=== PATIENT | male | born 1950 | race Caucasian/White ===

== ENCOUNTER 2016-09-09 09:33 | Emergency (ER) | payer MEDICARE, OTHER ==
--- NOTE | 2016-09-09 10:11 | ERPHSYRPT ---
- History of Present Illness Time Seen by Provider: 09/09/16 10:00 Source: patient, EMS Exam Limitations: no limitations Patient Subjective Stated Complaint: PT FOUND BY SPOUSE THIS AM UNRESPONSIVE IN BED, PT DOESN'T RECALL EVENTS PRIOR TO EMS ARRIVAL. PT STATES HE IS DIABETIC AND HIS BS WAS FOUND TO BE 37. PT STATES HE JUST "FEELS FUNNY". Triage Nursing Assessment: PT IS ALERT AND TALKING, TX TO TRT AREA PER EMS, SKIN IS PWD, RESPS ARE EASY AND NON LABORED. Physician History: The patient is a 66-year-old male with his brought in by ambulance from home where he was not responding in his normal self this morning when he woke up. The alarm was sent for 7:30 and he did not wake up to turn it off. After about a half an hour later, his noticed that she was not acting his usual self. He is diabetic so she checked his blood sugar and found that it was 37. She gave him some cake icing and Mountain Dew before EMS arrived. He was then given oral glucose and has been feeling much better. Yesterday evening he ate a large helping of spaghetti, garlic toast, a peanut butter cookie, and then an apple for a snack at night. He has not changed his medicines. For the past week he has been having low back pain. He also has a low-grade fever. He denies abdominal pain, cough, or urinary problems. His past medical history is significant for diabetes, high blood pressure, high cholesterol, BPH, congestive heart failure, GERD, kidney stones, and rheumatoid arthritis. Timing/Duration: today Severity: moderate Modifying Factors: Improves With: eating Associated Symptoms: malaise, weakness Allergies/Adverse Reactions: moxifloxacin [From Avelox] Allergy (Verified 09/09/16 09:49) tizanidine Allergy (Verified 09/09/16 09:49) midazolam [From Versed] Adverse Reaction (Verified 09/09/16 09:49) Penicillins Adverse Reaction (Verified 09/09/16 09:49) spironolactone [From Aldactone] Adverse Reaction (Verified 09/09/16 09:49) Home Medications: Acetaminophen [Acetaminophen Extra Strength] 500 mg PO Q4HPRN PRN 09/09/16 [ History] Acetaminophen [Tylenol] 325 mg PO Q4HPRN PRN 09/09/16 [History] Amlodipine Besylate/Benazepril [Lotrel 10-20 mg Capsule] 1 each PO DAILY [History] Aspirin 81 gm Chew [Baby Aspirin 81 mg Chew] 81 mg PO DAILY 09/09/16 [ History] Carvedilol [Coreg] 25 mg PO BID 09/09/16 [History] Cholecalciferol (Vitamin D3) [Vitamin D] 2,000 unit PO QAM 09/09/16 [ History] Fluticasone/Salmeterol Disc [Advair 250-50 Diskus 14 Dose] 1 each IH BID 09/09/16 [History] Furosemide 20 mg [Lasix 20 mg] 20 mg PO DAILY 09/09/16 [History] Glipizide 10 mg [Glucotrol 10 MG] 10 mg PO QAM 09/09/16 [History] Lansoprazole [Prevacid] 40 mg PO DAILY 09/09/16 [History] Magnesium Oxide 400 mg [Mag-Ox 400] 400 mg PO BID 09/09/16 [History] Multivitamin [Multivitamins] 1 each PO DAILY 09/09/16 [History] NPH, Human Insulin Isophane [Humulin N] 40 units SQ HS 09/09/16 [History] NPH, Human Insulin Isophane [Humulin N] 45 unit SQ QAM 09/09/16 [History] Potassium Chloride 10 Meq Tab* [Klor Con 10 MEQ] 10 meq PO DAILY 09/09/16 [ History] Prednisone 7.5 mg PO DAILY 09/09/16 [History] Tamsulosin HCl 0.4 mg [Flomax 0.4 MG] 0.4 mg PO HS 09/09/16 [History] Tramadol HCl 50 mg [Ultram 50 mg] 50 mg PO TID PRN 09/09/16 [History] Vitamin E 400 Units [Vitamin E 400 UNIT SOFTGEL] 400 unit PO DAILY [History] Zolpidem Tartrate [Ambien] 10 mg PO HS 09/09/16 [History] Hx Tetanus, Diphtheria Vaccination/Date Given: Yes Hx Influenza Vaccination/Date Given: Yes Hx Pneumococcal Vaccination/Date Given: No Immunizations Up to Date: Yes - Review of Systems Constitutional: Fever Eyes: No Symptoms Ears, Nose, & Throat: No Symptoms Respiratory: No Cough, No Dyspnea Cardiac: No Chest Pain, No Edema, No Syncope Abdominal/Gastrointestinal: No Abdominal Pain, No Nausea, No Vomiting, No Diarrhea Genitourinary Symptoms: No Dysuria Musculoskeletal: Back Pain Skin: No Rash Neurological: Lethargy Psychological: No Symptoms Endocrine: No Symptoms Hematologic/Lymphatic: No Symptoms Immunological/Allergic: No Symptoms All Other Systems: Reviewed and Negative - Past Medical History Pertinent Past Medical History: Yes Cardiac History: Arrhythmia, Other Respiratory History: Asthma Endocrine Medical History: Diabetes Type II GI Medical History: GERD, Other Male Reproductive Disorders: Prostate Problems - Past Surgical History Past Surgical History: Yes Cardiac: Cardiac Catheterization, Internal Defibrillator, Pacemaker Gastrointestinal: Other Genitourinary: Other Musculoskeletal: Joint Replacement, Orthopedic Surgery Other Surgical History: CARPAL TUNNEL, CHYLOUS MESENTERY CYST, KIDNEY STONE - Social History Smoking Status: Never smoker Exposure to second hand smoke: No Drug Use: none - Nursing Vital Signs Nursing Vital Signs: Initial Vital Signs Temperature 98.0 F Pulse Rate 74 Respiratory Rate 18 Blood Pressure [Right Arm] 126/69 Pain Intensity 0 - Physical Exam General Appearance: no apparent distress, alert Eye Exam: PERRL/EOMI, eyes nml inspection Ears, Nose, Throat Exam: normal ENT inspection, TMs normal, pharynx normal, moist mucous membranes Neck Exam: normal inspection, non-tender, supple, full range of motion Respiratory Exam: normal breath sounds, lungs clear, No respiratory distress Cardiovascular Exam: regular rate/rhythm, normal heart sounds, normal peripheral pulses Gastrointestinal/Abdomen Exam: soft, normal bowel sounds, No tenderness, No mass Rectal Exam: not done Back Exam: normal inspection, normal range of motion, No CVA tenderness, No vertebral tenderness Extremity Exam: normal inspection, normal range of motion, pelvis stable Neurologic Exam: alert, oriented x 3, cooperative, normal mood/affect, nml cerebellar function, nml station & gait, sensation nml, No motor deficits Skin Exam: normal color, warm, dry, No rash Lymphatic Exam: No adenopathy SpO2 Interpretation: normal SpO2: 98 Oxygen Delivery: Room Air Ordered Tests: Active Orders 24 hr Category Date Time Status ACCUCHECK [Accucheck] STAT Care 09/09/16 10:19 Active IV Insertion STAT Care 09/09/16 10:18 Active CBC W DIFF Stat Lab 09/09/16 10:30 Completed CMP Stat Lab 09/09/16 10:30 Completed Lactic Acid Urgent Lab 09/09/16 10:50 Completed UA W/RFX UR CULTURE Stat Lab 09/09/16 10:30 Completed Medication Summary Discontinued Medications Generic Name Dose Route Start Last Admin Trade Name Ellen PRN Reason Stop Dose Admin Sodium Chloride 1,000 mls @ 999 mls/hr 09/09/16 10:18 09/09/16 10:30 Sodium Chloride 0.9% 1000 Ml IV 09/09/16 11:18 999 mls/hr .Q1H1M STA Administration Sodium Chloride Confirm 09/09/16 10:26 Sodium Chloride 0.9% 1000 Ml Administered 09/09/16 10:27 Dose 1,000 mls @ ud .ROUTE .STK-MED ONE Lab/Rad Data: Laboratory Result Diagrams 09/09/16 10:30 09/09/16 10:30 Laboratory Results 09/09/16 09/09/16 09/09/16 Range/Units 10:50 10:30 10:30 WBC (4.0-10.5) K/mm3 RBC (4.1-5.6) M/mm3 Hgb (12.5-18.0) gm/dl Hct (42-50) % MCV (78-100) fl MCH (26-32) pg MCHC (32-36) g/dl RDW (11.5-14.0) % Plt Count (150-450) K/mm3 MPV (6-9.5) fl Gran % (36.0-66.0) % Lymphocytes % (24.0-44.0) % Monocytes % (0.0-12.0) % Eosinophils % (0.00-5.0) % Basophils % (0.0-0.4) % Basophils # (0-0.4) Sodium 140 (136-145) mEq/L Potassium 3.7 (3.5-5.1) mEq/L Chloride 104 (98-107) mEq/L Carbon Dioxide 29.7 (21-32) mEq/L Anion Gap 10.0 (5-15) MEQ/L BUN 15 (9-20) mg/dL Creatinine 0.96 (0.55-1.30) mg/dl Estimated GFR > 60 ML/MIN Glucose 126 H (70-110) MG/DL Lactic Acid 1.6 (0.4-2.0) Calcium 8.7 (8.5-10.1) mg/dL Total Bilirubin 0.70 (0.2-1.0) mg/dL AST 21 (15-37) U/L ALT 23 (12-78) U/L Alkaline Phosphatase 42 L (46-116) U/L Serum Total Protein 7.2 (6.4-8.2) gm/dL Albumin 3.8 (3.4-5.0) g/dL Ur Collection Type VOID Urine Color YELLOW (YELLOW) Urine Appearance CLEAR (CLEAR) Urine pH 6.5 (5-6) Ur Specific [place] 1.025 (1.005-1.025) Urine Protein NEGATIVE (Negative) Urine Glucose (UA) NEGATIVE (NEGATIVE) mg/dL Urine Ketones NEGATIVE (NEGATIVE) Urine Nitrite NEGATIVE (NEGATIVE) Urine Bilirubin NEGATIVE (NEGATIVE) Urine Urobilinogen 0.2 (0-1) mg/dL Urine WBC (Auto) NEGATIVE (NEGATIVE) Urine RBC (Auto) NEGATIVE (0-5) Cade/ul Specimen Received 09/09/16 1053 09/09/16 Range/Units 10:30 WBC 5.3 (4.0-10.5) K/mm3 RBC 4.69 (4.1-5.6) M/mm3 Hgb 13.0 (12.5-18.0) gm/dl Hct 42.2 (42-50) % MCV 90.0 (78-100) fl MCH 27.7 (26-32) pg MCHC 30.8 L (32-36) g/dl RDW 13.0 (11.5-14.0) % Plt Count 196 (150-450) K/mm3 MPV 9.8 H (6-9.5) fl Gran % 58.7 (36.0-66.0) % Lymphocytes % 29.2 (24.0-44.0) % Monocytes % 12.1 H (0.0-12.0) % Eosinophils % 0.0 (0.00-5.0) % Basophils % 0.0 (0.0-0.4) % Basophils # 0 (0-0.4) Sodium (136-145) mEq/L Potassium (3.5-5.1) mEq/L Chloride (98-107) mEq/L Carbon Dioxide (21-32) mEq/L Anion Gap (5-15) MEQ/L BUN (9-20) mg/dL Creatinine (0.55-1.30) mg/dl Estimated GFR ML/MIN Glucose (70-110) MG/DL Lactic Acid (0.4-2.0) Calcium (8.5-10.1) mg/dL Total Bilirubin (0.2-1.0) mg/dL AST (15-37) U/L ALT (12-78) U/L Alkaline Phosphatase (46-116) U/L Serum Total Protein (6.4-8.2) gm/dL Albumin (3.4-5.0) g/dL Ur Collection Type Urine Color (YELLOW) Urine Appearance (CLEAR) Urine pH (5-6) Ur Specific [place] (1.005-1.025) Urine Protein (Negative) Urine Glucose (UA) (NEGATIVE) mg/dL Urine Ketones (NEGATIVE) Urine Nitrite (NEGATIVE) Urine Bilirubin (NEGATIVE) Urine Urobilinogen (0-1) mg/dL Urine WBC (Auto) (NEGATIVE) Urine RBC (Auto) (0-5) Cade/ul Specimen Received - Progress Progress: improved Counseled pt/family regarding: lab results, diagnosis, need for follow-up, rad results - Departure Time of Disposition: 11:41 Departure Disposition: Home Clinical Impression: Hypoglycemia Condition: Stable Critical Care Time: No Additional Instructions: You had a hypoglycemic event this morning. Your laboratory results were all normal. You were given 1 L of normal saline by IV in the ER. You are being released to home. Continue with your usual routine. Do not change her medications at this time. Follow-up next week as scheduled with your primary medical doctor. Return to the ER if your condition worsens.
[2016-09-09] MEDS ORDERED: Sodium Chloride 0.9% 1000 ML 1,000 ML IV STA (10:18)
[2016-09-09] MEDS ORDERED: Sodium Chloride 0.9% 1000 ML 1,000 ML ONE (10:26)
[2016-09-09 10:50] LABS: ADD URINE CULTURE? NO (NO); COMPLETE URINE MICROSCOPIC? NO; Collection Type VOID; Ph 6.5 (5-6)
[2016-09-09 10:54] LABS: Granulocytes % 58.7 % (36.0-66.0); Lymphocytes % 29.2 % (24.0-44.0); Mean Corpuscular Hemoglobin 27.7 pg (26-32); Mean Platelet Volume 9.8 fl (6-9.5); Monocytes % 12.1 % (0.0-12.0); Platelet Count 196 K/mm3 (150-450); Red Blood Count 4.69 M/mm3 (4.1-5.6); White Blood Count 5.3 K/mm3 (4.0-10.5)
[2016-09-09 11:13] LABS: ALBUMIN 3.8 g/dL (3.4-5.0); ALKALINE PHOSPHATASE 42 U/L (46-116); BLOOD UREA NITROGEN 15 mg/dL (9-20); CHLORIDE 104 mEq/L (98-107); Carbon Dioxide 29.7 mEq/L (21-32); Glucose 126 MG/DL (70-110); Potassium 3.7 mEq/L (3.5-5.1); SGOT/AST 21 U/L (15-37); SGPT/ALT 23 U/L (12-78); SODIUM 140 mEq/L (136-145); Total Protein 7.2 gm/dL (6.4-8.2)
[2016-09-09 11:27] VITALS: PULSE 74
[2016-09-09 11:58] VITALS: BP 131/74; O2SAT 97
== END 2016-09-09 11:57 | disposition home or self-care (01) ==
LOC: ED 09:33
DX: E16.2 Hypoglycemia, unspecified (principal); E11.9 Type 2 diabetes mellitus without complications; Z79.84 Long term (current) use of oral hypoglycemic drugs; Z79.4 Long term (current) use of insulin; Z79.899 Other long term (current) drug therapy; I10 Essential (primary) hypertension; E78.00 Pure hypercholesterolemia, unspecified; I50.9 Heart failure, unspecified; K21.9 Gastro-esophageal reflux disease without esophagitis
CPT/HCPCS: 36415; 80053; 81002; 82962; 83605; 85025; 96360; 99284

== ENCOUNTER 2017-10-14 05:14 | Observation (INO) | payer MEDICARE, OTHER ==
[2017-10-14] MEDS ORDERED: Sodium Chloride 0.9% 1000 ML 1,000 ML IV STA (05:31)
[2017-10-14] MEDS ORDERED: NITRO-BID 2% UD PACKETS TOP ONE (05:31)
[2017-10-14] MEDS ORDERED: BABY ASPIRIN 81 MG CHEW PO ONE (05:31)
[2017-10-14] MEDS ORDERED: MORPHINE SULFATE 4 MG INJ IV ONE (05:31)
[2017-10-14] MEDS ORDERED: Sodium Chloride 0.9% 1000 ML 1,000 ML ONE (05:41)
[2017-10-14 05:43] LABS: BASOPHIL % 0.1 % (0.0-0.4); Basophil (Absolute #) 0.01 (0-0.4); Eosinophil % 0.1 % (0.00-5.0); Eosinophil (Absolute #) 0.01 (0-0.5); Granulocyte Absolute (ANC) 6.69 (1.4-6.9); Granulocytes % 77.9 % (36.0-66.0); Hematocrit 39.1 % (42-50); Hemoglobin 12.6 gm/dl (12.5-18.0); Lymphocyte (Absolute #) 1.17 (1.0-4.6); Lymphocytes % 13.6 % (24.0-44.0); Mean Cell Volume 87.5 fl (78-100); Mean Corpuscular Hemoglobin 28.2 pg (26-32); Mean Corpuscular Hgb Concent. 32.2 g/dl (32-36); Mean Platelet Volume 9.6 fl (6-9.5); Monocyte (Absolute #) 0.71 (0.0-1.3); Monocytes % 8.3 % (0.0-12.0); Platelet Count 221 K/mm3 (150-450); Red Blood Count 4.47 M/mm3 (4.1-5.6); Red Cell Distribution Width 13.1 % (11.5-14.0); White Blood Count 8.6 K/mm3 (4.0-10.5)
--- NOTE | 2017-10-14 05:57 | ERPHSYRPT ---
- History of Present Illness Time Seen by Provider: 10/14/17 05:55 Historian: patient, family Exam Limitations: no limitations Patient Subjective Stated Complaint: pt is alert and oriented. pt is ambulatory. pt comes in with c/o chest pain. pt denies nausea, vomiting, diaphoresis, lightheadedness, dizziness. pt has had this chest pain for 3 days with some SOB over those days. tonight he describes his pain as a pressure in his chest. Triage Nursing Assessment: see above Physician History: pt comes in with c/o chest pain. pt denies nausea, vomiting, diaphoresis, lightheadedness, dizziness. pt has had this chest pain for 3 days with some SOB over those days. tonight he describes his pain as a pressure in his chest. Timing/Duration: today Activities at Onset: none Quality: aching Location: substernal Chest Pain Radiation: back Severity of Pain-Max: moderate Severity of Pain-Current: moderate Modifying Factors: Improves With: nothing Associated Symptoms: fatigue, weakness Prior Chest Pain/Cardiac Workup: cardiac cath, stress test Nitro Today/Relief: no nitro taken today Aspirin Treatment Today: 81 mg x 1 Allergies/Adverse Reactions: moxifloxacin [From Avelox] Allergy (Verified 09/09/16 09:49) tizanidine Allergy (Verified 09/09/16 09:49) midazolam [From Versed] Adverse Reaction (Verified 09/09/16 09:49) Penicillins Adverse Reaction (Verified 09/09/16 09:49) spironolactone [From Aldactone] Adverse Reaction (Verified 09/09/16 09:49) Hx Tetanus, Diphtheria Vaccination/Date Given: Yes Hx Influenza Vaccination/Date Given: Yes Hx Pneumococcal Vaccination/Date Given: Yes Immunizations Up to Date: Yes - Review of Systems Constitutional: No Fever, No Chills Eyes: No Symptoms Ears, Nose, & Throat: No Symptoms Respiratory: No Cough, No Dyspnea Cardiac: Chest Pain, No Edema, No Syncope Abdominal/Gastrointestinal: No Abdominal Pain, No Nausea, No Vomiting, No Diarrhea Genitourinary Symptoms: No Dysuria Musculoskeletal: No Back Pain, No Neck Pain Skin: No Rash Neurological: No Dizziness, No Focal Weakness, No Sensory Changes Psychological: No Symptoms Endocrine: No Symptoms All Other Systems: Reviewed and Negative - Past Medical History Pertinent Past Medical History: Yes Cardiac History: Arrhythmia, Other Respiratory History: Asthma Endocrine Medical History: Diabetes Type II Musculoskeletal History: Rheumatoid Arthritis GI Medical History: GERD, Other History: No Pertinent History Psycho-Social History: No Pertinent History Male Reproductive Disorders: Prostate Problems - Past Surgical History Past Surgical History: Yes Cardiac: Cardiac Catheterization, Internal Defibrillator, Pacemaker Gastrointestinal: Other Genitourinary: Other Musculoskeletal: Joint Replacement, Orthopedic Surgery Other Surgical History: CARPAL TUNNEL, CHYLOUS MESENTERY CYST, KIDNEY STONE - Social History Smoking Status: Never smoker Exposure to second hand smoke: No Drug Use: none Patient Lives Alone: No - Nursing Vital Signs Nursing Vital Signs: Initial Vital Signs Temperature 99.1 F 10/14/17 05:15 Pulse Rate 91 H 10/14/17 05:15 Respiratory Rate 16 10/14/17 05:15 Blood Pressure 165/79 10/14/17 05:15 O2 Sat by Pulse Oximetry 96 10/14/17 05:15 Pain Scale Pain Intensity 6 - Physical Exam General Appearance: no apparent distress, alert Eye Exam: PERRL/EOMI, eyes nml inspection Ears, Nose, Throat Exam: normal ENT inspection, moist mucous membranes Neck Exam: normal inspection, non-tender, supple, full range of motion Respiratory Exam: normal breath sounds, lungs clear, No respiratory distress Cardiovascular Exam: regular rate/rhythm, normal heart sounds Gastrointestinal/Abdomen Exam: soft, No tenderness, No mass Back Exam: normal inspection, No CVA tenderness, No vertebral tenderness Extremity Exam: normal inspection, normal range of motion Neurologic Exam: alert, oriented x 3, cooperative, normal mood/affect, sensation nml, No motor deficits Skin Exam: normal color, warm, dry SpO2: 96 Oxygen Delivery: Room Air - Course Nursing assessment & vital signs reviewed: Yes EKG Interpreted by Me: Sinus Rhythm - Radiology Exams Chest X-ray Interpretation: Reviewed by me Ordered Tests: Active Orders 24 hr Category Date Time Status EKG-ER Only STAT Care 10/14/17 05:31 Active Oxygen-ED Only NASAL CANNULA 2 lpm Care 10/14/17 05:31 Active CHEST 1 VIEW (PORTABLE) Stat Exams 10/14/17 05:34 Completed CBC W DIFF Stat Lab 10/14/17 05:39 Completed CMP Stat Lab 10/14/17 05:39 Completed D-DIMER QUANTITATION Stat Lab 10/14/17 05:39 Completed NT PRO BNP Stat Lab 10/14/17 05:39 Completed TROPONIN Q3H Lab 10/14/17 05:39 Completed TROPONIN Q3H Lab 10/14/17 08:45 Ordered TROPONIN Q3H Lab 10/14/17 11:45 Ordered TROPONIN Q3H Lab 10/14/17 14:45 Ordered TROPONIN Q3H Lab 10/14/17 17:45 Ordered Medication Summary Discontinued Medications Generic Name Dose Route Start Last Admin Trade Name Ellen PRN Reason Stop Dose Admin Aspirin 81 mg 10/14/17 05:31 10/14/17 06:46 Baby Aspirin 81 Mg Chew PO 10/14/17 05:32 81 mg STAT ONE Administration Aspirin Confirm 10/14/17 06:25 Baby Aspirin 81 Mg Chew Administered 10/14/17 06:26 Dose 81 mg .ROUTE .STK-MED ONE Sodium Chloride 1,000 mls @ 999 mls/hr 10/14/17 05:31 10/14/17 06:09 Sodium Chloride 0.9% 1000 Ml IV 10/14/17 06:31 999 mls/hr .Q1H1M STA Administration Sodium Chloride Confirm 10/14/17 05:41 Sodium Chloride 0.9% 1000 Ml Administered 10/14/17 05:42 Dose 1,000 mls @ ud .ROUTE .STK-MED ONE Morphine Sulfate 4 mg 10/14/17 05:31 10/14/17 06:46 Morphine Sulfate 4 Mg Inj IV 10/14/17 05:32 4 mg STAT ONE Administration Morphine Sulfate Confirm 10/14/17 06:25 Morphine Sulfate 4 Mg Inj Administered 10/14/17 06:26 Dose 4 mg .ROUTE .STK-MED ONE Nitroglycerin 1 gm 10/14/17 05:31 10/14/17 06:46 Nitro-Bid 2% Ud Packets TOP 10/14/17 05:32 1 gm STAT ONE Administration Nitroglycerin Confirm 10/14/17 06:25 Nitro-Bid 2% Ud Packets Administered 10/14/17 06:26 Dose 1 gm .ROUTE .STK-MED ONE Lab/Rad Data: Laboratory Result Diagrams 10/14/17 05:39 10/14/17 05:39 Laboratory Results 10/14/17 10/14/17 10/14/17 Range/Units 05:39 05:39 05:39 WBC (4.0-10.5) K/mm3 RBC (4.1-5.6) M/mm3 Hgb (12.5-18.0) gm/dl Hct (42-50) % MCV (78-100) fl MCH (26-32) pg MCHC (32-36) g/dl RDW (11.5-14.0) % Plt Count (150-450) K/mm3 MPV (6-9.5) fl Gran % (36.0-66.0) % Eos # (Auto) (0-0.5) Absolute Lymphs (auto) (1.0-4.6) Absolute Monos (auto) (0.0-1.3) Lymphocytes % (24.0-44.0) % Monocytes % (0.0-12.0) % Eosinophils % (0.00-5.0) % Basophils % (0.0-0.4) % Absolute Granulocytes (1.4-6.9) Basophils # (0-0.4) D-Dimer 855 H* (215-500) ng/mL Sodium 135 L (137-145) mmol/L Potassium 4.8 (3.5-5.1) mmol/L Chloride 100 (98-107) mmol/L Carbon Dioxide 28 (22-30) mmol/L Anion Gap 11.7 (5-15) MEQ/L BUN 24 H (9-20) mg/dL Creatinine 0.61 L (0.66-1.25) mg/dL Estimated GFR > 60.0 ML/MIN Glucose 274 H (74-106) mg/dL Calcium 9.3 (8.4-10.2) mg/dL Total Bilirubin 0.70 (0.2-1.3) mg/dL AST 31 (17-59) U/L ALT 23 (0-50) U/L Alkaline Phosphatase 43 (38-126) U/L Troponin I 0.025 (0.000-0.034) ng/mL NT-Pro-B Natriuret Pep 216 (0-900) pg/mL Serum Total Protein 6.8 (6.3-8.2) g/dL Albumin 4.2 (3.5-5.0) g/dL 10/14/17 Range/Units 05:39 WBC 8.6 (4.0-10.5) K/mm3 RBC 4.47 (4.1-5.6) M/mm3 Hgb 12.6 (12.5-18.0) gm/dl Hct 39.1 L (42-50) % MCV 87.5 (78-100) fl MCH 28.2 (26-32) pg MCHC 32.2 (32-36) g/dl RDW 13.1 (11.5-14.0) % Plt Count 221 (150-450) K/mm3 MPV 9.6 H (6-9.5) fl Gran % 77.9 H (36.0-66.0) % Eos # (Auto) 0.01 (0-0.5) Absolute Lymphs (auto) 1.17 (1.0-4.6) Absolute Monos (auto) 0.71 (0.0-1.3) Lymphocytes % 13.6 L (24.0-44.0) % Monocytes % 8.3 (0.0-12.0) % Eosinophils % 0.1 (0.00-5.0) % Basophils % 0.1 (0.0-0.4) % Absolute Granulocytes 6.69 (1.4-6.9) Basophils # 0.01 (0-0.4) D-Dimer (215-500) ng/mL Sodium (137-145) mmol/L Potassium (3.5-5.1) mmol/L Chloride (98-107) mmol/L Carbon Dioxide (22-30) mmol/L Anion Gap (5-15) MEQ/L BUN (9-20) mg/dL Creatinine (0.66-1.25) mg/dL Estimated GFR ML/MIN Glucose (74-106) mg/dL Calcium (8.4-10.2) mg/dL Total Bilirubin (0.2-1.3) mg/dL AST (17-59) U/L ALT (0-50) U/L Alkaline Phosphatase (38-126) U/L Troponin I (0.000-0.034) ng/mL NT-Pro-B Natriuret Pep (0-900) pg/mL Serum Total Protein (6.3-8.2) g/dL Albumin (3.5-5.0) g/dL - Progress Progress: improved Air Movement: good Blood Culture(s) Obtained: No Antibiotics given: No Discussed with : Nate Will see patient in: hospital (observation) Counseled pt/family regarding: lab results, diagnosis, need for follow-up, rad results - Departure Time of Disposition: 06:54 Departure Disposition: Observation Clinical Impression: Elevated d-dimer Chest pain Qualifiers: Chest pain type: other chest pain Qualified Code(s): R07.89 - Other chest pain ; R07.8 - Other chest pain Condition: Fair Critical Care Time: Yes Critical Care Time(excluding separately billable procedures): 30-74 minutes Referrals: ANGEL VERMA MD [Primary Care Provider] -
[2017-10-14 06:00] LABS: ALBUMIN 4.2 g/dL (3.5-5.0); ALKALINE PHOSPHATASE 43 U/L (38-126); ANION GAP 11.7 MEQ/L (5-15); BLOOD UREA NITROGEN 24 mg/dL (9-20); CHLORIDE 100 mmol/L (98-107); Calcium 9.3 mg/dL (8.4-10.2); Carbon Dioxide 28 mmol/L (22-30); Creatinine 1 0.61 mg/dL (0.66-1.25); Glucose 274 mg/dL (74-106); Potassium 4.8 mmol/L (3.5-5.1); SGOT/AST 31 U/L (17-59); SGPT/ALT 23 U/L (0-50); SODIUM 135 mmol/L (137-145); Total Protein 6.8 g/dL (6.3-8.2)
[2017-10-14 06:09] LABS: NT PRO BNP 216 pg/mL (0-900)
--- NOTE | 2017-10-14 06:10 | XRAY ---
Indication: Chest pain. Comparison: January 13, 2016. Portable apical lordotic chest remains clear again with a few incidental calcified granulomas. Heart is not enlarged again with left-sided dual lead pacemaker. Vascularity normal. Bony thorax intact with minimal degenerative changes. Impression: Stable nonacute chest with chronic features.
[2017-10-14] MEDS ORDERED: NITRO-BID 2% UD PACKETS ONE (06:25)
[2017-10-14] MEDS ORDERED: MORPHINE SULFATE 4 MG INJ ONE (06:25)
[2017-10-14] MEDS ORDERED: BABY ASPIRIN 81 MG CHEW ONE (06:25)
[2017-10-14] MEDS ORDERED: MAALOX ES 30 ML UNIT DOSE PO PRN (07:45)
[2017-10-14] MEDS ORDERED: MILK OF MAGNESIA 30 ML PO PRN (07:45)
[2017-10-14] MEDS ORDERED: Senokot-S Tablet PO PRN (07:45)
[2017-10-14] MEDS ORDERED: Zofran 4 MG/2 ML VIAL IV PRN (07:45)
[2017-10-14] MEDS ORDERED: TYLENOL 325 MG PO PRN (07:45)
[2017-10-14] MEDS ORDERED: MORPHINE SULFATE 2 MG INJ IV PRN ×2 (08:40→09:15)
[2017-10-14] MEDS ORDERED: MORPHINE SULFATE 4 MG INJ IV PRN (09:10)
[2017-10-14] MEDS ORDERED: ULTRAM 50 MG PO PRN (09:33)
[2017-10-14] MEDS ORDERED: TYLENOL EXTRA STRENGTH 500 MG PO PRN (09:48)
[2017-10-14] MEDS ORDERED: LANSOPRAZOLE 40 MG PO SCH (10:00)
[2017-10-14] MEDS ORDERED: Klor Con 10 MEQ PO SCH (10:00)
[2017-10-14] MEDS ORDERED: Advair Hfa 115/21 Common canister IH SCH (10:00)
[2017-10-14] MEDS ORDERED: Protonix 40MG Tablet PO SCH (10:00)
[2017-10-14] MEDS ORDERED: NON-FORMULARY ITEM (Fluticasone/Vilanterol [Breo Ellipta 100-25 Mcg Inh] 1 EACH) IH SCH (10:00)
[2017-10-14] MEDS ORDERED: ECOTRIN 81 MG PO SCH (10:00)
[2017-10-14] MEDS ORDERED: COREG 12.5 MG PO SCH (10:00)
[2017-10-14] MEDS ORDERED: NON-FORMULARY ITEM (Carvedilol [Coreg] 25 MG) PO SCH (10:00)
[2017-10-14] MEDS ORDERED: Flomax 0.4 MG PO SCH (10:00)
[2017-10-14] MEDS ORDERED: Ecotrin 325 MG PO SCH (10:00)
[2017-10-14] MEDS ORDERED: DELTASONE 5 MG PO SCH (10:00)
[2017-10-14] MEDS ORDERED: BABY ASPIRIN 81 MG CHEW PO SCH (10:00)
[2017-10-14] MEDS ORDERED: NON-FORMULARY ITEM (Cholecalciferol (Vitamin D3) [Vitamin D] 2,000 UNIT) PO SCH (10:00)
[2017-10-14] MEDS ORDERED: NON-FORMULARY ITEM (Amlodipine Besylate/Benazepril [Lotrel 10-20 Mg Capsule] 1 EACH) PO SCH (10:00)
[2017-10-14] MEDS ORDERED: Lotrel 5/10 MG PO SCH (10:00)
[2017-10-14] MEDS ORDERED: ENOXAPARIN SODIUM SQ SCH (10:00)
[2017-10-14] MEDS ORDERED: MAG-OX 400 PO SCH (10:00)
[2017-10-14] MEDS ORDERED: Novolin N SQ SCH (10:00)
[2017-10-14] MEDS ORDERED: LASIX 20 MG PO SCH (10:00)
[2017-10-14] MEDS ORDERED: VITAMIN D PO SCH (10:00)
[2017-10-14] MEDS: Vitamin E 400 UNIT SOFTGEL PO SCH ×2 (10:56→11:03)
[2017-10-14 12:07] VITALS: BP 133/61; PULSE 74; O2SAT 96
[2017-10-14] MEDS ORDERED: THERAGRAN MULTIVITAMIN PO SCH (22:00)
[2017-10-14] MEDS ORDERED: Ambien 10 MG PO SCH (22:00)
[2017-10-14] MEDS ORDERED: NON-FORMULARY ITEM (Multivitamin [Multivitamins] 1 EACH) PO SCH (22:00)
== END 2017-10-14 13:45 | disposition short-term general hospital (02) ==
LOC: ED 05:14 → MED SURG 07:42
PROVIDERS: ADMIT General Practice; ATTEND General Practice
DX: R07.89 Other chest pain (principal); R79.89 Other specified abnormal findings of blood chemistry; Z79.899 Other long term (current) drug therapy; E11.9 Type 2 diabetes mellitus without complications
CPT/HCPCS: 36415; 71045; 80053; 83036; 83880; 84484; 85025; 85379; 93005; 93268; 96374; 99285; G0378; J1650; J2270; A9270-GY

== ENCOUNTER 2018-07-11 11:53 | Emergency (ER) | payer MEDICARE, OTHER ==
[2018-07-11 12:29] VITALS: BP 158/83; PULSE 82; O2SAT 98
[2018-07-11 12:38] LABS: BASOPHIL % 0.1 % (0.0-0.4); Basophil (Absolute #) 0.01 (0-0.4); Eosinophil % 0.1 % (0.00-5.0); Eosinophil (Absolute #) 0.01 (0-0.5); Granulocyte Absolute (ANC) 8.94 (1.4-6.9); Granulocytes % 84.9 % (36.0-66.0); Hemoglobin 13.2 gm/dl (12.5-18.0); Lymphocyte (Absolute #) 0.87 (1.0-4.6); Lymphocytes % 8.3 % (24.0-44.0); Mean Cell Volume 88.2 fl (78-100); Mean Corpuscular Hemoglobin 27.7 pg (26-32); Mean Corpuscular Hgb Concent. 31.4 g/dl (32-36); Monocytes % 6.6 % (0.0-12.0); Platelet Count 212 K/mm3 (150-450); Red Blood Count 4.76 M/mm3 (4.1-5.6); Red Cell Distribution Width 14.5 % (11.5-14.0); White Blood Count 10.5 K/mm3 (4.0-10.5)
--- NOTE | 2018-07-11 12:50 | ERPHSYRPT ---
- History of Present Illness Time Seen by Provider: 07/11/18 12:25 Source: patient, family Patient Subjective Stated Complaint: sore on right foot 4th toe since May. states just not healing. got off ATB last monday. Triage Nursing Assessment: alert and in no distress. c/o non healing sore to right 4th toes since may. has been taking care of it with Dr Verma and PT for wound care. has been slightly bleeding but no yellow drainage per pt. redness at toes. + pedal pulse present. Physician History: 68 y/o diabetic white male presents with chronic wound right 4th toe. pt just completed clindamycin antibx. pt is undergoing wound care. pt sent here to ED today because of concern infection worse. pts pcp is dr. verma. pt denies increase in pain. denies fever. however, redness and wound worse. Method of Injury: other (chronic open wound) Occurred: other (chronic) Severity of Pain-Max: none Severity of Pain-Current: none Lower Extremities Pain: 4th toe: right Modifying Factors: Improves With: other (sx worsening despite antibx and wound care) Allergies/Adverse Reactions: moxifloxacin [From Avelox] Allergy (Verified 09/09/16 09:49) tizanidine Allergy (Verified 09/09/16 09:49) midazolam [From Versed] Adverse Reaction (Verified 09/09/16 09:49) Penicillins Adverse Reaction (Verified 09/09/16 09:49) spironolactone [From Aldactone] Adverse Reaction (Verified 09/09/16 09:49) Home Medications: Acetaminophen [Tylenol Extra Strength] 500 mg PO Q6H PRN 10/14/17 [History] Amlodipine Besylate/Benazepril [Lotrel 10-20 mg Capsule] 1 each PO DAILY [History] Aspirin 81 mg PO DAILY 10/14/17 [History] Carvedilol [Coreg] 25 mg PO BID 10/14/17 [History] Cholecalciferol (Vitamin D3) [Vitamin D] 2,000 unit PO DAILY 10/14/17 [History] Fluticasone/Vilanterol [Breo Ellipta 100-25 Mcg INH] 1 each IH DAILY 10/14/17 [ History] Furosemide 20 mg [Lasix 20 mg] 20 mg PO DAILY 10/14/17 [History] Insulin NPH Human Recom [Novolin N] 40 unit SQ BID 10/14/17 [History] Lansoprazole [Prevacid] 40 mg PO DAILY 10/14/17 [History] Magnesium Oxide 400 mg [Mag-Ox 400] 400 mg PO BID 10/14/17 [History] Multivitamin [Multivitamins] 1 each PO HS 10/14/17 [History] Potassium Chloride 10 Meq Tab* [Klor Con 10 MEQ] 10 meq PO DAILY 10/14/17 [ History] Prednisone 7.5 mg PO DAILY 10/14/17 [History] Tamsulosin HCl [Flomax] 0.4 mg PO DAILY 10/14/17 [History] Tramadol HCl 50 mg [Ultram 50 mg] 50 mg PO TID PRN 10/14/17 [History] Vitamin E 400 unit PO DAILY 10/14/17 [History] Zolpidem Tartrate 10 mg [Ambien 10 MG] 10 mg PO HS 10/14/17 [History] Hx Tetanus, Diphtheria Vaccination/Date Given: Yes Hx Influenza Vaccination/Date Given: Yes Hx Pneumococcal Vaccination/Date Given: Yes Immunizations Up to Date: (unsure) - Review of Systems Constitutional: No Symptoms Eyes: No Symptoms Ears, Nose, & Throat: No Symptoms Respiratory: No Symptoms Cardiac: No Symptoms Abdominal/Gastrointestinal: No Symptoms Genitourinary Symptoms: No Symptoms Musculoskeletal: Other (right foot 4th toe worsening wound and redness) Skin: Cellulitis Neurological: No Symptoms Psychological: No Symptoms Endocrine: No Symptoms Hematologic/Lymphatic: No Symptoms Immunological/Allergic: No Symptoms All Other Systems: Reviewed and Negative - Past Medical History Pertinent Past Medical History: Yes Neurological History: No Pertinent History Cardiac History: Coronary Artery Disease, Hypertension, Myocardial Infarction ( [place]) Respiratory History: Asthma Endocrine Medical History: Diabetes Type I Musculoskeletal History: Osteoarthritis, Rheumatoid Arthritis GI Medical History: GERD, Other History: No Pertinent History Psycho-Social History: No Pertinent History Male Reproductive Disorders: Prostate Problems Other Medical History: PACEMAKER/DEFIBRILLATOR 09/2009. HX [place] 2017 - Past Surgical History Past Surgical History: Yes Cardiac: Cardiac Catheterization, Internal Defibrillator, Pacemaker Gastrointestinal: Other Genitourinary: Other Musculoskeletal: Joint Replacement, Orthopedic Surgery Other Surgical History: CARPAL TUNNEL, CHYLOUS MESENTERY CYST, KIDNEY STONE - Social History Smoking Status: Never smoker Exposure to second hand smoke: No Drug Use: none Patient Lives Alone: No - Nursing Vital Signs Nursing Vital Signs: Initial Vital Signs Temperature 99.1 F 07/11/18 12:19 Pulse Rate 82 07/11/18 12:19 Respiratory Rate 18 07/11/18 12:19 Blood Pressure 158/83 07/11/18 12:19 O2 Sat by Pulse Oximetry 98 07/11/18 12:19 Pain Scale Pain Intensity 2 - Physical Exam General Appearance: no apparent distress, alert, anxiety Eyes, Ears, Nose, Throat Exam: normal ENT inspection, moist mucous membranes Neck Exam: normal inspection, non-tender, supple, full range of motion Cardiovascular/Respiratory Exam: chest non-tender, normal breath sounds, regular rate/rhythm Gastrointestinal/Abdominal Exam: non-tender Back Exam: normal inspection, normal range of motion, No CVA tenderness, No vertebral tenderness Hips Exam: bilateral: non-tender, normal inspection, normal range of motion, no evidence of injury Legs Exam: bilateral leg: non-tender, normal inspection, normal range of motion , no evidence of injury Knees Exam: bilateral knee: non-tender, normal inspection, normal range of motion, no evidence of injury Ankle Exam: bilateral ankle: non-tender, normal inspection, normal range of motion, no evidence of injury Foot Exam: right foot: infection (4th digit), swelling (4th digit), left foot: non-tender, normal inspection, normal range of motion, no evidence of injury Neuro/Tendon Exam: normal motor functions Mental Status Exam: alert, oriented x 3, cooperative Skin Exam: other (redness and swelling around right 4th digit infection) SpO2 Interpretation: normal SpO2: 98 O2 Delivery: Room Air Ordered Tests: Active Orders 24 hr Category Date Time Status IV Insertion STAT Care 07/11/18 12:19 Active LOWER EXTREMITY WO CONTRAST [CT] Stat Exams 07/11/18 12:18 Completed BLOOD CULTURE Stat Lab 07/11/18 13:00 Received CBC W DIFF Stat Lab 07/11/18 12:30 Completed CMP Stat Lab 07/11/18 13:00 Completed CULTURE,WOUND Stat Lab 07/11/18 13:36 Ordered Medication Summary Discontinued Medications Generic Name Dose Route Start Last Admin Trade Name Freq PRN Reason Stop Dose Admin Trimethoprim/Sulfamethoxazole 1 tab 07/11/18 13:37 Bactrim Ds Tablet PO 07/11/18 13:38 STAT STA Lab/Rad Data: Laboratory Result Diagrams 07/11/18 12:30 07/11/18 13:00 Laboratory Results 07/11/18 07/11/18 Range/Units 13:00 12:30 WBC 10.5 (4.0-10.5) K/mm3 RBC 4.76 (4.1-5.6) M/mm3 Hgb 13.2 (12.5-18.0) gm/dl Hct 42.0 (42-50) % MCV 88.2 (78-100) fl MCH 27.7 (26-32) pg MCHC 31.4 L (32-36) g/dl RDW 14.5 H (11.5-14.0) % Plt Count 212 (150-450) K/mm3 MPV 10.0 H (6-9.5) fl Gran % 84.9 H (36.0-66.0) % Eos # (Auto) 0.01 (0-0.5) Absolute Lymphs (auto) 0.87 L (1.0-4.6) Absolute Monos (auto) 0.70 (0.0-1.3) Lymphocytes % 8.3 L (24.0-44.0) % Monocytes % 6.6 (0.0-12.0) % Eosinophils % 0.1 (0.00-5.0) % Basophils % 0.1 (0.0-0.4) % Absolute Granulocytes 8.94 H (1.4-6.9) Basophils # 0.01 (0-0.4) Sodium 139 (137-145) mmol/L Potassium 4.2 (3.5-5.1) mmol/L Chloride 99 (98-107) mmol/L Carbon Dioxide 28 (22-30) mmol/L Anion Gap 15.7 H (5-15) MEQ/L BUN 17 (9-20) mg/dL Creatinine 0.76 (0.66-1.25) mg/dL Estimated GFR > 60.0 ML/MIN Glucose 208 H (74-106) mg/dL Calcium 9.6 (8.4-10.2) mg/dL Total Bilirubin 0.70 (0.2-1.3) mg/dL AST 24 (17-59) U/L ALT 24 (0-50) U/L Alkaline Phosphatase 52 (38-126) U/L Serum Total Protein 7.5 (6.3-8.2) g/dL Albumin 4.5 (3.5-5.0) g/dL - Progress Progress: unchanged Progress Note: 07/11/18 13:[address] verma. agrees with tx plan here. will give rx for bactrim ds for home. pt to f/u with dr. verma office on Monday07/13/18 Discussed with : Ntae Counseled pt/family regarding: lab results, diagnosis, need for follow-up, rad results - Departure Departure Disposition: Home Clinical Impression: Toe infection Condition: Stable Critical Care Time: No Referrals: ANGEL VERMA MD [Primary Care Provider] - Additional Instructions: continue same wound care. call dr. verma's office today to arrange follow up appointment with his office on 07/13/18 Prescriptions: Smz/Tmp Ds Tablet [Bactrim Ds Tablet] 1 udtab PO BID #14 tablet
--- NOTE | 2018-07-11 12:55 | XRAY ---
Indication: 4th toe diabetic ulcer. Possible osteomyelitis. Multiple contiguous axial images obtained through the right foot without contrast. Sagittal and coronal reformatted images obtained. Comparison: None Visualized ankle/foot articulation appears anatomic. There are small degenerative subcortical cysts of the 1st-3rd cuneiforms and base 3rd metatarsal. Small plantar heel spur. Partially visualized accessory ossicle posterior to the talus. No acute fracture, dislocation, suspicious bony lesions, or osseous destructive process. Old medial malleolus fracture with 2 intact orthopedic screws. There are heavy scattered vascular calcifications throughout. Impression: Degenerative changes, old medial malleolar fracture, and heavy scattered vascular calcifications. Remaining CT right foot is negative. CTDI 74.34
[2018-07-11 13:13] LABS: ALBUMIN 4.5 g/dL (3.5-5.0); ALKALINE PHOSPHATASE 52 U/L (38-126); ANION GAP 15.7 MEQ/L (5-15); BLOOD UREA NITROGEN 17 mg/dL (9-20); CHLORIDE 99 mmol/L (98-107); Calcium 9.6 mg/dL (8.4-10.2); Carbon Dioxide 28 mmol/L (22-30); Creatinine 1 0.76 mg/dL (0.66-1.25); Glucose 208 mg/dL (74-106); Potassium 4.2 mmol/L (3.5-5.1); SGOT/AST 24 U/L (17-59); SGPT/ALT 24 U/L (0-50); SODIUM 139 mmol/L (137-145); Total Protein 7.5 g/dL (6.3-8.2)
[2018-07-11] MEDS ORDERED: BACTRIM DS TABLET PO STA (13:37)
[2018-07-11] MEDS ORDERED: BACTRIM DS TABLET PO ONE (14:17)
[2018-07-11] MEDS ORDERED: ROCEPHIN 1 Gm-D5w 50 ml Bag** 1 G/50 ML IVPB IV STA (14:22)
[2018-07-11] MEDS ORDERED: ROCEPHIN 1 Gm-D5w 50 ml Bag** 1 G/50 ML IVPB IV ONE (14:22)
== END 2018-07-11 14:47 | disposition home or self-care (01) ==
LOC: ED 11:53
DX: L03.031 Cellulitis of right toe (principal); E10.9 Type 1 diabetes mellitus without complications; I10 Essential (primary) hypertension; I25.10 Atherosclerotic heart disease of native coronary artery without angina pectoris; M06.9 Rheumatoid arthritis, unspecified; J45.909 Unspecified asthma, uncomplicated; K21.9 Gastro-esophageal reflux disease without esophagitis; Z79.899 Other long term (current) drug therapy; Z95.810 Presence of automatic (implantable) cardiac defibrillator
CPT/HCPCS: 36000; 36415; 73700; 80053; 85025; 87040; 87070; 87077; 87186; 96365; 99284; J0696; A9270-GY

== ENCOUNTER 2021-03-17 09:59 | Emergency (ER) | payer MEDICARE, OTHER ==
[2021-03-17] MEDS ORDERED: TORAdol 30 mg Injection IM ONE (10:14)
[2021-03-17] MEDS ORDERED: TORAdol 30 mg Injection ONE (10:18)
[2021-03-17 10:20] VITALS: O2SAT 98
[2021-03-17 10:51] LABS: Appearance CLEAR (CLEAR); Bilirubin NEGATIVE (NEGATIVE); Blood NEGATIVE Ery/ul (0-5); Glucose NEGATIVE (NEGATIVE); Ketones NEGATIVE (NEGATIVE); Leukocyte Esterase NEGATIVE (NEGATIVE); Mucus SLIGHT /HPF (NEGATIVE); Nitrite NEGATIVE (NEGATIVE); Protein,Urine Dip NEGATIVE (Negative); Specific Gravity 1.013 (1.005-1.025); Urobilinogen NEGATIVE mg/dL (0-1)
--- NOTE | 2021-03-17 11:09 | ERPHSYRPT ---
- History of Present Illness Time Seen by Provider: 03/17/21 10:20 Source: patient Exam Limitations: no limitations Patient Subjective Stated Complaint: Back pain Triage Nursing Assessment: Patient ambulated back to ED and transferred self to bed. Patient A+O X3. Patient's skin pink, warm and dry. Patient complains of left sided mid back pain 8/10 that started a few days ago. Patient states he was seen yesterday by Dr. Verma and had a CT scan and labs. Patient has gallbladder ultrasound scheduled on Monday. Patient complains of constant aching pain 8/10. Physician History: Patient is a 71-year-old male presents to our ED with complaints of left-sided low back pain. Patient has been experiencing this pain for 3 days. Patient followed up with his primary care doctor who ordered a CT abdomen pelvis and urinalysis yesterday. CT abdomen pelvis was essentially nonremarkable. UA was also unremarkable. Patient currently rates his pain 8 out of 10. No trauma. No fever. No change in bowel bladder function. No recent back procedures. Upon arrival patient stated his pain was at his left lower back however on exam patient's pain is actually at the left gluteal region. Palpation to this area reproduces symptoms. Overlying soft tissue intact. No signs of trauma. Patient voices no other complaints or concerns at this time. Timing/Duration: day(s) (3 days ago) Severity: moderate Modifying Factors: Improves With: movement Associated Symptoms: denies symptoms, No nausea, No vomiting, No chest pain, No loss of appetite, No malaise, No weakness Allergies/Adverse Reactions: tizanidine Allergy (Severe, Verified 03/17/21 10:06) Anaphylactic Reaction moxifloxacin [From Avelox] Allergy (Mild, Verified 03/17/21 10:06) Fainting midazolam [From Versed] Adverse Reaction (Verified 03/17/21 10:06) Irregular Heart Beat Penicillins Adverse Reaction (Verified 03/17/21 10:06) Hives spironolactone [From Aldactone] Adverse Reaction (Verified 03/17/21 10:06) Irregular Heart Beat Home Medications: Acetaminophen [Tylenol Extra Strength] 500 mg PO Q6H PRN 10/14/17 [History] Amlodipine Besylate/Benazepril [Lotrel 10-20 mg Capsule] 1 each PO DAILY 10/14/17 [History] Aspirin 81 mg PO DAILY 10/14/17 [History] Carvedilol [Coreg] 25 mg PO BID 10/14/17 [History] Cholecalciferol (Vitamin D3) [Vitamin D] 2,000 unit PO DAILY 10/14/17 [History] Fluticasone/Vilanterol [Breo Ellipta 100-25 Mcg INH] 1 each IH DAILY 10/14/17 [History] Furosemide 20 mg [Lasix 20 mg] 20 mg PO DAILY 10/14/17 [History] Magnesium Oxide 400 mg [Mag-Ox 400] 400 mg PO BID 10/14/17 [History] Multivitamin [Multivitamins] 1 each PO HS 10/14/17 [History] Potassium Chloride 10 Meq Tab* [Klor Con 10 MEQ] 10 meq PO DAILY 10/14/17 [History] Tamsulosin HCl [Flomax] 0.4 mg PO DAILY 10/14/17 [History] Vitamin E 400 unit PO DAILY 10/14/17 [History] Zolpidem Tartrate 10 mg [Ambien 10 MG] 10 mg PO HS 10/14/17 [History] predniSONE [Prednisone] 7.5 mg PO DAILY 10/14/17 [History] Famotidine [Pepcid] 40 mg PO DAILY 07/13/18 [History] Insulin NPH/Reg 70/30 [Novolin 70/30] 40 unit SQ UD 07/13/18 [History] Clopidogrel Bisulfate 75 mg [PLAVIX 75 MG Tablet] 1 tab PO DAILY 11/01/18 [History] Finasteride 5 mg [Proscar 5 MG] 10 mg PO DAILY 07/31/20 [History] Hx Tetanus, Diphtheria Vaccination/Date Given: Yes Hx Influenza Vaccination/Date Given: Yes Hx Pneumococcal Vaccination/Date Given: Yes Immunizations Up to Date: Yes Travel Risk - International Travel Have you traveled outside of the country in past 3 weeks: No - Coronavirus Screening Are you exhibiting any of the following symptoms?: No Close contact with a COVID-19 positive Pt in past 14-21 Days: No - Vaccine Status Have you recieved a Covid-19 vaccination: Yes [employer] Forming: Moderna - Vaccination Dates Date of 2cond Vaccination (if applicable): 06/05/2020 Comment: Booster 02/01/2021 - Review of Systems Constitutional: No Symptoms, No Fever, No Chills Eyes: No Symptoms Ears, Nose, & Throat: No Symptoms Respiratory: No Symptoms, No Cough, No Dyspnea Cardiac: No Symptoms, No Chest Pain, No Edema, No Syncope Abdominal/Gastrointestinal: No Symptoms, No Abdominal Pain, No Nausea, No Vomiting, No Diarrhea Genitourinary Symptoms: No Symptoms, No Dysuria Musculoskeletal: No Symptoms, No Back Pain, No Neck Pain Skin: No Symptoms, No Rash Neurological: No Symptoms, No Dizziness, No Focal Weakness, No Sensory Changes Psychological: No Symptoms Endocrine: No Symptoms Hematologic/Lymphatic: No Symptoms Immunological/Allergic: No Symptoms All Other Systems: Reviewed and Negative - Past Medical History Pertinent Past Medical History: Yes Neurological History: No Pertinent History ENT History: Cataracts Cardiac History: Coronary Artery Disease, Hypertension, Myocardial Infarction ([place]) Respiratory History: Asthma Endocrine Medical History: Diabetes Type II Musculoskeletal History: Osteoarthritis, Rheumatoid Arthritis GI Medical History: GERD, Other History: No Pertinent History Psycho-Social History: No Pertinent History Male Reproductive Disorders: Prostate Problems Other Medical History: PACEMAKER/DEFIBRILLATOR 09/2009. HX [place] 2017. osteomylitis to toe on right foot. bariatric chamber - Past Surgical History Past Surgical History: Yes Neuro Surgical History: No Pertinent History Cardiac: Cardiac Catheterization, Internal Defibrillator, Pacemaker Respiratory: No Pertinent History Gastrointestinal: Other Genitourinary: Other Musculoskeletal: Joint Replacement, Orthopedic Surgery Male Surgical History: No Pertinent History Other Surgical History: CARPAL TUNNEL, CHYLOUS MESENTERY CYST (partial small intestine removed), KIDNEY STONE, RTK, R ankle fx, - Social History Smoking Status: Never smoker Exposure to second hand smoke: No Drug Use: none Patient Lives Alone: No - Nursing Vital Signs Nursing Vital Signs: Initial Vital Signs Temperature 97.5 F 03/17/21 10:07 Pulse Rate 78 03/17/21 10:07 Respiratory Rate 18 03/17/21 10:07 Blood Pressure 156/71 03/17/21 10:07 O2 Sat by Pulse Oximetry 98 03/17/21 10:07 Pain Scale Pain Intensity 6 - Physical Exam General Appearance: no apparent distress, alert Eye Exam: PERRL/EOMI, eyes nml inspection Ears, Nose, Throat Exam: normal ENT inspection, TMs normal, pharynx normal, moist mucous membranes Neck Exam: normal inspection, non-tender, supple, full range of motion Respiratory Exam: normal breath sounds, lungs clear, airway intact, No respiratory distress Cardiovascular Exam: regular rate/rhythm, normal heart sounds, normal peripheral pulses Gastrointestinal/Abdomen Exam: soft, normal bowel sounds, No tenderness, No mass Male Genitalia Exam: normal genitalia Rectal Exam: deferred Back Exam: normal inspection, normal range of motion, No CVA tenderness, No vertebral tenderness Extremity Exam: normal inspection, normal range of motion, pelvis stable, other (Tenderness to palpation at left gluteal region. Flexion of the hip produces pain as well. Physical exam suggestive of hip pathology. X-ray ordered.) Neurologic Exam: alert, oriented x 3, cooperative, normal mood/affect, nml cerebellar function, nml station & gait, sensation nml, No motor deficits Skin Exam: normal color, warm, dry, No rash Lymphatic Exam: No adenopathy SpO2 Interpretation: normal SpO2: 98 O2 Delivery: Room Air - Course Nursing assessment & vital signs reviewed: Yes - Radiology Exams Hip X-ray Interpretation: Teleradiologist Report (Osteopenia and degenerative arthritis of left and right hip. Mild lower lumbar degenerative spondylosis and moderate scattered vascular calcifications. Nonspecific mild distended loops without focal dilation or obstruction.) Ordered Tests: Active Orders 24 hr Category Date Time Status HIP UNI (2V) INCL PEL IF DONE Stat Exams 03/17/21 10:21 Ordered KIDNEY [US] Stat Exams 03/17/21 10:13 Taken UA W/RFX UR CULTURE Stat Lab 03/17/21 10:19 Completed Medication Summary Discontinued Medications Generic Name Dose Route Start Last Admin Trade Name Freq PRN Reason Stop Dose Admin Ketorolac Tromethamine 30 mg 03/17/21 10:14 03/17/21 10:20 Ketorolac Tromethamine 30 Mg/Ml Inj IM 03/17/21 10:15 30 mg STAT ONE Administration Ketorolac Tromethamine Confirm 03/17/21 10:18 Ketorolac Tromethamine 30 Mg/Ml Inj Administered 03/17/21 10:19 Dose 30 mg .ROUTE .STK-MED ONE Lab/Rad Data: Laboratory Results 03/17/21 Range/Units 10:19 Urine Color YELLOW (YELLOW) Urine Appearance CLEAR (CLEAR) Urine pH 5.0 (5-6) Ur Specific [place] 1.013 (1.005-1.025) Urine Protein NEGATIVE (Negative) Urine Ketones NEGATIVE (NEGATIVE) Urine Blood NEGATIVE (0-5) Cade/ul Urine Nitrite NEGATIVE (NEGATIVE) Urine Bilirubin NEGATIVE (NEGATIVE) Urine Urobilinogen NEGATIVE (0-1) mg/dL Ur Leukocyte Esterase NEGATIVE (NEGATIVE) Urine WBC (Auto) NONE (0-5) /HPF Urine RBC (Auto) NONE (0-2) /HPF U Epithel Cells (Auto) NONE (FEW) /HPF Urine Bacteria (Auto) NONE (NEGATIVE) /HPF Urine Mucus (Auto) SLIGHT (NEGATIVE) /HPF Urine Culture Reflexed NO (NO) Urine Glucose NEGATIVE (NEGATIVE) mg/dL - Progress Progress: improved Progress Note: Patient reassessed. Pain improved. Pain appears to be emanating from his left gluteal region. On physical exam manipulation of his left hip reproduces pain. X-ray reveals bilateral hip arthropathy. There is lumbar degenerative spondylosis as well. Moderate scattered vascular calcifications. Patient's pain appears to be coming from left hip pathology. I spoke to Dr. Verma our patient's primary care doctor who is aware. Plan of care discussed with patient. He agrees to follow-up with his primary care doctor within 48 hours for reevaluation. He voices no other complaints or concerns at this time. Urinalysis essentially nonremarkable Portions of this note were created with voice recognition technology. There may be grammatical, spelling, punctuation or sound alike errors 03/17/21 11:41 [id number] analgesics as needed. Patient CT performed yesterday under the order of Dr. Verma does not explain our patients pain. 03/17/21 11:47 Discussed with : Adriana Will see patient in: office Counseled pt/family regarding: lab results, diagnosis, need for follow-up, rad results - Departure Departure Disposition: Home Clinical Impression: Osteopenia, Left hip degenerative arthropathy, Arthritis, lumbar spine, Vascular calcification Condition: Stable Critical Care Time: No Referrals: ANGEL VERMA MD [Primary Care Provider] - Follow up/PCP as directed Additional Instructions: Discharge/Care Plan ELANA JOHNSON was seen on 03/17/21 in the Emergency Room. The patient was counseled regarding Diagnosis,Lab results, Imaging studies, need for follow up and when to return to the Emergency Room. Prescriptions given: Discharge Note I have spoken with the patient and/or caregivers. I have explained the patient's condition, diagnosis and treatment plan based on the information available to me at this time. I have answered the patient's and/or caregiver's questions and addressed any concerns. The patient and/or caregivers have as good understanding of the patient's diagnosis, condition and treatment plan as can be expected at this point. The vital signs have been stable. The patient's condition is stable and appropriate for discharge from the emergency department. The patient will pursue further outpatient evaluation with the primary care physician or other designated or consulting physician as outlined in the discharge instructions. The patient and/or caregivers are agreeable to this plan of care and follow-up instructions have been explained in detail. The patient and/or caregivers have received these instruction. The patient/and or caregivers are aware that any significant change in condition or worsening of symptoms should prompt an immediate return to this or the closest emergency department or call 911.
--- NOTE | 2021-03-17 11:35 | XRAY ---
Indication: Pain. Two-dimensional renal sonogram performed. Comparison: None Both kidneys normal in reniform shape with normal perfusion. Right kidney measures 12.6 x 6.4 x 5.5 cm and the left measures 12.6 x 7.0 x 6.0 cm. No focal solid/cystic mass or hydronephrosis. Cortical medullary differentiation preserved. Urinary bladder is empty. Impression: Negative renal sonogram.
--- NOTE | 2021-03-17 11:35 | XRAY ---
Indication: Left pelvic pain. No known injury. Comparison: None AP pelvis and 2 view left hip demonstrates osteopenia, moderate right/mild left hip degenerative arthropathy, mild lower lumbar degenerative spondylosis, and moderate scattered vascular calcifications. Nonspecific mild distended bowel loops without focal dilatation/obstruction.
[2021-03-17 11:59] VITALS: BP 142/71; PULSE 80
== END 2021-03-17 11:59 | disposition home or self-care (01) ==
LOC: ED 09:59
DX: M47.816 Spondylosis without myelopathy or radiculopathy, lumbar region (principal); M85.80 Other specified disorders of bone density and structure, unspecified site; M16.12 Unilateral primary osteoarthritis, left hip; I70.90 Unspecified atherosclerosis; E11.36 Type 2 diabetes mellitus with diabetic cataract; H26.9 Unspecified cataract; Z79.4 Long term (current) use of insulin; I10 Essential (primary) hypertension; I25.2 Old myocardial infarction; Z95.0 Presence of cardiac pacemaker; Z79.01 Long term (current) use of anticoagulants
CPT/HCPCS: 73502; 76770; 81001; 96372; 99284; J1885

== ENCOUNTER 2022-05-31 05:07 | Emergency (ER) | payer MEDICARE, OTHER ==
--- NOTE | 2022-05-31 05:42 | ERPHSYRPT ---
- History of Present Illness Source: patient, family Exam Limitations: no limitations Patient Subjective Stated Complaint: Pt reports "my sugar dropped to low and my said I wouldn't wake up." The patients reports she woke up at approx 0345 and noticed patient was cold and clammy so she checked his blood sugar and it was 49, ambulance was called. Triage Nursing Assessment: Pt alert and oriented x3. Brought in by EMS and scooted self from EMS cot to ED cot without difficulty. No apparent respiratory distress. Skin warm/dry/pale. Fingerstick glucose 103 at 0515. Physician History: 72 yo wm w altered mental status at home which responded to D50 per EMS. According to EMS, pt was minimally responsive w glucose of 49 and improved rap idly w the D50. Pt awake, alert, and oriented x3 upon ER arrival w normal glucose. He states that he feels fine and denies focal weakness/chest pain/dyspnea/headache/N/V but has had some diarrhea according to his . Cough/coryza denied. Severity: moderate Character of Deficits: none Deficits: no difficulties Baseline/Normal Cognition: alert oriented x 3 Current Cognition: alert oriented x 3 Associated Symptoms: denies symptoms Allergies/Adverse Reactions: tizanidine Allergy (Severe, Verified 05/31/22 05:25) Anaphylactic Reaction moxifloxacin [From Avelox] Allergy (Mild, Verified 05/31/22 05:25) Fainting midazolam [From Versed] Adverse Reaction (Verified 05/31/22 05:25) Irregular Heart Beat Penicillins Adverse Reaction (Verified 05/31/22 05:25) Hives spironolactone [From Aldactone] Adverse Reaction (Verified 05/31/22 05:25) Irregular Heart Beat Home Medications: Acetaminophen [Tylenol Extra Strength] 500 mg PO Q6H PRN 10/14/17 [History] Amlodipine Besylate/Benazepril [Lotrel 10-20 mg Capsule] 1 each PO DAILY 10/14/17 [History] Aspirin 81 mg PO DAILY 10/14/17 [History] Carvedilol [Coreg] 25 mg PO BID 10/14/17 [History] Cholecalciferol (Vitamin D3) [Vitamin D] 2,000 unit PO DAILY 10/14/17 [History] Furosemide 20 mg [Lasix 20 mg] 40 mg PO DAILY 10/14/17 [History] Magnesium Oxide 400 mg [Mag-Ox 400] 400 mg PO BID 10/14/17 [History] Multivitamin [Multivitamins] 1 each PO HS 10/14/17 [History] Potassium Chloride Tab* [Klor Con 10 MEQ] 10 meq PO DAILY 10/14/17 [History] Tamsulosin HCl [Flomax] 0.4 mg PO DAILY 10/14/17 [History] Vitamin E 400 unit PO DAILY 10/14/17 [History] Zolpidem Tartrate 10 mg [Ambien 10 MG] 10 mg PO HS 10/14/17 [History] Famotidine [Pepcid] 40 mg PO DAILY 07/13/18 [History] Insulin NPH/Reg 70/30 [Novolin 70/30] 40 unit SQ UD 07/13/18 [History] Fluticasone/Vilanterol [Breo Ellipta 200-25 Mcg INH] See Rx Instructions .ROUTE .COMPLEX 05/31/22 [History] Gabapentin [Neurontin] 300 mg PO BID 05/31/22 [History] Hx Tetanus, Diphtheria Vaccination/Date Given: No Hx Influenza Vaccination/Date Given: Yes Hx Pneumococcal Vaccination/Date Given: No Travel Risk - International Travel Have you traveled outside of the country in past 3 weeks: No - Coronavirus Screening Symptoms: Vomiting/Diarrhea Close contact with a COVID-19 positive Pt in past 14-21 Days: No - Vaccine Status Have you recieved a Covid-19 vaccination: Yes [employer] Developer [employer]er: Moderna - Vaccination Dates Date of 2cond Vaccination (if applicable): 06/05/2020 Comment: Booster 02/01/2021 - Review of Systems Constitutional: No Symptoms Eyes: No Symptoms Ears, Nose, & Throat: No Symptoms Respiratory: No Symptoms Cardiac: No Symptoms Abdominal/Gastrointestinal: No Symptoms, Diarrhea Genitourinary Symptoms: No Symptoms Musculoskeletal: No Symptoms Skin: No Symptoms Neurological: No Symptoms Psychological: No Symptoms Endocrine: No Symptoms Hematologic/Lymphatic: No Symptoms Immunological/Allergic: No Symptoms - Past Medical History Pertinent Past Medical History: Yes Neurological History: No Pertinent History ENT History: Cataracts Cardiac History: Coronary Artery Disease, Hypertension, Myocardial Infarction ([place]) Respiratory History: Asthma Endocrine Medical History: Diabetes Type II Musculoskeletal History: Osteoarthritis, Rheumatoid Arthritis GI Medical History: GERD, Other History: No Pertinent History Psycho-Social History: No Pertinent History Male Reproductive Disorders: Prostate Problems Other Medical History: PACEMAKER/DEFIBRILLATOR 09/2009. HX [place] 2018. osteomylitis to toe on right foot. bariatric chamber. 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), KIDNEY STONE, RTK, R ankle fx, - Social History Smoking Status: Never smoker Exposure to second hand smoke: No Drug Use: none Patient Lives Alone: No Significant Family History: no pertinent family hx - Nursing Vital Signs Nursing Vital Signs: Initial Vital Signs Temperature 96.4 F 05/31/22 05:08 Pulse Rate 96 H 05/31/22 05:08 Respiratory Rate 15 05/31/22 05:08 Blood Pressure 167/78 05/31/22 05:08 O2 Sat by Pulse Oximetry 99 05/31/22 05:08 Pain Scale Pain Intensity 0 Hypertensive - Margaret Coma Scale Best Eye Response (Tran): (4) open spontaneously Best Verbal Response (Tran): (5) oriented Best Motor Response (Tran): (6) obeys commands Margaret Total: 15 - Physical Exam General Appearance: no apparent distress Eye Exam: bilateral eye: normal inspection, PERRL, EOMI Ears, Nose, Throat Exam: normal ENT inspection, TMs normal, pharynx normal, moist mucous membranes Neck Exam: normal inspection, non-tender, supple, full range of motion, No meningismus, No mass, No Brudzinski, No Kernig's Respiratory: normal breath sounds, lungs clear, airway intact Cardiovascular: regular rate/rhythm, normal heart sounds, normal peripheral pulses, No murmur Gastrointestinal: soft, normal bowel sounds, No tenderness Back Exam: normal inspection, normal range of motion Extremity Exam: normal inspection, normal range of motion Peripheral Pulses: carotid (R): 2+, carotid (L): 2+ Mental Status: alert, oriented x 3, 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1-5.6) x10^6/uL Hgb (12.5-18.0) g/dL Hct (42-50) % MCV (78-100) fL MCH (26-32) pg MCHC (32-36) g/dL RDW (11.5-14.0) % Plt Count (150-450) x10^3/uL MPV (7.5-11.0) fL Gran % (36.0-66.0) % Immature Gran % (Auto) (0.00-0.4) % Nucleat RBC Rel Count (0.00-0.1) % Eos # (Auto) (0-0.5) x10^3/uL Immature Gran # (Auto) (0.00-0.03) x10^3u/L Absolute Lymphs (auto) (1.0-4.6) x10^3/uL Absolute Monos (auto) (0.0-1.3) x10^3/uL Absolute Nucleated RBC (0.00-0.01) x10^3u/L Lymphocytes % (24.0-44.0) % Monocytes % (0.0-12.0) % Eosinophils % (0.00-5.0) % Basophils % (0.0-0.4) % Absolute Granulocytes (1.4-6.9) x10^3/uL Basophils # (0-0.4) x10^3/uL Sodium (137-145) mmol/L Potassium (3.5-5.1) mmol/L Chloride (98-107) mmol/L Carbon Dioxide (22-30) mmol/L Anion Gap (5-15) MEQ/L BUN (9-20) mg/dL Creatinine (0.66-1.25) mg/dL Estimated GFR ML/MIN Glucose (74-106) mg/dL POC Glucometer 82 (74 to 106) mg/dL Calcium (8.4-10.2) mg/dL Total Bilirubin (0.2-1.3) mg/dL AST (17-59) U/L ALT (0-50) U/L Alkaline Phosphatase (38-126) U/L Troponin I (0.000-0.034) ng/mL Serum Total Protein (6.3-8.2) g/dL Albumin (3.5-5.0) g/dL Urine Color Yellow (Yellow) Urine Appearance Clear (Clear) Urine pH 5.5 (4.6-8.0) Ur Specific [place] 1.025 (1.005-1.030) Urine Protein Trace A (Negative) Urine Glucose (UA) Negative (Negative) mg/dL Urine Ketones Trace A (Negative) Urine Blood Negative (Negative) Urine Nitrite Negative (Negative) Urine Bilirubin Negative (Negative) Urine Urobilinogen 0.2 (0.2) mg/dL Ur Leukocyte Esterase Negative (Negative) U Hyaline Cast (Auto) NONE SEEN (0-2) /LPF Urine Microscopic RBC 0-2 (0-5) /HPF Urine Microscopic WBC 0-2 (0-5) /HPF Ur Epithelial Cells None Seen (None Seen) /HPF Urine Bacteria None Seen (None Seen) /HPF Urine Culture Reflexed NO (NO) Influenza Type A Ag NEGATIVE (NEGATIVE) Influenza Type B Ag NEGATIVE (NEGATIVE) RSV (PCR) NEGATIVE (Negative) SARS-CoV-2 (PCR) NEGATIVE (NEGATIVE) 05/31/22 05/31/22 05/31/22 Range/Units 05:40 05:40 05:40 WBC 6.0 (4.0-10.5) x10^3/uL RBC 4.62 (4.1-5.6) x10^6/uL Hgb 12.5 (12.5-18.0) g/dL Hct 42.0 (42-50) % MCV 90.9 (78-100) fL MCH 27.1 (26-32) pg MCHC 29.8 L (32-36) g/dL RDW 13.5 (11.5-14.0) % Plt Count 195 (150-450) x10^3/uL MPV 9.5 (7.5-11.0) fL Gran % 71.8 H (36.0-66.0) % Immature Gran % (Auto) 0.3 (0.00-0.4) % Nucleat RBC Rel Count 0.0 (0.00-0.1) % Eos # (Auto) 0.08 (0-0.5) x10^3/uL Immature Gran # (Auto) 0.02 (0.00-0.03) x10^3u/L Absolute Lymphs (auto) 1.10 (1.0-4.6) x10^3/uL Absolute Monos (auto) 0.48 (0.0-1.3) x10^3/uL Absolute Nucleated RBC 0.00 (0.00-0.01) x10^3u/L Lymphocytes % 18.4 L (24.0-44.0) % Monocytes % 8.0 (0.0-12.0) % Eosinophils % 1.3 (0.00-5.0) % Basophils % 0.2 (0.0-0.4) % Absolute Granulocytes 4.29 (1.4-6.9) x10^3/uL Basophils # 0.01 (0-0.4) x10^3/uL Sodium 139 (137-145) mmol/L Potassium 3.5 (3.5-5.1) mmol/L Chloride 102 (98-107) mmol/L Carbon Dioxide 28 (22-30) mmol/L Anion Gap 12.2 (5-15) MEQ/L BUN 18 (9-20) mg/dL Creatinine 0.66 (0.66-1.25) mg/dL Estimated GFR > 60.0 ML/MIN Glucose 99 (74-106) mg/dL POC Glucometer (74 to 106) mg/dL Calcium 8.2 L (8.4-10.2) mg/dL Total Bilirubin 0.40 (0.2-1.3) mg/dL AST 28 (17-59) U/L ALT 19 (0-50) U/L Alkaline Phosphatase 50 (38-126) U/L Troponin I < 0.012 (0.000-0.034) ng/mL Serum Total Protein 6.6 (6.3-8.2) g/dL Albumin 4.0 (3.5-5.0) g/dL Urine Color (Yellow) Urine Appearance (Clear) Urine pH (4.6-8.0) Ur Specific [place] (1.005-1.030) Urine Protein (Negative) Urine Glucose (UA) (Negative) mg/dL Urine Ketones (Negative) Urine Blood (Negative) Urine Nitrite (Negative) Urine Bilirubin (Negative) Urine Urobilinogen (0.2) mg/dL Ur Leukocyte Esterase (Negative) U Hyaline Cast (Auto) (0-2) /LPF Urine Microscopic RBC (0-5) /HPF Urine Microscopic WBC (0-5) /HPF Ur Epithelial Cells (None Seen) /HPF Urine Bacteria (None Seen) /HPF Urine Culture Reflexed (NO) Influenza Type A Ag (NEGATIVE) Influenza Type B Ag (NEGATIVE) RSV (PCR) (Negative) SARS-CoV-2 (PCR) (NEGATIVE) - Progress Progress: improved Progress Note: 05/31/22 05:33 Nursing note and vital signs reviewed No food or housing insecurities noted Pt is a full code Additional history per /son 05/31/22 07:00 No focal weakness during entire stay and pt alert and oriented x 3 during entire stay All labs reviewed and shared w pt/ No hypoglycemia while in ER 06/01/22 23:03 Counseled pt/family regarding: lab results, diagnosis, need for follow-up - Departure Departure Disposition: Home Clinical Impression: Hypoglycemia Condition: Stable Critical Care Time: No Referrals: ANGEL VERMA MD [Primary Care Provider] - Follow up/PCP as directed Instructions: Low Blood Sugar, Adult (DC) Additional Instructions: Follow up with your family MD in 1-2 days Eat a good breakfast Inject only half of your insulin dose this morning Return to ER as needed
[2022-05-31 05:59] LABS: Absolute Neutrophil Ct (ANC) 4.29 x10^3/uL (1.4-6.9); BASOPHIL % 0.2 % (0.0-0.4); Basophil (Absolute #) 0.01 x10^3/uL (0-0.4); Eosinophil % 1.3 % (0.00-5.0); Eosinophil (Absolute #) 0.08 x10^3/uL (0-0.5); Hemoglobin 12.5 g/dL (12.5-18.0); IMMATURE GRAN # 0.02 x10^3u/L (0.00-0.03); IMMATURE GRAN % 0.3 % (0.00-0.4); Lymphocytes % 18.4 % (24.0-44.0); Mean Cell Volume 90.9 fL (78-100); Mean Corpuscular Hemoglobin 27.1 pg (26-32); Mean Corpuscular Hgb Concent. 29.8 g/dL (32-36); Mean Platelet Volume 9.5 fL (7.5-11.0); Monocyte (Absolute #) 0.48 x10^3/uL (0.0-1.3); Neutrophil % 71.8 % (36.0-66.0); Platelet Count 195 x10^3/uL (150-450); Red Blood Count 4.62 x10^6/uL (4.1-5.6); Red Cell Distribution Width 13.5 % (11.5-14.0)
[2022-05-31 06:15] LABS: ALKALINE PHOSPHATASE 50 U/L (38-126); ANION GAP 12.2 MEQ/L (5-15); BLOOD UREA NITROGEN 18 mg/dL (9-20); CHLORIDE 102 mmol/L (98-107); Calcium 8.2 mg/dL (8.4-10.2); Carbon Dioxide 28 mmol/L (22-30); Creatinine 1 0.66 mg/dL (0.66-1.25); EST GLOMERULAR FILTRATION RATE > 60.0 ML/MIN; Glucose 99 mg/dL (74-106); Potassium 3.5 mmol/L (3.5-5.1); SGOT/AST 28 U/L (17-59); SGPT/ALT 19 U/L (0-50); SODIUM 139 mmol/L (137-145); Total Protein 6.6 g/dL (6.3-8.2)
[2022-05-31 06:39] LABS: INFLUENZA A NEGATIVE (NEGATIVE); INFLUENZA B NEGATIVE (NEGATIVE); RESPIRATORY SYNCTIAL VIRUS NEGATIVE (Negative); SARS-CoV-2 Xpert Express NEGATIVE (NEGATIVE)
[2022-05-31 06:54] LABS: Appearance Clear (Clear); Bacteria None Seen /HPF (None Seen); Bilirubin Negative (Negative); Blood Negative (Negative); Epithelial Cells None Seen /HPF (None Seen); Glucose, Urine Negative (Negative); Hyaline Casts NONE SEEN /LPF (0-2); Ketones Trace (Negative); Leukocyte Esterase Negative (Negative); Nitrite Negative (Negative); Ph 5.5 (4.6-8.0); Protein,Urine Dip Trace (Negative); RBC 0-2 /HPF (0-5); Specific Gravity 1.025 (1.005-1.030); Urobilinogen 0.2 mg/dL (0.2); WBC 0-2 /HPF (0-5)
[2022-05-31 06:55] LABS: ADD URINE CULTURE? NO (NO)
[2022-05-31 07:05] VITALS: BP 149/66
[2022-05-31 07:06] VITALS: PULSE 74
[2022-06-01 23:04] VITALS: O2SAT 99
== END 2022-05-31 07:09 | disposition home or self-care (01) ==
LOC: ED 05:07
DX: E11.649 Type 2 diabetes mellitus with hypoglycemia without coma (principal); I10 Essential (primary) hypertension; Z79.4 Long term (current) use of insulin; Z79.899 Other long term (current) drug therapy; Z20.828 Contact with and (suspected) exposure to other viral communicable diseases
CPT/HCPCS: 0241U; 36000; 36415; 80053; 81001; 82947; 84484; 85025; 93005; 99284

== ENCOUNTER 2024-12-17 21:47 | Inpatient (IN) | payer MEDICARE, OTHER ==
--- NOTE | 2024-12-17 21:51 | ERPHSYRPT ---
- History of Present Illness Time Seen by Provider: 12/17/24 21:50 Source: patient Exam Limitations: no limitations Physician History: This is an obese 74-year-old white male patient arrives by private vehicle and is a patient of . Patient has multiple medical problems including coronary artery disease, hypertension, asthma, prostate issues and is an insulin-dependent diabetic. He also has a pacemaker defibrillator in place. Patient has multiple complaints today. Patient states he was doing fine till just after dinner when he noticed pain in his right lower leg when ambulating. There is also some swelling present. He did not fall or have any trauma to the area. He also had a mild cough and was short of breath. Patient is not on any anticoagulation therapy. On arrival to the emergency department patient has a fever of 100.6 F. He has very mild, nonradiating substernal central achiness. Patient did undergo a twelve-lead EKG on 05/31/2022. I interpreted that twelve- lead EKG heart rate 61 bpm and normal sinus rhythm pattern with a QTc of 469 and no acute ischemia. Timing/Duration: today Severity: moderate Associated Symptoms: shortness of breath, cough, chest pain, fever, weakness, No nausea, No vomiting, No abdominal pain Allergies/Adverse Reactions: tizanidine Allergy (Severe, Verified 12/17/24 22:11) Anaphylactic Reaction moxifloxacin [From Avelox] Allergy (Mild, Verified 12/17/24 22:11) Fainting midazolam [From Versed] Adverse Reaction (Verified 12/17/24 22:11) Irregular Heart Beat Penicillins Adverse Reaction (Verified 12/17/24 22:11) Hives spironolactone [From Aldactone] Adverse Reaction (Verified 12/17/24 22:11) Irregular Heart Beat Home Medications: Acetaminophen [Tylenol Extra Strength] 500 mg PO Q6H PRN 10/14/17 [History] Amlodipine Besylate/Benazepril [Lotrel 10-20 mg Capsule] 1 each PO DAILY 10/14/17 [History] Aspirin 81 mg PO DAILY 10/14/17 [History] Cholecalciferol (Vitamin D3) [Vitamin D] 2,000 unit PO DAILY 10/14/17 [History] Furosemide 20 mg [Lasix 20 mg] 40 mg PO DAILY 10/14/17 [History] Magnesium Oxide 400 mg [Mag-Ox 400] 400 mg PO BID 10/14/17 [History] Multivitamin [Multivitamins] 1 each PO HS 10/14/17 [History] Tamsulosin HCl [Flomax] 0.4 mg PO HS 10/14/17 [History] Vitamin E 400 unit PO DAILY 10/14/17 [History] Zolpidem Tartrate 10 mg [Ambien 10 MG] 10 mg PO HS 10/14/17 [History] carvediloL [Coreg] 25 mg PO BID 10/14/17 [History] Famotidine [Pepcid] 40 mg PO DAILY 07/13/18 [History] Insulin NPH/Reg 70/30 [Novolin 70/30] 40 unit SQ UD 07/13/18 [History] Fluticasone/Vilanterol [Breo Ellipta 200-25 Mcg INH] See Rx Instructions .ROUTE .COMPLEX 05/31/22 [History] Gabapentin [Neurontin] 300 mg PO BID 05/31/22 [History] Eplerenone 25 mg PO DAILY 12/17/24 [History] Finasteride 5 mg [Proscar 5 MG] 5 mg PO DAILY 12/17/24 [History] Folic Acid 1 mg [Folate 1 mg] 1 mg PO DAILY 12/17/24 [History] Methotrexate Sodium 2.5 mg [Trexall 2.5 mg] 2.5 mg PO UD 12/17/24 [History] Prednisone 10 mg [Deltasone 10 mg] 5 mg PO DAILY 12/17/24 [History] Tocilizumab [Actemra Actpen] 1 mg SQ WEEKLY 12/17/24 [History] Hx Tetanus, Diphtheria Vaccination/Date Given: No Hx Influenza Vaccination/Date Given: Yes Hx Pneumococcal Vaccination/Date Given: No Travel Risk - International Travel Have you traveled outside of the country in past 3 weeks: No - Emerging Infectious Disease Are you exhibiting symptoms associated with any current EIDs: No Symptoms: Cough: New Onset, Fever, Shortness of Breath - Review of Systems Constitutional: Fever Eyes: No Symptoms Ears, Nose, & Throat: No Symptoms Respiratory: Cough Cardiac: Chest Pain Abdominal/Gastrointestinal: No Symptoms Genitourinary Symptoms: No Symptoms Musculoskeletal: No Symptoms Skin: No Symptoms Neurological: No Symptoms Psychological: No Symptoms Endocrine: No Symptoms Hematologic/Lymphatic: No Symptoms Immunological/Allergic: No Symptoms All Other Systems: Reviewed and Negative - Past Medical History Cardiac History: Hypertension Respiratory History: Asthma Endocrine Medical History: No Pertinent History Musculoskeletal History: No Pertinent History GI Medical History: No Pertinent History History: No Pertinent History Psycho-Social History: No Pertinent History Male Reproductive Disorders: No Pertinent History Other Medical History: PMH: PSH: - Past Surgical History Past Surgical History: Yes Neuro Surgical History: No Pertinent History Cardiac: Cardiac Catheterization, Internal Defibrillator, Pacemaker Respiratory: No Pertinent History Gastrointestinal: Other Genitourinary: Other Musculoskeletal: Joint Replacement, Orthopedic Surgery Male Surgical History: No Pertinent History Other Surgical History: CARPAL TUNNEL, CHYLOUS MESENTERY CYST (partial small intestine removed), KIDNEY STONE, RTK, R ankle fx, Significant Family History: no pertinent family hx - Social History Smoking Status: Never smoker Exposure to second hand smoke: No Drug Use: none Patient Lives Alone: No - Nursing Vital Signs Nursing Vital Signs: Initial Vital Signs Temperature 100.6 F 12/17/24 21:49 Pulse Rate 112 H 12/17/24 21:49 Respiratory Rate 30 H 12/17/24 21:49 Blood Pressure 178/77 12/17/24 21:49 O2 Sat by Pulse Oximetry 93 L 12/17/24 21:49 Pain Scale Pain Intensity 8 - Physical Exam General Appearance: mild distress, alert, anxiety, obese Eye Exam: PERRL/EOMI, eyes nml inspection Ears, Nose, Throat Exam: normal ENT inspection, moist mucous membranes Neck Exam: normal inspection, non-tender, supple, full range of motion Respiratory Exam: normal breath sounds, lungs clear, airway intact, No chest tenderness, No respiratory distress, No wheezing Cardiovascular Exam: tachycardia Gastrointestinal/Abdomen Exam: soft, normal bowel sounds, No tenderness Rectal Exam: not done Back Exam: normal inspection, normal range of motion, No CVA tenderness, No vertebral tenderness Extremity Exam: normal range of motion, pelvis stable, swelling (Right lower extremity below the knee mid tibia distally and laterally), tenderness (Right lower leg mid tibia level distally and laterally), No deformities Neurologic Exam: alert, oriented x 3, cooperative, choir accompanist II-XII nml as tested, normal mood/affect, sensation nml Skin Exam: normal color, warm, dry Lymphatic Exam: No adenopathy SpO2 Interpretation: normal O2 Delivery: Room Air - Course Nursing assessment & vital signs reviewed: Yes EKG Interpreted by Me: RATE (112), Sinus Tach, NORMAL AXIS, NORMAL INTERVALS, NORMAL QRS, Non-specific ST Changes, Other (QTc is 447. No acute ischemia on today's twelve-lead EKG.) Ordered Tests: Active Orders 24 hr Category Date Time Status Mechanical Maintenance Engineer STAT Care 12/17/24 22:12 Active EKG-ER Only STAT Care 12/17/24 22:12 Active IV Insertion STAT Care 12/17/24 22:12 Active Pulse Oximetry (ED) STAT Care 12/17/24 22:12 Active CHEST WITH CONTRAST [CT] Stat Exams 12/17/24 23:30 Completed VENOUS UNILAT/LIMITED EXTREMIT [US] Stat Exams 12/17/24 23:31 Taken BLOOD CULTURE Stat Lab 12/17/24 22:32 Received CBC W DIFF Stat Lab 12/17/24 22:20 Completed CMP Stat Lab 12/17/24 22:20 Completed D-DIMER QUANTITATIVE Stat Lab 12/17/24 22:20 Completed Lactic Acid Stat Lab 12/17/24 22:15 Completed Lactic Acid Stat Lab 12/18/24 00:21 Received MAGNESIUM Stat Lab 12/17/24 22:20 Completed MONO SCREEN Stat Lab 12/17/24 22:32 Completed Manual Differential NC Stat Lab 12/17/24 22:20 Completed NT PRO BNPII Stat Lab 12/17/24 22:20 Completed PROCALCITONIN Stat Lab 12/17/24 22:15 Completed PROTIME WITH INR Stat Lab 12/17/24 22:20 Completed PTT Stat Lab 12/17/24 22:20 Completed TROPONIN Q4H Lab 12/17/24 22:32 Completed TROPONIN Q4H Lab 12/18/24 02:15 Ordered TROPONIN Q4H Lab 12/18/24 06:15 Ordered UA W/RFX UR CULTURE Stat Lab 12/17/24 23:57 Completed Medication Summary Generic Name Dose Route Start Last Admin Trade Name Freq PRN Reason Stop Dose Admin Sodium Chloride 1,000 mls @ 100 mls/hr 12/17/24 22:15 12/18/24 01:32 Sodium Chloride 0.9% 1000 Ml IV 01/16/25 22:14 999 mls/hr .Q10H DL Infusion Discontinued Medications Generic Name Dose Route Start Last Admin Trade Name Ellen PRN Reason Stop Dose Admin Acetaminophen 650 mg 12/17/24 22:39 12/17/24 22:46 Acetaminophen 325 Mg Tablet PO 12/17/24 22:40 650 mg STAT ONE Administration Acetaminophen Confirm 12/17/24 22:46 Acetaminophen 325 Mg Tablet Administered 12/17/24 22:47 Dose 650 mg .ROUTE .STK-MED ONE Hydrocodone Bitart/Acetaminophen 1 tab 12/17/24 23:30 12/17/24 23:58 Hydrocodone/Apap 5/325 1 Tab Tablet PO 12/17/24 23:31 1 tab STAT ONE Administration Hydrocodone Bitart/Acetaminophen Confirm 12/17/24 23:58 Hydrocodone/Apap 5/325 1 Tab Tablet Administered 12/17/24 23:59 Dose 1 tab .ROUTE .STK-MED ONE Morphine Sulfate 2 mg 12/18/24 01:16 12/18/24 01:19 Morphine Sulfate 2 Mg/Ml Inj IV 12/18/24 01:17 2 mg STAT ONE Administration Morphine Sulfate Confirm 12/18/24 01:18 Morphine Sulfate 2 Mg/Ml Inj Administered 12/18/24 01:19 Dose 2 mg .ROUTE .STK-MED ONE Ondansetron HCl 4 mg 12/18/24 01:16 12/18/24 01:19 Ondansetron Hcl 4 Mg/2 Ml Vial IV 12/18/24 01:17 4 mg STAT ONE Administration Ondansetron HCl Confirm 12/18/24 01:18 Ondansetron Hcl 4 Mg/2 Ml Vial Administered 12/18/24 01:19 Dose 4 mg .ROUTE .STK-MED ONE Lab/Rad Data: Laboratory Result Diagrams 12/17/24 22:20 12/17/24 22:20 Laboratory Results 12/17/24 12/17/24 12/17/24 Range/Units 23:57 22:32 22:32 WBC (4.23-9.07) x10^3/uL RBC (4.63-6.08) x10^6/uL Hgb (13.7-17.5) g/dL Hct (40.1-51.0) % MCV (79.0-92.2) fL MCH (25.7-32.2) pg MCHC (32.3-36.5) g/dL RDW (11.6-14.4) % Plt Count (163-337) x10^3/uL MPV (9.4-12.4) fL Segmented Neutrophils (34.0-67.9) % Band Neutrophils (0.0-2.0) % Lymphocytes (Manual) (21.8-53.1) % Monocytes (Manual) (5.3-12.2) % Eosinophils (Manual) (0.8-7.0) % Platelet Estimate (NORMAL) RBC Morphology Macrocytosis PT (9.4-12.5) SECONDS INR (0.8-3.0) APTT (25.1-36.5) SECONDS D-Dimer (0.0-0.50) mg/L Sodium (135-145) mmol/L Potassium (3.5-5.1) mmol/L Chloride (98-107) mmol/L Carbon Dioxide (22-30) mmol/L Anion Gap (5-15) MEQ/L BUN (9-20) mg/dL Creatinine (0.66-1.25) mg/dL Estimated GFR ML/MIN Glucose (74-106) mg/dL Lactic Acid (0.4-2.0) Calcium (8.4-10.2) mg/dL Magnesium (1.6-2.3) mg/dL Total Bilirubin (0.2-1.3) mg/dL AST (17-59) U/L ALT (0-50) U/L Alkaline Phosphatase (38-126) U/L Troponin I (0.000-0.033) ng/mL NT-Pro-B Natriuret Pep (<300) pg/mL Serum Total Protein (6.3-8.2) g/dL Albumin (3.5-5.0) g/dL Procalcitonin (0.030-0.080) ng/mL Urine Color Yellow (Yellow) Urine Appearance Clear (Clear) Urine pH 7.5 (4.6-8.0) Ur Specific [place] 1.020 (1.005-1.030) Urine Protein Negative (Negative) Urine Glucose (UA) Negative (Negative) mg/dL Urine Ketones Trace A (Negative) Urine Blood Negative (Negative) Urine Nitrite Negative (Negative) Urine Bilirubin Negative (Negative) Urine Urobilinogen 1.0 A (0.2) mg/dL Ur Leukocyte Esterase Negative (Negative) U Hyaline Cast (Auto) 3-5 A (0-2) /LPF Urine Microscopic RBC 0-2 (0-5) /HPF Urine Microscopic WBC 0-2 (0-5) /HPF Ur Epithelial Cells None Seen (None Seen) /HPF Urine Bacteria None Seen (None Seen) /HPF Urine Culture Reflexed NO (NO) Monoscreen NEGATIVE (NEGATIVE) Influenza Type A Ag NEGATIVE (NEGATIVE) Influenza Type B Ag NEGATIVE (NEGATIVE) RSV (PCR) NEGATIVE (NEGATIVE) SARS-CoV-2 (PCR) NEGATIVE (NEGATIVE) 12/17/24 12/17/24 12/17/24 Range/Units 22:32 22:20 22:20 WBC (4.23-9.07) x10^3/uL RBC (4.63-6.08) x10^6/uL Hgb (13.7-17.5) g/dL Hct (40.1-51.0) % MCV (79.0-92.2) fL MCH (25.7-32.2) pg MCHC (32.3-36.5) g/dL RDW (11.6-14.4) % Plt Count (163-337) x10^3/uL MPV (9.4-12.4) fL Segmented Neutrophils (34.0-67.9) % Band Neutrophils (0.0-2.0) % Lymphocytes (Manual) (21.8-53.1) % Monocytes (Manual) (5.3-12.2) % Eosinophils (Manual) (0.8-7.0) % Platelet Estimate (NORMAL) RBC Morphology Macrocytosis PT 11.1 (9.4-12.5) SECONDS INR 1.02 (0.8-3.0) APTT 21.1 L (25.1-36.5) SECONDS D-Dimer 4.34 H* (0.0-0.50) mg/L Sodium 136 (135-145) mmol/L Potassium 4.6 (3.5-5.1) mmol/L Chloride 97 L (98-107) mmol/L Carbon Dioxide 28 (22-30) mmol/L Anion Gap 14.3 (5-15) MEQ/L BUN 33 H (9-20) mg/dL Creatinine 1.22 (0.66-1.25) mg/dL Estimated GFR 61.8 ML/MIN Glucose 145 H (74-106) mg/dL Lactic Acid (0.4-2.0) Calcium 9.1 (8.4-10.2) mg/dL Magnesium 2.2 (1.6-2.3) mg/dL Total Bilirubin 0.70 (0.2-1.3) mg/dL AST 31 (17-59) U/L ALT 20 (0-50) U/L Alkaline Phosphatase 52 (38-126) U/L Troponin I 0.013 (0.000-0.033) ng/mL NT-Pro-B Natriuret Pep 194 (<300) pg/mL Serum Total Protein 6.7 (6.3-8.2) g/dL Albumin 4.6 (3.5-5.0) g/dL Procalcitonin (0.030-0.080) ng/mL Urine Color (Yellow) Urine Appearance (Clear) Urine pH (4.6-8.0) Ur Specific [place] (1.005-1.030) Urine Protein (Negative) Urine Glucose (UA) (Negative) mg/dL Urine Ketones (Negative) Urine Blood (Negative) Urine Nitrite (Negative) Urine Bilirubin (Negative) Urine Urobilinogen (0.2) mg/dL Ur Leukocyte Esterase (Negative) U Hyaline Cast (Auto) (0-2) /LPF Urine Microscopic RBC (0-5) /HPF Urine Microscopic WBC (0-5) /HPF Ur Epithelial Cells (None Seen) /HPF Urine Bacteria (None Seen) /HPF Urine Culture Reflexed (NO) Monoscreen (NEGATIVE) Influenza Type A Ag (NEGATIVE) Influenza Type B Ag (NEGATIVE) RSV (PCR) (NEGATIVE) SARS-CoV-2 (PCR) (NEGATIVE) 12/17/24 12/17/24 12/17/24 Range/Units 22:20 22:15 22:15 WBC 14.1 H (4.23-9.07) x10^3/uL RBC 4.02 L (4.63-6.08) x10^6/uL Hgb 12.6 L (13.7-17.5) g/dL Hct 38.7 L (40.1-51.0) % MCV 96.3 H (79.0-92.2) fL MCH 31.3 (25.7-32.2) pg MCHC 32.6 (32.3-36.5) g/dL RDW 13.2 (11.6-14.4) % Plt Count 159 L (163-337) x10^3/uL MPV 10.1 (9.4-12.4) fL Segmented Neutrophils 84 H (34.0-67.9) % Band Neutrophils 4 H (0.0-2.0) % Lymphocytes (Manual) 9 L (21.8-53.1) % Monocytes (Manual) 1 L (5.3-12.2) % Eosinophils (Manual) 2 (0.8-7.0) % Platelet Estimate NORMAL (NORMAL) RBC Morphology ABNORMAL Macrocytosis 1+ PT (9.4-12.5) SECONDS INR (0.8-3.0) APTT (25.1-36.5) SECONDS D-Dimer (0.0-0.50) mg/L Sodium (135-145) mmol/L Potassium (3.5-5.1) mmol/L Chloride (98-107) mmol/L Carbon Dioxide (22-30) mmol/L Anion Gap (5-15) MEQ/L BUN (9-20) mg/dL Creatinine (0.66-1.25) mg/dL Estimated GFR ML/MIN Glucose (74-106) mg/dL Lactic Acid 1.9 (0.4-2.0) Calcium (8.4-10.2) mg/dL Magnesium (1.6-2.3) mg/dL Total Bilirubin (0.2-1.3) mg/dL AST (17-59) U/L ALT (0-50) U/L Alkaline Phosphatase (38-126) U/L Troponin I (0.000-0.033) ng/mL NT-Pro-B Natriuret Pep (<300) pg/mL Serum Total Protein (6.3-8.2) g/dL Albumin (3.5-5.0) g/dL Procalcitonin 0.399 H (0.030-0.080) ng/mL Urine Color (Yellow) Urine Appearance (Clear) Urine pH (4.6-8.0) Ur Specific [place] (1.005-1.030) Urine Protein (Negative) Urine Glucose (UA) (Negative) mg/dL Urine Ketones (Negative) Urine Blood (Negative) Urine Nitrite (Negative) Urine Bilirubin (Negative) Urine Urobilinogen (0.2) mg/dL Ur Leukocyte Esterase (Negative) U Hyaline Cast (Auto) (0-2) /LPF Urine Microscopic RBC (0-5) /HPF Urine Microscopic WBC (0-5) /HPF Ur Epithelial Cells (None Seen) /HPF Urine Bacteria (None Seen) /HPF Urine Culture Reflexed (NO) Monoscreen (NEGATIVE) Influenza Type A Ag (NEGATIVE) Influenza Type B Ag (NEGATIVE) RSV (PCR) (NEGATIVE) SARS-CoV-2 (PCR) (NEGATIVE) - Progress Progress: improved, pain not gone completely, re-examined Progress Note: 12/17/24 23:03 My medical decision making and the assignment of high complexity to this patient's medical issue today is based on review of the patient's past medical history, review patient medication list, reviewed patient drug allergy list, history present with some physical findings on examination. The workup in this patient includes placement of intravenous line, blood cultures x 2, CBC, CMP, lactic acid level, procalcitonin level, troponin level, D-dimer level, twelve- lead EKG, urinalysis, viral swabs, monotest Differential diagnosis includes but is not limited to sepsis, DVT, pulmonary embolism, pneumonia, myocardial infarction, arrhythmia, urinary tract infection, electrolyte abnormalities 12/18/24 01:36 I interpreted the patient's laboratory data results. Based on the laboratory data results the patient has an elevated procalcitonin level and a D-dimer level of 4.34 which is elevated. Patient's urinalysis shows no infection. Patient's viral swabs and monotest are negative. we ordered a CT scan of the chest with contrast and after review of the patient's kidney function and BNP level, we opened up his fluids as a bolus. Will repeat the bolus and then run the fluid on the floor and to 100 mL/h. The CT scan of the chest with contrast was interpreted by the radiologist and I reviewed the impression. Impression states no acute intrathoracic abnormality. No evidence of pulmonary embolus. The venous Doppler of the right lower extremity was performed by the clinical unit coordinator. The clinical unit coordinator provided me with the preliminary report which is negative for DVT. I have reviewed the results with the patient and his family. I spoke spoke with telehospitalist, Dr. Shamar Dumont. I reviewed the patient history, presenting complaint, workup results and the response of the patient's condition to our therapy and intervention. We will place this patient on telemetry and provide him with intravenous fluid, intravenous antibiotics (meropenem), repeat labs and intravenous pain control. Medical Desision Making - Independent Historian Additional History obtained from: Family - Diagnostic Testing Diagnostic test were ordered, analyzed, and reviewed by me: Yes Radiological Interpretation: Reviewed by me, Teleradiologist Report - Risk of complications The pt has a high risk of morbidity or mortality based on: Decision regarding hospitilization or escalation of hosp level of care - Departure Departure Disposition: Observation Clinical Impression: Sepsis, Cellulitis of right leg Condition: Fair Critical Care Time: Yes Critical Care Time(excluding separately billable procedures): Critical 30-74 mins (65) Referrals: ANGEL VERMA MD [Primary Care Provider, INTERNAL MEDICINE] - Follow up/PCP as directed
[2024-12-17 22:42] LABS: Hematocrit 38.7 % (40.1-51.0); Hemoglobin 12.6 g/dL (13.7-17.5); Mean Corpuscular Hemoglobin 31.3 pg (25.7-32.2); Mean Corpuscular Hgb Concent. 32.6 g/dL (32.3-36.5); Platelet Count 159 x10^3/uL (163-337); Red Blood Count 4.02 x10^6/uL (4.63-6.08); White Blood Count 14.1 x10^3/uL (4.23-9.07)
[2024-12-17] MEDS ORDERED: TYLENOL 325 MG ONE (22:46)
[2024-12-17] MEDS: TYLENOL 325 MG PO ONE (22:46)
[2024-12-17 23:05] LABS: INR 1.02 (0.8-3.0); PROTIME 11.1 SECONDS (9.4-12.5); PTT 21.1 SECONDS (25.1-36.5)
[2024-12-17 23:08] LABS: Calcium 9.1 mg/dL (8.4-10.2); Carbon Dioxide 28.0 mmol/L (22-30); Creatinine 1 1.22 mg/dL (0.66-1.25); EST GLOMERULAR FILTRATION RATE 61.8 ML/MIN; Glucose 145.0 mg/dL (74-106); NT PRO BNPII 194.0 pg/mL (<300); Potassium 4.6 mmol/L (3.5-5.1); SGOT/AST 31.0 U/L (17-59); SGPT/ALT 20.0 U/L (0-50); Total Protein 6.7 g/dL (6.3-8.2)
[2024-12-17 23:18] LABS: INFLUENZA A NEGATIVE (NEGATIVE); INFLUENZA B NEGATIVE (NEGATIVE); RESPIRATORY SYNCTIAL VIRUS NEGATIVE (NEGATIVE); SARS-CoV-2 Xpert Express NEGATIVE (NEGATIVE)
[2024-12-17 23:58] LABS: BAND 4 % (0.0-2.0); Total Cells Counted 100
[2024-12-17] MEDS: NORCO 5/325 MG PO ONE (23:58)
[2024-12-17] MEDS ORDERED: NORCO 5/325 MG ONE (23:58)
[2024-12-17 23:59] LABS: Macrocytosis 1+
[2024-12-18 00:18] LABS: Glucose, Urine Negative (Negative); Protein,Urine Dip Negative (Negative); RBC 0-2 /HPF (0-5); WBC 0-2 /HPF (0-5)
--- NOTE | 2024-12-18 00:56 | XRAY ---
CLINICAL HISTORY: CP; SOB; elevated D-dimer COMPARISON: none. TECHNIQUE: Contiguous axial images were obtained from the neck base through the upper abdomen following intravenous administration of contrast material. If IV contrast material had not been administered, the likelihood of detecting abnormalities relevant to the patient's condition would have been substantially decreased. In addition, sagittal and coronal reconstructions were performed. CT scan was performed according to ALARA (as low as reasonably achievable). FINDINGS: No evidence of central pulmonary embolism. Suboptimal study for evaluation of segmental and subsegmental pulmonary arteries due to contrast acquisition. The lungs are clear, with no focal areas of consolidation. No pulmonary nodules are seen. The central airways are patent. There are no pleural effusions. No pneumothorax is seen. No axillary, hilar, or mediastinal adenopathy is identified. The visualized thyroid is unremarkable. The heart, aorta, and pulmonary arteries are of normal size and configuration. No pericardial effusion is identified. Imaged portions of the upper abdomen shows cholelithiasis. No aggressive appearing osseous lesions are identified. IMPRESSION: 1. No acute intrathroacic abnormality detected. 2. No evidence of central pulmonary embolism. 3. Imaged portions of the upper abdomen shows cholelithiasis. Electronically Signed by: Primo Varela MD. (12/18/2024 00:54:26 EDT)
[2024-12-18] MEDS ORDERED: Zofran 4 MG/2 ML VIAL ONE (01:18)
[2024-12-18] MEDS ORDERED: MORPHINE SULFATE 2 MG INJ ONE (01:18)
[2024-12-18] MEDS: MORPHINE SULFATE 2 MG INJ IV ONE (01:19)
[2024-12-18] MEDS: Zofran 4 MG/2 ML VIAL IV ONE (01:19)
[2024-12-18] MEDS: Merrem 1 GM in Sodium Chloride 0.9% 100 ML IV ONE (01:56)
[2024-12-18] MEDS ORDERED: MORPHINE SULFATE 4 MG INJ IV PRN (02:07)
[2024-12-18] MEDS ORDERED: HUMULIN R SQ PRN (02:07)
[2024-12-18] MEDS: Hydromorphone 1 mg/ml Injection IV ONE ×2 (04:31→11:35)
[2024-12-18 05:30] LABS: Hematocrit 36.0 % (40.1-51.0); Hemoglobin 11.2 g/dL (13.7-17.5); Mean Corpuscular Hemoglobin 30.4 pg (25.7-32.2); Mean Corpuscular Hgb Concent. 31.1 g/dL (32.3-36.5); Platelet Count 156 x10^3/uL (163-337); Red Blood Count 3.68 x10^6/uL (4.63-6.08); White Blood Count 17.9 x10^3/uL (4.23-9.07)
[2024-12-18] MEDS ORDERED: Merrem 1 GM in Sodium Chloride 0.9% 100 ML IV SCH ×2 (06:00→10:00)
[2024-12-18 06:15] LABS: Calcium 8.2 mg/dL (8.4-10.2); Carbon Dioxide 27.0 mmol/L (22-30); Creatinine 1 1.32 mg/dL (0.66-1.25); EST GLOMERULAR FILTRATION RATE 56.3 ML/MIN; Glucose 123.0 mg/dL (74-106); NT PRO BNPII 599.0 pg/mL (<300); Potassium 5.1 mmol/L (3.5-5.1); SGOT/AST 28.0 U/L (17-59); SGPT/ALT 15.0 U/L (0-50); Total Protein 5.7 g/dL (6.3-8.2)
--- NOTE | 2024-12-18 07:52 | XRAY ---
Indication: Pain, swelling, elevated d-dimer. Two-dimensional sonogram and color Doppler imaging major venous vessels right leg performed. Comparison: None No thrombus seen in the examined deep venous vessels right leg including greater saphenous vein. Veins demonstrate normal compressibility. Venous waveforms are normal with and without augmentation. Impression: Right leg negative for DVT. Comment: Preliminary report was given.
--- NOTE | 2024-12-18 08:10 | PCM.NOTE ---
Discussed case with Dr. Quiñones (podiatry). Known patient of his; nuclear bone scan planned today for suspected right foot osteomyelitis. Venous Doppler negative for DVT. CT chest w/ contrast shows no PE or acute intrathoracic process. Sepsis most consistent with right foot source. Prior cultures: 11/18/24no growth; 08/28/24Staphylococcus aureus. Allergy profile includes penicillin and moxifloxacin. After pharmacy discussion, will discontinue meropenem and start vancomycin plus cefepime. Obtain blood and wound (and bone, if operative) cultures before antibiotics when feasible. Possible surgical intervention tomorrow pending imaging.
[2024-12-18] MEDS ORDERED: PHARMACY DOSING REQUIRED: VANCOMYCIN IV SCH (08:30)
[2024-12-18 08:50] LABS: BAND 11 % (0.0-2.0); Total Cells Counted 100
[2024-12-18] MEDS: Hydromorphone 1 mg/ml Injection IV PRN (09:52)
[2024-12-18] MEDS: Maxipime 2 GM** 2 G in Sodium Chloride 0.9% 100 ML IV SCH (09:53)
[2024-12-18] MEDS: NORCO 5/325 MG PO PRN (10:24)
[2024-12-18] MEDS ORDERED: NON-FORMULARY ITEM (Fluticasone/Vilanterol [Breo Ellipta 200-25 Mcg Inhalr] 1 EACH Blst.W. SCH (11:30)
[2024-12-18] MEDS: HUMALOG SQ PRN ×2 (11:47→22:18)
[2024-12-18] MEDS: VANCOMYCIN 1 GRAM/200 ML BAG 1 GM/200 ML PIGGYBACK IV SCH (11:47)
[2024-12-18] MEDS ORDERED: MEDICATION INTERVENTION MC SCH ×2 (12:00)
[2024-12-18] MEDS ORDERED: COREG 12.5 MG ONE ×2 (13:46→21:22)
[2024-12-18] MEDS ORDERED: NEURONTIN ONE ×2 (13:46→21:22)
[2024-12-18] MEDS ORDERED: Lotrel 5/10 MG ONE (13:47)
[2024-12-18] MEDS ORDERED: FOLATE 1 MG ONE (13:47)
[2024-12-18] MEDS ORDERED: DELTASONE 5 MG ONE (13:47)
[2024-12-18] MEDS ORDERED: VITAMIN D PO ONE (13:47)
[2024-12-18] MEDS ORDERED: Pepcid 20 MG ONE (13:48)
[2024-12-18] MEDS ORDERED: MAG-OX 400 ONE ×2 (13:48→21:24)
[2024-12-18] MEDS: Vitamin E 400 UNIT SOFTGEL PO SCH ×2 (13:54→14:38)
[2024-12-18] MEDS: Proscar 5 MG PO SCH ×2 (13:55→14:38)
[2024-12-18] MEDS: FOLATE 1 MG PO SCH ×2 (13:55→14:37)
[2024-12-18] MEDS: NEURONTIN PO SCH ×2 (13:55→14:37)
[2024-12-18] MEDS: Lotrel 5/10 MG PO SCH ×2 (13:55→14:37)
[2024-12-18] MEDS: MAG-OX 400 PO SCH ×2 (13:55→14:37)
[2024-12-18] MEDS: COREG 12.5 MG PO SCH ×2 (13:56→14:36)
[2024-12-18] MEDS: Pepcid 20 MG PO SCH ×2 (13:56→14:38)
[2024-12-18] MEDS: DELTASONE 5 MG PO SCH ×2 (13:56→14:37)
[2024-12-18] MEDS: VITAMIN D PO SCH ×2 (13:56→14:38)
--- NOTE | 2024-12-18 17:20 | XRAY ---
Indication: Wheezing. Comparison: December 23, 2021 AP/lateral chest obtained in wheelchair less inflated and remains clear. Heart not enlarged again with left AICD. Bony thorax intact again with osteopenia and mild degenerative changes. Impression: Continued nonacute chest with chronic features.
[2024-12-18 17:38] LABS: Calcium 7.9 mg/dL (8.4-10.2); Carbon Dioxide 25.0 mmol/L (22-30); Creatinine 1 1.4 mg/dL (0.66-1.25); EST GLOMERULAR FILTRATION RATE 52.4 ML/MIN; Glucose 252.0 mg/dL (74-106); Potassium 5.6 mmol/L (3.5-5.1); SGOT/AST 45.0 U/L (17-59); SGPT/ALT 23.0 U/L (0-50); Total Protein 6.2 g/dL (6.3-8.2)
[2024-12-18] MEDS ORDERED: DUONEB 0.5-3 MG/3 ml Neb IH ONE (19:51)
[2024-12-18] MEDS: DUONEB 0.5-3 MG/3 ml Neb IH PRN (19:59)
[2024-12-18] MEDS ORDERED: Ambien 10 MG ONE (21:22)
[2024-12-18] MEDS ORDERED: Tums EX 750 MG ONE (21:22)
[2024-12-18] MEDS ORDERED: Flomax 0.4 MG ONE (21:23)
[2024-12-18] MEDS ORDERED: THERAGRAN MULTIVITAMIN ONE (21:23)
[2024-12-18] MEDS ORDERED: VELTASSA PO ONE (21:26)
[2024-12-18] MEDS: Ambien 10 MG PO SCH (21:35)
[2024-12-18] MEDS: Flomax 0.4 MG PO SCH (21:36)
[2024-12-18] MEDS: Tums EX 750 MG PO SCH (21:36)
[2024-12-18] MEDS: VELTASSA PO STA (21:36)
[2024-12-18] MEDS: THERAGRAN MULTIVITAMIN PO SCH (21:36)
--- NOTE | 2024-12-19 05:27 | PCM.NOTE ---
Date and Time: 12/19/24 0517 Subjective Assessment: Mr. Ruiz is a 74-year-old obese male with a pmhx of coronary artery disease, hypertension, insulin-dependent diabetes mellitus, asthma, prostate disease, and an implanted pacemaker/defibrillator who presented to ED 12/17/24 with multiple complaints after dinner. He noted acute onset of right lower extremity pain with ambulation associated with swelling, without fall or trauma. He also endorsed mild cough, shortness of breath, low-grade fever, and central non-radiating substernal achiness. He is not on anticoagulation therapy. On arrival, he was febrile at 100.6 F. A 12-lead EKG demonstrated sinus rhythm at 61 bpm with QTc 469 ms and no acute ischemic changes. Labs showed elevated procalcitonin, e levated D-dimer (4.34), and BNP checked in context with renal function to guide fluids. UA was negative, viral panel and monospot were negative. CT chest with contrast showed no pulmonary embolism or intrathoracic abnormality. Chest X-ray was clear. Right lower extremity venous Doppler was negative for DVT. Given localized symptoms and known foot pathology, podiatry (Dr. Quiñones) was consulted. Nuclear bone scan was arranged to evaluate suspected right foot osteomyelitis. Prior wound cultures: 11/18/24 with no growth, 08/28/24 positive for Staphylococcus aureus. Currently cultures are growing gram - ID, pending final sensitivity. Antibiotics were transitioned from meropenem to vancomycin plus cefepime/Flagyl after pharmacy review. Blood and wound cultures were ordered prior to antibiotics when feasible. IV fluids were bolused and are running at 100 mL/h. Patient developed 3+ pitting edema and fluids stopped. Overnight, the patient was found to have hyperkalemia. He was treated with patir william (Veltassa) 8.4 g PO 1. Repeat BMP is pending to reassess potassium and renal function. No EKG changes were noted. Potassium levels have now normalized. Patient also noted with 650ml residual following PVR. Will anchor junior. Will add lasix. Surgical intervention may be required pending imaging and podiatry reassessment. 12/19: Patient rested overnight with improved pain control, reports right foot discomfort is now tolerable. No recurrent chest pain, cough, or dyspnea. Febrile trend noted yesterday; currently afebrile. Nursing staff report adequate pain management and improved comfort with ambulation assistance. Nuclear bone scan to be completed today, with podiatry evaluating for possible surgical intervention. Wound culture returned positive for gram-negative organisms; identification pending. IV fluids discontinued in light of bilateral lower extremity pitting edema and history of CHF. Patient started on IV furosemide for volume management and metronidazole was added to broaden anaerobic coverage. Continues on vancomycin and cefepime. Podiatry remains actively involved in management and surgical planning. - Review of Systems Constitutional: Weakness Eyes: No Symptoms Ears, Nose, & Throat: No Symptoms Respiratory: Short Of Breath, Wheezing Cardiac: No Symptoms Abdominal/Gastrointestinal: No Symptoms Genitourinary Symptoms: Urinary Retention Musculoskeletal: No Symptoms Skin: Cellulitis, Skin Lesions Neurological: No Symptoms Psychological: No Symptoms Endocrine: No Symptoms Hematologic/Lymphatic: No Symptoms Immunological/Allergic: No Symptoms Objective Exam General Appearance: no apparent distress Neurologic Exam: alert, oriented x 3, cooperative Skin Exam: other (RLE ext with compression dressing to mid thigh, CDI LLE with 3+Pitting edema) Wound Assessment: Skin/Wound Assessment Wound/Incision Assessment Start: 12/18/24 02:08 Text: Status: Active Freq: Q6H Protocol: Document 12/19/24 00:00 KW (Rec: 12/19/24 00:48 KW [id number]) Wound/Incision Assessment Right lower outer lateral leg (proximal) Wound Assessment Shift Assessment Dressing Status Dry & Intact Drainage Amount None Surrounding Tissue Edematous Comment wrapped, dressing clean/dry/ intact Right lower outer lateral leg (medial) Wound Assessment Shift Assessment Dressing Status Dry & Intact Drainage Amount None Surrounding Tissue Edematous Comment wrapped, dressing clean/dry/ intact Right lower outer lateral leg (distal) Wound Assessment Shift Assessment Dressing Status Dry & Intact Drainage Amount None General Appearance Reddened Surrounding Tissue Edematous Primary Dressing adaptic Comment wrapped, dressing clean/dry/ intact Top of right foot (inner) Wound Assessment Shift Assessment Wound Type Blood blister Wound Stage Non Pressure Wound Dressing Status Dry & Intact Drainage Amount None Surrounding Tissue Edematous Primary Dressing adaptic Comment wrapped, dressing clean/dry/ intact Top of right foot (near 5th toe) Wound Assessment Shift Assessment Dressing Status Dry & Intact Drainage Amount None Drainage Description Purulent Surrounding Tissue Edematous Comment wrapped, dressing clean/dry/ intact Right great toe Wound Assessment Shift Assessment Wound Type Pressure Ulcer Wound Stage Stage III Dressing Status Dry & Intact Drainage Amount None Comment wrapped, dressing clean/dry/ intact Right Lower Leg Wound Assessment Shift Assessment Wound Type cellulitis Wound Stage Non Pressure Wound Dressing Status Dry & Intact Drainage Amount None Drainage Odor None/Absent Surrounding Tissue Edematous Comment wrapped, dressing clean/dry/ intact Wound Photo Photo Taken Yes Date: 12/18/24 Time: 11:00 Eye Exam: PERRL Ears, Nose, Throat Exam: normal ENT inspection Neck Exam: normal inspection Respiratory Exam: diminished breath sounds, wheezing Cardiovascular Exam: regular rate/rhythm, normal heart sounds Gastrointestinal/Abdomen Exam: normal bowel sounds, distention Extremity Exam: pedal edema (BLE Left with 3+ pitting), swelling Male Genitalia Exam: deferred Rectal Exam: deferred Objective Data Vital Signs: Vital Signs - 24 hr Temp Pulse Resp BP Pulse Ox 12/19/24 03:59 98.5 F 89 18 126/60 94 L 12/19/24 00:00 97.7 F 76 18 100/48 95 12/18/24 20:28 77 16 93 L 12/18/24 20:00 97.8 F 79 16 113/53 95 12/18/24 16:33 94 L 12/18/24 16:00 97.7 F 83 16 113/55 91 L 12/18/24 11:09 99.5 F 95 H 16 105/59 93 L 12/18/24 08:02 95 12/18/24 07:21 99.0 F 96 H 16 117/77 92 L Pain Assessment - Last Documented Pain Intensity 4 Pain Scale Used 0-10 Pain Scale Intake and Output: Intake & Output 12/16/24 12/17/24 12/18/24 12/19/24 11:59 11:59 11:59 11:59 Intake Total 280 820 Output Total 100 925 Balance 180 -105 Weight 109.8 kg Lab Results: Lab Results-Last 24 Hours 12/18/24 12/18/24 12/18/24 Range/Units 04:56 04:56 04:56 WBC 17.9 H (4.23-9.07) x10^3/uL RBC 3.68 L (4.63-6.08) x10^6/uL Hgb 11.2 L (13.7-17.5) g/dL Hct 36.0 L (40.1-51.0) % MCV 97.8 H (79.0-92.2) fL MCH 30.4 (25.7-32.2) pg MCHC 31.1 L (32.3-36.5) g/dL RDW 13.5 (11.6-14.4) % Plt Count 156 L (163-337) x10^3/uL MPV 10.0 (9.4-12.4) fL Segmented Neutrophils 81 H (34.0-67.9) % Band Neutrophils 11 H (0.0-2.0) % Lymphocytes (Manual) 7 L (21.8-53.1) % Eosinophils (Manual) 1 (0.8-7.0) % Platelet Estimate NORMAL (NORMAL) RBC Morphology NORMAL Sodium 135 (135-145) mmol/L Potassium 5.1 (3.5-5.1) mmol/L Chloride 101 (98-107) mmol/L Carbon Dioxide 27 (22-30) mmol/L Anion Gap 12.2 (5-15) MEQ/L BUN 36 H (9-20) mg/dL Creatinine 1.32 H (0.66-1.25) mg/dL Estimated GFR 56.3 ML/MIN Glucose 123 H (74-106) mg/dL POC Glucometer (74 to 106) mg/dL Hemoglobin A1c (4.5-6.0) % Lactic Acid (0.4-2.0) Calcium 8.2 L (8.4-10.2) mg/dL Total Bilirubin 0.80 (0.2-1.3) mg/dL AST 28 (17-59) U/L ALT 15 (0-50) U/L Alkaline Phosphatase 42 (38-126) U/L Troponin I 0.039 H* (0.000-0.033) ng/mL NT-Pro-B Natriuret Pep 599 (<300) pg/mL Serum Total Protein 5.7 L (6.3-8.2) g/dL Albumin 3.8 (3.5-5.0) g/dL 12/18/24 12/18/24 12/18/24 Range/Units 05:00 06:00 07:30 WBC (4.23-9.07) x10^3/uL RBC (4.63-6.08) x10^6/uL Hgb (13.7-17.5) g/dL Hct (40.1-51.0) % MCV (79.0-92.2) fL MCH (25.7-32.2) pg MCHC (32.3-36.5) g/dL RDW (11.6-14.4) % Plt Count (163-337) x10^3/uL MPV (9.4-12.4) fL Segmented Neutrophils (34.0-67.9) % Band Neutrophils (0.0-2.0) % Lymphocytes (Manual) (21.8-53.1) % Eosinophils (Manual) (0.8-7.0) % Platelet Estimate (NORMAL) RBC Morphology Sodium (135-145) mmol/L Potassium (3.5-5.1) mmol/L Chloride (98-107) mmol/L Carbon Dioxide (22-30) mmol/L Anion Gap (5-15) MEQ/L BUN (9-20) mg/dL Creatinine (0.66-1.25) mg/dL Estimated GFR ML/MIN Glucose (74-106) mg/dL POC Glucometer 130 H (74 to 106) mg/dL Hemoglobin A1c 6.31 H (4.5-6.0) % Lactic Acid 1.5 (0.4-2.0) Calcium (8.4-10.2) mg/dL Total Bilirubin (0.2-1.3) mg/dL AST (17-59) U/L ALT (0-50) U/L Alkaline Phosphatase (38-126) U/L Troponin I (0.000-0.033) ng/mL NT-Pro-B Natriuret Pep (<300) pg/mL Serum Total Protein (6.3-8.2) g/dL Albumin (3.5-5.0) g/dL 12/18/24 12/18/24 12/18/24 Range/Units 10:26 11:37 16:15 WBC (4.23-9.07) x10^3/uL RBC (4.63-6.08) x10^6/uL Hgb (13.7-17.5) g/dL Hct (40.1-51.0) % MCV (79.0-92.2) fL MCH (25.7-32.2) pg MCHC (32.3-36.5) g/dL RDW (11.6-14.4) % Plt Count (163-337) x10^3/uL MPV (9.4-12.4) fL Segmented Neutrophils (34.0-67.9) % Band Neutrophils (0.0-2.0) % Lymphocytes (Manual) (21.8-53.1) % Eosinophils (Manual) (0.8-7.0) % Platelet Estimate (NORMAL) RBC Morphology Sodium (135-145) mmol/L Potassium (3.5-5.1) mmol/L Chloride (98-107) mmol/L Carbon Dioxide (22-30) mmol/L Anion Gap (5-15) MEQ/L BUN (9-20) mg/dL Creatinine (0.66-1.25) mg/dL Estimated GFR ML/MIN Glucose (74-106) mg/dL POC Glucometer 197 H 235 H (74 to 106) mg/dL Hemoglobin A1c (4.5-6.0) % Lactic Acid (0.4-2.0) Calcium (8.4-10.2) mg/dL Total Bilirubin (0.2-1.3) mg/dL AST (17-59) U/L ALT (0-50) U/L Alkaline Phosphatase (38-126) U/L Troponin I 0.029 (0.000-0.033) ng/mL NT-Pro-B Natriuret Pep (<300) pg/mL Serum Total Protein (6.3-8.2) g/dL Albumin (3.5-5.0) g/dL 12/18/24 12/18/24 12/18/24 Range/Units 17:23 18:24 21:08 WBC (4.23-9.07) x10^3/uL RBC (4.63-6.08) x10^6/uL Hgb (13.7-17.5) g/dL Hct (40.1-51.0) % MCV (79.0-92.2) fL MCH (25.7-32.2) pg MCHC (32.3-36.5) g/dL RDW (11.6-14.4) % Plt Count (163-337) x10^3/uL MPV (9.4-12.4) fL Segmented Neutrophils (34.0-67.9) % Band Neutrophils (0.0-2.0) % Lymphocytes (Manual) (21.8-53.1) % Eosinophils (Manual) (0.8-7.0) % Platelet Estimate (NORMAL) RBC Morphology Sodium 132 L (135-145) mmol/L Potassium 5.6 H 5.8 H (3.5-5.1) mmol/L Chloride 99 (98-107) mmol/L Carbon Dioxide 25 (22-30) mmol/L Anion Gap 13.7 (5-15) MEQ/L BUN 37 H (9-20) mg/dL Creatinine 1.40 H (0.66-1.25) mg/dL Estimated GFR 52.4 ML/MIN Glucose 252 H (74-106) mg/dL POC Glucometer 206 H (74 to 106) mg/dL Hemoglobin A1c (4.5-6.0) % Lactic Acid (0.4-2.0) Calcium 7.9 L (8.4-10.2) mg/dL Total Bilirubin 1.00 (0.2-1.3) mg/dL AST 45 (17-59) U/L ALT 23 (0-50) U/L Alkaline Phosphatase 57 (38-126) U/L Troponin I (0.000-0.033) ng/mL NT-Pro-B Natriuret Pep (<300) pg/mL Serum Total Protein 6.2 L (6.3-8.2) g/dL Albumin 4.1 (3.5-5.0) g/dL Radiology Exams: Radiology Procedures Category Date Time Status BONE THREE PHASE [NUCMED] Stat Exams 12/18/24 07:59 Ordered CHEST 2 VIEWS (PA AND LAT) Stat Exams 12/18/24 16:31 Completed CHEST WITH CONTRAST [CT] Stat Exams 12/17/24 23:30 Completed VENOUS UNILAT/LIMITED EXTREMIT [US] Stat Exams 12/17/24 23:31 Completed Medications: Medications Generic Name Dose Route Start Last Admin Trade Name Freq PRN Reason Stop Dose Admin Hydrocodone Bitart/Acetaminophen 1 tab 12/18/24 09:37 12/19/24 03:02 Hydrocodone/Apap 5/325 1 Tab Tablet PO 12/23/24 09:36 1 tab Q4H PRN PRN Administration PAIN Albuterol/Ipratropium 3 ml 12/18/24 19:49 12/18/24 19:59 Ipratropium/Albuterol Sulfate 3 Ml Ampul.Neb IH 01/17/25 19:48 3 ml Q4HPRN PRN Administration SHORTNESS OF BREATH/WHEEZING Amlodipine/Benazepril HCl 2 cap 12/18/24 14:30 12/18/24 13:55 Amlodipine/Benzapril 5mg/10mg Capsule PO 01/17/25 14:29 2 cap DAILY DL Administration Calcium Carbonate/Glycine 750 mg 12/18/24 22:00 12/18/24 21:36 Calcium Carbonate 750 Mg 750 Mg Tab.Chew PO 01/17/25 21:59 750 mg BID DL Administration Carvedilol 25 mg 12/18/24 14:30 12/18/24 21:35 Carvedilol 12.5 Mg Tablet PO 01/17/25 14:29 25 mg BID DL Administration Cholecalciferol 2,000 unit 12/18/24 14:30 12/18/24 13:56 Cholecalciferol (Vitamin D3) 1000 Unit Tablet PO 01/17/25 14:29 2,000 unit DAILY DL Administration Device 1 12/20/24 09:30 Therapuetic Drug Level Monitor Each IJ 12/20/24 09:31 1XONLY ONE Famotidine 40 mg 12/18/24 14:30 12/18/24 13:56 Famotidine 20 Mg Tablet PO 01/17/25 14:29 40 mg DAILY DL Administration Finasteride 5 mg 12/18/24 14:30 12/18/24 13:55 Finasteride 5 Mg Tablet PO 01/17/25 14:29 5 mg DAILY DL Administration Folic Acid 1 mg 12/18/24 14:30 12/18/24 13:55 Folic Acid 1 Mg Tablet PO 01/17/25 14:29 1 mg DAILY DL Administration Gabapentin 300 mg 12/18/24 14:30 12/18/24 21:36 Gabapentin 300 Mg Capsule PO 01/17/25 14:29 300 mg BID DL Administration Hydromorphone HCl 0.5 mg 12/18/24 09:37 12/18/24 13:53 Hydromorphone 1 Mg/1ml Inj IV 12/23/24 09:36 0.5 mg Q4H PRN PRN Administration PAIN Cefepime HCl 2 g/ Sodium 100 mls @ 200 mls/hr 12/18/24 09:00 12/18/24 21:34 Chloride IV 01/17/25 08:59 200 mls/hr Q12H DL Administration Vancomycin HCl 1 gm in 200 mls @ 133.333 mls/hr 12/18/24 10:00 12/18/24 21:35 Vancomycin 1 Gram/200 Ml Bag IV 01/17/25 09:59 133.333 mls/hr Q12HT DL Administration Insulin Human Lispro 0 unit 12/18/24 18:19 12/18/24 22:18 Insulin Lispro 1 Unit SQ 01/17/25 18:18 6 unit UD PRN Administration HYPERGLYCEMIA Magnesium Oxide 400 mg 12/18/24 14:30 12/18/24 21:36 Magnesium Oxide 400 Mg Tablet PO 01/17/25 14:29 400 mg BID DL Administration Methotrexate 25 mg 12/24/24 10:00 Methotrexate Sodium 2.5 Mg Tablet PO 01/23/25 09:59 Q7D DL Miscellaneous Information 1 each 12/18/24 12:00 Medication Intervention 1 Each Each 01/17/25 11:59 .RT TO CHECK DL Miscellaneous Information 1 each 12/18/24 12:00 Medication Intervention 1 Each Each MC 01/17/25 11:59 .RN TO CHECK DL Multivitamins Therapeutic 1 tab 12/18/24 22:00 12/18/24 21:36 Multivitamins,Therapeutic 1 Tab Tab PO 01/17/25 21:59 1 tab HS DL Administration Ondansetron HCl 4 mg 12/18/24 02:07 Ondansetron Hcl 4 Mg/2 Ml Vial IV 01/17/25 02:06 Q6H PRN PRN NAUSEA/VOMITING Patiromer 8.4 gm 12/18/24 18:41 12/18/24 21:36 Patiromer Calcium Sorbitex 8.4 Gm Powd.Pack PO 12/18/24 18:42 8.4 gm STAT STA Administration Prednisone 5 mg 12/18/24 14:30 12/18/24 13:56 Prednisone 5 Mg Tablet PO 01/17/25 14:29 5 mg DAILY DL Administration Tamsulosin HCl 0.4 mg 12/18/24 22:00 12/18/24 21:36 Tamsulosin Hcl 0.4 Mg Cap PO 01/17/25 21:59 0.4 mg HS DL Administration Vitamin E 400 units 12/18/24 14:30 12/18/24 13:54 Vitamin E 400 Units 400 Units Capsule PO 01/17/25 14:29 400 units DAILY DL Administration Zolpidem Tartrate 10 mg 12/18/24 22:00 12/18/24 21:35 Zolpidem Tartrate 10 Mg Tablet PO 01/17/25 21:59 10 mg HS DL Administration Discontinued Medications Generic Name Dose Route Start Last Admin Trade Name Ellen PRN Reason Stop Dose Admin Acetaminophen 650 mg 12/17/24 22:39 12/17/24 22:46 Acetaminophen 325 Mg Tablet PO 12/17/24 22:40 650 mg STAT ONE Administration Acetaminophen Confirm 12/17/24 22:46 Acetaminophen 325 Mg Tablet Administered 12/17/24 22:47 Dose 650 mg .ROUTE .STK-MED ONE Hydrocodone Bitart/Acetaminophen 1 tab 12/17/24 23:30 12/17/24 23:58 Hydrocodone/Apap 5/325 1 Tab Tablet PO 12/17/24 23:31 1 tab STAT ONE Administration Hydrocodone Bitart/Acetaminophen Confirm 12/17/24 23:58 Hydrocodone/Apap 5/325 1 Tab Tablet Administered 12/17/24 23:59 Dose 1 tab .ROUTE .STK-MED ONE Amlodipine/Benazepril HCl 2 cap 12/18/24 12:00 12/18/24 14:37 Amlodipine/Benzapril 5mg/10mg Capsule PO 01/17/25 11:59 Not Given DAILY [facility] Carvedilol 25 mg 12/18/24 12:00 12/18/24 14:36 Carvedilol 12.5 Mg Tablet PO 01/17/25 11:59 Not Given BID [facility] Cholecalciferol 2,000 unit 12/18/24 12:00 12/18/24 14:38 Cholecalciferol (Vitamin D3) 1000 Unit Tablet PO 01/17/25 11:59 Not Given DAILY [facility] Famotidine 40 mg 12/18/24 12:00 12/18/24 14:38 Famotidine 20 Mg Tablet PO 01/17/25 11:59 Not Given DAILY DL Finasteride 5 mg 12/18/24 12:00 12/18/24 14:38 Finasteride 5 Mg Tablet PO 01/17/25 11:59 Not Given DAILY DL Folic Acid 1 mg 12/18/24 12:00 12/18/24 14:37 Folic Acid 1 Mg Tablet PO 01/17/25 11:59 Not Given DAILY DL Gabapentin 300 mg 12/18/24 12:00 12/18/24 14:37 Gabapentin 300 Mg Capsule PO 01/17/25 11:59 Not Given BID DL Hydromorphone HCl 0.5 mg 12/18/24 04:17 12/18/24 04:31 Hydromorphone 1 Mg/1ml Inj IV 12/18/24 04:18 0.5 mg STAT ONE Administration Hydromorphone HCl 0.5 mg 12/18/24 10:25 12/18/24 11:35 Hydromorphone 1 Mg/1ml Inj IV 12/18/24 10:26 Not Given STAT ONE Sodium Chloride 1,000 mls @ 100 mls/hr 12/17/24 22:15 12/18/24 02:08 Sodium Chloride 0.9% 1000 Ml IV 01/16/25 22:14 Infused .Q10H DL Infusion Meropenem 1 gm/ Sodium 100 mls @ 200 mls/hr 12/18/24 01:52 12/18/24 01:56 Chloride IV 12/18/24 02:21 200 mls/hr STAT ONE 200 mls/hr Administration Sodium Chloride 1,000 mls @ 999 mls/hr 12/18/24 01:52 12/18/24 02:29 Sodium Chloride 0.9% 1000 Ml IV 12/18/24 02:52 0 mls/hr .Q1H1M STA Infusion Sodium Chloride Confirm 12/18/24 01:55 Sodium Chloride 0.9% Administered 12/18/24 01:56 Dose 100 mls @ ud .ROUTE .STK-MED ONE Sodium Chloride Confirm 12/17/24 22:20 Sodium Chloride 0.9% 1000 Ml Administered 12/17/24 22:21 Dose 1,000 mls @ ud .ROUTE .STK-MED ONE Sodium Chloride Confirm 12/18/24 01:54 Sodium Chloride 0.9% 1000 Ml Administered 12/18/24 01:55 Dose 1,000 mls @ ud .ROUTE .STK-MED ONE Meropenem 1 gm/ Sodium 100 mls @ 200 mls/hr 12/18/24 06:00 Chloride IV 12/21/24 05:59 Q8HT DL Sodium Chloride 1,000 mls @ 100 mls/hr 12/18/24 02:07 12/18/24 04:32 Sodium Chloride 0.9% 1000 Ml IV 01/17/25 02:06 100 mls/hr .Q10H DL Administration Meropenem 1 gm/ Sodium 100 mls @ 200 mls/hr 12/18/24 10:00 Chloride IV 12/21/24 09:59 Q8H DL Insulin Human Lispro 0 unit 12/18/24 08:01 12/18/24 17:14 Insulin Lispro 1 Unit SQ 01/17/25 08:00 5 unit UD PRN Administration HYPERGLYCEMIA Insulin Human Regular 0 unit 12/18/24 02:07 Insulin Regular, Human 1 Unit SQ 01/17/25 02:06 UD PRN HYPERGLYCEMIA Magnesium Oxide 400 mg 12/18/24 12:00 12/18/24 14:37 Magnesium Oxide 400 Mg Tablet PO 01/17/25 11:59 Not Given BID DL Meropenem Confirm 12/18/24 01:54 Meropenem 1 Gm Vial Administered 12/18/24 01:55 Dose 1 gm IV .STK-MED ONE Morphine Sulfate 2 mg 12/18/24 01:16 12/18/24 01:19 Morphine Sulfate 2 Mg/Ml Inj IV 12/18/24 01:17 2 mg STAT ONE Administration Morphine Sulfate Confirm 12/18/24 01:18 Morphine Sulfate 2 Mg/Ml Inj Administered 12/18/24 01:19 Dose 2 mg .ROUTE .STK-MED ONE Morphine Sulfate 4 mg 12/18/24 02:07 Morphine Sulfate 4 Mg/Ml Injection IV 12/23/24 02:06 Q4H PRN PRN SEVERE PAIN Non-Formulary Medication 1 each 12/18/24 08:30 Pharmacy Dose Request: Vancomycin 1 Each IV 01/17/25 08:29 [address] Non-Formulary Medication 1 each 12/18/24 08:16 Pharmacy Dosing Request MC 12/18/24 08:17 STAT ONE Ondansetron HCl 4 mg 12/18/24 01:16 12/18/24 01:19 Ondansetron Hcl 4 Mg/2 Ml Vial IV 12/18/24 01:17 4 mg STAT ONE Administration Ondansetron HCl Confirm 12/18/24 01:18 Ondansetron Hcl 4 Mg/2 Ml Vial Administered 12/18/24 01:19 Dose 4 mg .ROUTE .STK-MED ONE Prednisone 5 mg 12/18/24 12:00 12/18/24 14:37 Prednisone 5 Mg Tablet PO 01/17/25 11:59 Not Given DAILY DL Vitamin E 400 units 12/18/24 12:00 12/18/24 14:38 Vitamin E 400 Units 400 Units Capsule PO 01/17/25 11:59 Not Given DAILY [facility] Multi-Disciplinary Progress Notes: Multi-Disciplinary Progress Notes 12/18/24 08:48 Pharmacy Note by Jimmy Stafford Maxipime dosed at 2gm iv q12h. Vancomycin 1gm iv q12h. Trough Monday am. Will watch creatinine and adjust doses as needed. Initialized on 12/18/24 08:48 - END OF NOTE Assessment/Plan (1) Sepsis Current Visit: Yes Status: Acute Assessment & Plan: -Evidence: fever, WBC at 14.9 on admission up to 17.9, elevated lactate/procalcitonin elevation, source of infection cellulitis right foot - history of chronic foot issues, prior S. aureus culture -Doppler RLE negative for DVT - negative alternative workup (UA, chest imaging). -Continue empiric vancomycin + cefepime -Blood, wound, and bone cultures (possible with surgical intervention if needed) pending . -Podiatry following, discussed case -Nuclear bone scan pending; podiatry evaluating for surgical intervention. -Trend inflammatory markers, WBC, lactate- lactate now WNL -Fluids dcd due to BLE edema- -Daily renal monitoring for antibiotic dosing. 12/19/24: -WBC reviewed and at 23.9>17.9>14.9 -Continue vanc/cefepime/add flagyl- renally dosed -Wound cultures growing gram - pending final sensitivity -Bone scan pending -Podiatry following - surgical eval pending bone scan results -Lactic now WNL (2) Cellulitis of right leg Current Visit: Yes Status: Acute Assessment & Plan: -see sepsis Code(s): L03.115 - CELLULITIS OF RIGHT LOWER LIMB (3) Osteomyelitis of right foot Current Visit: Yes Status: Acute Assessment & Plan: -see above Code(s): M86.9 - OSTEOMYELITIS, UNSPECIFIED (4) Hyperkalemia Current Visit: Yes Status: Acute Assessment & Plan: - potassium level at 5.8 12/19-patient given [place] -tele -monitor renal/lytes daily -Repeat potassium reviewed and now wnl at 5.1- trend daily Code(s): E87.5 - HYPERKALEMIA (5) Edema of right lower extremity Current Visit: Yes Status: Acute Assessment & Plan: -localized swelling/pain, negative Doppler. -Supportive care: leg elevation, pain control (acetaminophen). -Daily exams for erythema, warmth, or abscess development. -See sepsis for cellulitis/osteo plan -compression dressing to RLE Code(s): R60.0 - LOCALIZED EDEMA (6) Chest pain Current Visit: Yes Status: Acute Assessment & Plan: -substernal achiness, non-radiating, normal EKG, no ischemia. -Trend troponins to exclude ACS -negative mild but on trop number 2 but 3rd troponin WNL -chest pain resolved -Telemetry monitoring due to CAD and device in place. -If recurrent or progressive symptoms, repeat EKG and consider cardiology input. Code(s): R07.9 - CHEST PAIN, UNSPECIFIED (7) CAD (coronary artery disease) Current Visit: Yes Status: Acute Assessment & Plan: -Continue home meds (statin, aspirin, beta-abraham if prescribed). -Monitor for arrhythmias on telemetry. Code(s): I25.10 - ATHSCL HEART DISEASE OF [place] CORONARY ARTERY W/O ANG PCTRS (8) HTN (hypertension) Current Visit: Yes Status: Acute Assessment & Plan: -Resume home antihypertensives if stable; hold ACEi/ARB if renal function worsens. Code(s): I10 - ESSENTIAL (PRIMARY) HYPERTENSION (9) Diabetes mellitus with insulin therapy Current Visit: Yes Status: Acute Assessment & Plan: -ADA diet -Resume SSI/basal/ bolus insulin -A1c 6.31 good control Code(s): E11.9 - TYPE 2 DIABETES MELLITUS WITHOUT COMPLICATIONS; Z79.4 - INTERMEDIATE (CURRENT) USE OF INSULIN (10) Asthma Current Visit: Yes Status: Acute Assessment & Plan: -Continue inhalers; monitor for bronchospasm Code(s): J45.909 - UNSPECIFIED ASTHMA, UNCOMPLICATED (11) BPH (benign prostatic hyperplasia) Current Visit: Yes Status: Acute Assessment & Plan: -resume home meds; monitor for retention. Code(s): N40.0 - BENIGN PROSTATIC HYPERPLASIA WITHOUT LOWER URINRY TRACT SYMP (12) Obesity Current Visit: Yes Status: Acute Assessment & Plan: -Advised diet and exercise Code(s): E66.9 - OBESITY, UNSPECIFIED (13) Urinary retention Current Visit: Yes Status: Acute Assessment & Plan: -PVR with > 600mls retained x 2 -[place] junior cath Code(s): R33.9 - RETENTION OF URINE, UNSPECIFIED (14) WILDA (acute kidney injury) Current Visit: Yes Status: Acute Assessment & Plan: -Creatinine increased to 1.85 (baseline WNL), patient with BLE edema, recent contrast exposure, sepsis, and on nephrotoxic antibiotics (vancomycin, cefepime). -Urine output with noted retention > 600mls PVR - junior placed -Hold maintenance IV fluids; trial IV furosemide for volume overload, reassess response -Strict I/O, daily weights. -Renally dose all meds -Consider nephrology consult if creatinine continues to rise, oliguria/anuria develops, or electrolyte/acidbase complications worsen. VTE: Hold for surgery PPI: protonix Dispo: 2-3 days Code status: Full Code Plan of care time spent > 40 mins Code(s): N17.9 - ACUTE KIDNEY FAILURE, UNSPECIFIED
--- NOTE | 2024-12-19 07:24 | PCM.CONS ---
Podiatry HPI - Consult Date of Consultation Date: 12/18/24 Reason for Consult: Right foot diabetic foot ulcers previous history of amputation and cellulitis to the right lower extremity, Sepsis Consulting Provider: JESUS JONES DPM - [facility] History of Present Illness: Mr. Bender a very pleasant 74-year-old male very well-known to my service with past medical history of CAD, HTN, IDDM, asthma, prostate disease, and pacem xochilt/defibrillator, presented 12/17/24 with acute right leg pain/swelling, fever, mild cough, SOB, and chest discomfort. Workup showed fever 100.6 F, elevated procalcitonin and D-dimer, but negative PE/DVT, clear chest imaging, and negative UA/viral panel.Patient seemingly febrile on admission. Patient largely concerned about his Ca Medications & Allergies Home Medications: Home Medication List Acetaminophen [Tylenol Extra Strength] 500 mg PO Q6H PRN 10/14/17 [History Confirmed 12/18/24] Amlodipine Besylate/Benazepril [Lotrel 10-20 mg Capsule] 1 each PO DAILY 10/14/17 [History Confirmed 12/18/24] Aspirin 81 mg PO DAILY 10/14/17 [History Confirmed 12/18/24] Cholecalciferol (Vitamin D3) [Vitamin D] 2,000 unit PO DAILY 10/14/17 [History Confirmed 12/18/24] Furosemide 20 mg [Lasix 20 mg] 40 mg PO DAILY 10/14/17 [History Confirmed 12/18/24] Magnesium Oxide 400 mg [Mag-Ox 400] 400 mg PO BID 10/14/17 [History Confirmed 12/18/24] Multivitamin [Multivitamins] 1 each PO HS 10/14/17 [History Confirmed 12/18/24] Tamsulosin HCl [Flomax] 0.4 mg PO HS 10/14/17 [History Confirmed 12/18/24] Vitamin E 400 unit PO DAILY 10/14/17 [History Confirmed 12/18/24] Zolpidem Tartrate 10 mg [Ambien 10 MG] 10 mg PO HS 10/14/17 [History Confirmed 12/18/24] carvediloL [Coreg] 25 mg PO BID 10/14/17 [History Confirmed 12/18/24] Famotidine [Pepcid] 40 mg PO DAILY 07/13/18 [History Confirmed 12/18/24] Insulin NPH/Reg 70/30 [Novolin 70/30] 40 unit SQ UD 07/13/18 [History Confirmed 12/18/24] Fluticasone/Vilanterol [Breo Ellipta 200-25 Mcg INH] See Rx Instructions .ROUTE .COMPLEX 05/31/22 [History Confirmed 12/18/24] Gabapentin [Neurontin] 300 mg PO BID 05/31/22 [History Confirmed 12/18/24] Eplerenone 25 mg PO DAILY 12/17/24 [History Confirmed 12/18/24] Finasteride 5 mg [Proscar 5 MG] 5 mg PO DAILY 12/17/24 [History Confirmed 12/18/24] Folic Acid 1 mg [Folate 1 mg] 1 mg PO DAILY 12/17/24 [History Confirmed 12/18/24] Methotrexate Sodium 2.5 mg [Trexall 2.5 mg] 2.5 mg PO UD 12/17/24 [History Confirmed 12/18/24] Prednisone 10 mg [Deltasone 10 mg] 5 mg PO DAILY 12/17/24 [History Confirmed 12/18/24] Tocilizumab [Actemra Actpen] 1 mg SQ WEEKLY 12/17/24 [History Confirmed 12/18/24] Allergies/Adverse Reactions: Allergies Allergy/AdvReac Type Severity Reaction Status Date / Time tizanidine Allergy Severe Anaphylactic Verified 12/18/24 02:43 Reaction moxifloxacin [From Avelox] Allergy Mild Fainting Verified 12/18/24 02:43 midazolam [From Versed] AdvReac Irregular Verified 12/18/24 02:43 Heart Beat Penicillins AdvReac Hives Verified 12/18/24 02:43 spironolactone AdvReac Irregular Verified 12/18/24 02:43 [From Aldactone] Heart Beat - Past Medical History Past Medical History: Yes Neurological History: No Pertinent History ENT History: Cataracts Cardiac History: High Cholesterol, Hypertension Respiratory History: Asthma Endocrine Medical History: No Pertinent History Musculoskelatal History: No Pertinent History GI Medical History: No Pertinent History History: No Pertinent History Pyscho-Social History: No Pertinent History Male Reproductive Disorders: No Pertinent History Comment: PMH: PSH: - Past Surgical History Past Surgical History: Yes Neuro Surgical History: No Pertinent History Cardiac History: Cardiac Catheterization, Internal Defibrillator, Pacemaker Respiratory Surgery: No Pertinent History GI Surgical History: Other Genitourinary Surgical Hx: Other Musculskeletal Surgical Hx: Joint Replacement, Orthopedic Surgery Male Surgical History: No Pertinent History Other Surgical History: CARPAL TUNNEL, CHYLOUS MESENTERY CYST (partial small intestine removed), KIDNEY STONE, RTK, R ankle fx, Significant Family History: no pertinent family hx - Social History Smoking Status: Never smoker Exposure to second hand smoke: No Alcohol: None Drug Use: none - Social Determinants of Health Will the patient participate in the screening: Yes Do you worry about a steady place to live?: No Do you have any problems with any of the following?: No known problems In the past 12 months,have you had to go without utilities?: No Have you or anyone in your house had to go without enough: No Transportation Issues: No Has anyone in your support network made you feel unsafe?: No Does the patient want assistance with any of the above?: No Physical Exam - Narrative Narrative Physical Exam: Podiatry Physical Exam Results - Labs Lab/Micro Results: Lab Results-Last 24 Hours 12/18/24 12/18/24 12/18/24 Range/Units 04:56 06:00 07:30 Segmented Neutrophils 81 H (34.0-67.9) % Band Neutrophils 11 H (0.0-2.0) % Lymphocytes (Manual) 7 L (21.8-53.1) % Eosinophils (Manual) 1 (0.8-7.0) % Platelet Estimate NORMAL (NORMAL) RBC Morphology NORMAL Sodium (135-145) mmol/L Potassium (3.5-5.1) mmol/L Chloride (98-107) mmol/L Carbon Dioxide (22-30) mmol/L Anion Gap (5-15) MEQ/L BUN (9-20) mg/dL Creatinine (0.66-1.25) mg/dL Estimated GFR ML/MIN Glucose (74-106) mg/dL POC Glucometer 130 H (74 to 106) mg/dL Hemoglobin A1c 6.31 H (4.5-6.0) % Calcium (8.4-10.2) mg/dL Total Bilirubin (0.2-1.3) mg/dL AST (17-59) U/L ALT (0-50) U/L Alkaline Phosphatase (38-126) U/L Troponin I (0.000-0.033) ng/mL Serum Total Protein (6.3-8.2) g/dL Albumin (3.5-5.0) g/dL 12/18/24 12/18/24 12/18/24 Range/Units 10:26 11:37 16:15 Segmented Neutrophils (34.0-67.9) % Band Neutrophils (0.0-2.0) % Lymphocytes (Manual) (21.8-53.1) % Eosinophils (Manual) (0.8-7.0) % Platelet Estimate (NORMAL) RBC Morphology Sodium (135-145) mmol/L Potassium (3.5-5.1) mmol/L Chloride (98-107) mmol/L Carbon Dioxide (22-30) mmol/L Anion Gap (5-15) MEQ/L BUN (9-20) mg/dL Creatinine (0.66-1.25) mg/dL Estimated GFR ML/MIN Glucose (74-106) mg/dL POC Glucometer 197 H 235 H (74 to 106) mg/dL Hemoglobin A1c (4.5-6.0) % Calcium (8.4-10.2) mg/dL Total Bilirubin (0.2-1.3) mg/dL AST (17-59) U/L ALT (0-50) U/L Alkaline Phosphatase (38-126) U/L Troponin I 0.029 (0.000-0.033) ng/mL Serum Total Protein (6.3-8.2) g/dL Albumin (3.5-5.0) g/dL 12/18/24 12/18/24 12/18/24 Range/Units 17:23 18:24 21:08 Segmented Neutrophils (34.0-67.9) % Band Neutrophils (0.0-2.0) % Lymphocytes (Manual) (21.8-53.1) % Eosinophils (Manual) (0.8-7.0) % Platelet Estimate (NORMAL) RBC Morphology Sodium 132 L (135-145) mmol/L Potassium 5.6 H 5.8 H (3.5-5.1) mmol/L Chloride 99 (98-107) mmol/L Carbon Dioxide 25 (22-30) mmol/L Anion Gap 13.7 (5-15) MEQ/L BUN 37 H (9-20) mg/dL Creatinine 1.40 H (0.66-1.25) mg/dL Estimated GFR 52.4 ML/MIN Glucose 252 H (74-106) mg/dL POC Glucometer 206 H (74 to 106) mg/dL Hemoglobin A1c (4.5-6.0) % Calcium 7.9 L (8.4-10.2) mg/dL Total Bilirubin 1.00 (0.2-1.3) mg/dL AST 45 (17-59) U/L ALT 23 (0-50) U/L Alkaline Phosphatase 57 (38-126) U/L Troponin I (0.000-0.033) ng/mL Serum Total Protein 6.2 L (6.3-8.2) g/dL Albumin 4.1 (3.5-5.0) g/dL 12/19/24 Range/Units 07:00 Segmented Neutrophils (34.0-67.9) % Band Neutrophils (0.0-2.0) % Lymphocytes (Manual) (21.8-53.1) % Eosinophils (Manual) (0.8-7.0) % Platelet Estimate (NORMAL) RBC Morphology Sodium (135-145) mmol/L Potassium (3.5-5.1) mmol/L Chloride (98-107) mmol/L Carbon Dioxide (22-30) mmol/L Anion Gap (5-15) MEQ/L BUN (9-20) mg/dL Creatinine (0.66-1.25) mg/dL Estimated GFR ML/MIN Glucose (74-106) mg/dL POC Glucometer 161 H (74 to 106) mg/dL Hemoglobin A1c (4.5-6.0) % Calcium (8.4-10.2) mg/dL Total Bilirubin (0.2-1.3) mg/dL AST (17-59) U/L ALT (0-50) U/L Alkaline Phosphatase (38-126) U/L Troponin I (0.000-0.033) ng/mL Serum Total Protein (6.3-8.2) g/dL Albumin (3.5-5.0) g/dL Microbiology 12/18/24 12:08 Wound Culture - Preliminary Foot - Right GRAM NEGATIVE ID AND SENSITIVITY PENDING 12/18/24 11:44 Wound Culture - Preliminary Toe - R Big (Greater) GRAM NEGATIVE ID AND SENSITIVITY PENDING Accuchecks Date 12/18/24 Date 12/18/24 Date 12/18/24 Date 12/18/24 Time 00:22 Time 16:22 Time 11:39 Time 07:33 - Radiology Impressions Radiology Exams & Impressions: Radiology Procedures Category Date Time Status BONE THREE PHASE [NUCMED] Stat Exams 12/18/24 07:59 Ordered CHEST 2 VIEWS (PA AND LAT) Stat Exams 12/18/24 16:31 Completed CHEST WITH CONTRAST [CT] Stat Exams 12/17/24 23:30 Completed VENOUS UNILAT/LIMITED EXTREMIT [US] Stat Exams 12/17/24 23:31 Completed - Other Procedures and Tests Respiratory Therapy 12/18/24 16:33 Incentive Spirometry UD 12/18/24 20:03 Respiratory Therapy Assessment DAILY Assessment/Plan (1) Cellulitis of right leg Current Visit: Yes Status: Acute Assessment & Plan: . Doppler obtained to the right lower extremity demonstrating negative for venous insufficiency. Patient does have palpable pulses and is a good candidate for compression therapy at this time which was provided in the form of iodine paint to the right leg Unna boot Curlex and Coban with moderate compression. Code(s): L03.115 - CELLULITIS OF RIGHT LOWER LIMB (2) Diabetes mellitus with insulin therapy Current Visit: Yes Status: Acute Code(s): E11.9 - TYPE 2 DIABETES MELLITUS WITHOUT COMPLICATIONS; Z79.4 - HALFWAY (CURRENT) USE OF INSULIN (3) Edema of right lower extremity Current Visit: Yes Status: Acute Code(s): R60.0 - LOCALIZED EDEMA (4) Osteomyelitis of right foot Current Visit: Yes Status: Acute Assessment & Plan: Rule out osteomyelitis right great toe Given localized symptoms and known foot pathology Nuclear bone scan is pending for suspected osteomyelitis. Past wound cultures: 11/18 no growth, 08/28 S. aureus. Antibiotics changed from meropenem to vancomycin + cefepime. Blood/wound cultures obtained pre-antibiotics when possible. Will await bone scan for decision making. Code(s): M86.9 - OSTEOMYELITIS, UNSPECIFIED (5) Sepsis Current Visit: Yes Status: Acute (6) Toe infection Current Visit: No Status: Acute Code(s): L08.9 - LOCAL INFECTION OF THE SKIN AND SUBCUTANEOUS TISSUE, UNSP
[2024-12-19 07:25] LABS: Hematocrit 31.8 % (40.1-51.0); Hemoglobin 9.7 g/dL (13.7-17.5); Mean Corpuscular Hemoglobin 30.8 pg (25.7-32.2); Mean Corpuscular Hgb Concent. 30.5 g/dL (32.3-36.5); Platelet Count 134 x10^3/uL (163-337); Red Blood Count 3.15 x10^6/uL (4.63-6.08); White Blood Count 23.9 x10^3/uL (4.23-9.07)
[2024-12-19] MEDS: PHARMACY RENAL DOSING MC ONE ×3 (07:37→10:55)
[2024-12-19 07:44] LABS: Calcium 7.7 mg/dL (8.4-10.2); Carbon Dioxide 26.0 mmol/L (22-30); Creatinine 1 1.85 mg/dL (0.66-1.25); EST GLOMERULAR FILTRATION RATE 37.5 ML/MIN; Glucose 169.0 mg/dL (74-106); Potassium 5.1 mmol/L (3.5-5.1); SGOT/AST 80.0 U/L (17-59); SGPT/ALT 22.0 U/L (0-50); Total Protein 5.3 g/dL (6.3-8.2)
[2024-12-19] MEDS: HUMALOG SQ SCH (09:29)
[2024-12-19] MEDS ORDERED: EPLERENONE 25 MG PO SCH (10:00)
[2024-12-19] MEDS: Lasix 40 MG/4 ML IV SCH (10:22)
[2024-12-19] MEDS: MAXIPIME 1 GM** 1 G in Sodium Chloride 0.9% 100 ML IV SCH (10:29)
[2024-12-19] MEDS: Lantus Insulin SQ SCH (10:32)
[2024-12-19] MEDS: Flagyl 500 MG PO SCH (11:20)
[2024-12-19 14:17] LABS: Calcium 7.9 mg/dL (8.4-10.2); Carbon Dioxide 25.0 mmol/L (22-30); Creatinine 1 1.43 mg/dL (0.66-1.25); EST GLOMERULAR FILTRATION RATE 51.1 ML/MIN; Glucose 236.0 mg/dL (74-106); Potassium 5.2 mmol/L (3.5-5.1); SGOT/AST 97.0 U/L (17-59); SGPT/ALT 27.0 U/L (0-50); Total Protein 5.5 g/dL (6.3-8.2)
[2024-12-19 15:39] LABS: Glucose, Urine Negative (Negative); Protein,Urine Dip Trace (Negative); WBC 0-2 /HPF (0-5)
[2024-12-19] MEDS ORDERED: Amidate 20 MG/10 ML IV ONE (17:18)
[2024-12-19] MEDS ORDERED: propofoL IV ONE (17:19)
[2024-12-19] MEDS ORDERED: PHENYLEPHRINE HCL ONE (17:21)
[2024-12-19] MEDS ORDERED: SUBLIMAZE 100 MCG/2 ML ONE ×2 (17:23→18:33)
[2024-12-19] MEDS ORDERED: Versed 2 MG/2 ML Injection ONE (17:34)
--- NOTE | 2024-12-19 17:50 | XRAY ---
Indication: Osteomyelitis right great toe. Comparison: None Patient received 29.0 mCi technetium 99 MDP. Immediate anterior/posterior flow and blood pool images obtained of both lower leg/ankle/feet. 3.5 hour delayed images obtained in anterior, posterior, medial, lateral, and plantar planes. Blood flow and also lesser degree blood pool images demonstrate subtle increased radiopharmaceutical activity right lower leg/ankle/foot. Delayed images demonstrates focal increased radiopharmaceutical activity right great toe. Impression: Positive three-phase bone scan exam favoring right great toe osteomyelitis.
[2024-12-19] MEDS ORDERED: Xylocaine 1% Vial 30 ML PF IJ ONE (17:51)
[2024-12-19] MEDS ORDERED: Marcaine Mpf 0.5% Vial 30 Ml ONE (17:51)
[2024-12-19] MEDS ORDERED: DILAUDID 0.5 MG/0.5 ML SYRINGE ONE (18:34)
[2024-12-19] MEDS: DUONEB 0.5-3 MG/3 ml Neb IH ONE (18:38)
[2024-12-19] MEDS: VANCOMYCIN 1 GRAM/200 ML BAG 1 GM/200 ML PIGGYBACK IV SCH (19:46)
[2024-12-19] MEDS: NORCO 5/325 MG PO PRN (21:47)
[2024-12-20 04:39] LABS: Hematocrit 30.8 % (40.1-51.0); Hemoglobin 9.6 g/dL (13.7-17.5); Mean Corpuscular Hemoglobin 30.9 pg (25.7-32.2); Mean Corpuscular Hgb Concent. 31.2 g/dL (32.3-36.5); Platelet Count 121 x10^3/uL (163-337); Red Blood Count 3.11 x10^6/uL (4.63-6.08); White Blood Count 20.6 x10^3/uL (4.23-9.07)
[2024-12-20 04:55] LABS: Calcium 8.2 mg/dL (8.4-10.2); Carbon Dioxide 29.0 mmol/L (22-30); Creatinine 1 1.1 mg/dL (0.66-1.25); EST GLOMERULAR FILTRATION RATE 70.0 ML/MIN; Glucose 188.0 mg/dL (74-106); Potassium 4.5 mmol/L (3.5-5.1); SGOT/AST 82.0 U/L (17-59); SGPT/ALT 26.0 U/L (0-50); Total Protein 5.4 g/dL (6.3-8.2)
--- NOTE | 2024-12-20 05:28 | PCM.NOTE ---
Date and Time: 12/20/24 0515 Subjective Assessment: Mr. Ruiz is a 74-year-old obese male with a pmhx of coronary artery disease, hypertension, insulin-dependent diabetes mellitus, asthma, prostate disease, and an implanted pacemaker/defibrillator who presented to ED 12/17/24 with multiple complaints after dinner. He noted acute onset of right lower extremity pain with ambulation associated with swelling, without fall or trauma. He also endorsed mild cough, shortness of breath, low-grade fever, and central non-radiating substernal achiness. He is not on anticoagulation therapy. On arrival, he was febrile at 100.6 F. A 12-lead EKG demonstrated sinus rhythm at 61 bpm with QTc 469 ms and no acute ischemic changes. Labs showed elevated procalcitonin, e levated D-dimer (4.34), and BNP checked in context with renal function to guide fluids. UA was negative, viral panel and monospot were negative. CT chest with contrast showed no pulmonary embolism or intrathoracic abnormality. Chest X-ray was clear. Right lower extremity venous Doppler was negative for DVT. Given localized symptoms and known foot pathology, podiatry (Dr. Quiñones) was consulted. Nuclear bone scan was arranged to evaluate suspected right foot osteomyelitis. Prior wound cultures: 11/18/24 with no growth, 08/28/24 positive for Staphylococcus aureus. Currently cultures are growing gram - ID, pending final sensitivity. Antibiotics were transitioned from meropenem to vancomycin plus cefepime/Flagyl after pharmacy review. Blood and wound cultures were ordered prior to antibiotics when feasible. IV fluids were bolused and are running at 100 mL/h. Patient developed 3+ pitting edema and fluids stopped. Overnight, the patient was found to have hyperkalemia. He was treated with patir wililam (Veltassa) 8.4 g PO 1. Repeat BMP is pending to reassess potassium and renal function. No EKG changes were noted. Potassium levels have now normalized. Patient also noted with 650ml residual following PVR. Will anchor junior. Will add lasix. Surgical intervention may be required pending imaging and podiatry reassessment. 12/19: Patient rested overnight with improved pain control, reports right foot discomfort is now tolerable. No recurrent chest pain, cough, or dyspnea. Febrile trend noted yesterday; currently afebrile. Nursing staff report adequate pain management and improved comfort with ambulation assistance. Nuclear bone scan to be completed today, with podiatry evaluating for possible surgical intervention. Wound culture returned positive for gram-negative organisms; identification pending. IV fluids discontinued in light of bilateral lower extremity pitting edema and history of CHF. Patient started on IV furosemide for volume management and metronidazole was added to broaden anaerobic coverage. Continues on vancomycin and cefepime. Podiatry remains actively involved in management and surgical planning. 12/20: Patient seen at bedside, POD#1 from right great toe amputation for osteomyelitis confirmed on bone scan. Reports pain much improved. Case reviewed with podiatry: recommend PICC placement for IV Invanz. Bone biopsy pending; wound cultures growing Serratia marcescens and Enterobacter. Renal function at baseline following Junior placement 12/19. Patient to work with PT today for mobility evaluation; dispo pending assessment (home vs SNF with IV antibiotics/rehab). - Review of Systems Constitutional: Weakness Eyes: No Symptoms Ears, Nose, & Throat: No Symptoms Respiratory: No Symptoms Cardiac: No Symptoms Abdominal/Gastrointestinal: No Symptoms Genitourinary Symptoms: No Symptoms Musculoskeletal: Joint Pain (right foot ) Skin: Cellulitis, Other (right foot s/p great toe amputation with surgical dressing CDI) Neurological: No Symptoms Psychological: No Symptoms Endocrine: No Symptoms Hematologic/Lymphatic: No Symptoms Immunological/Allergic: No Symptoms Objective Exam General Appearance: no apparent distress Neurologic Exam: alert, oriented x 3, cooperative Skin Exam: other (right foot s/p great toe amputation with surgical dressing CDI) Wound Assessment: Skin/Wound Assessment Wound/Incision Assessment Start: 12/18/24 02:08 Text: Status: Active Freq: Q6H Protocol: Document 12/19/24 17:16 [facility] (Rec: 12/19/24 17:16 [facility] [id number]) Wound/Incision Assessment Right lower outer lateral leg (proximal) Wound Assessment Shift Assessment Dressing Status Dry & Intact Drainage Amount None Drainage Odor None/Absent Surrounding Tissue Edematous Comment wrapped, dressing clean/dry/ intact remains true Right lower outer lateral leg (medial) Wound Assessment Shift Assessment Dressing Status Dry & Intact Drainage Amount None Surrounding Tissue Edematous Comment wrapped, dressing clean/dry/ intact remians true Right lower outer lateral leg (distal) Wound Assessment Shift Assessment Dressing Status Dry & Intact Drainage Amount None General Appearance Reddened Surrounding Tissue Edematous Primary Dressing adaptic Comment wrapped, dressing clean/dry/ intact remians true Top of right foot (inner) Wound Assessment Shift Assessment Wound Type Blood blister Wound Stage Non Pressure Wound Dressing Status Dry & Intact Drainage Amount None Surrounding Tissue Edematous Primary Dressing adaptic Comment wrapped, dressing clean/dry/ intact remains true Top of right foot (near 5th toe) Wound Assessment Shift Assessment Dressing Status Dry & Intact Drainage Amount None Drainage Description Purulent Surrounding Tissue Edematous Comment wrapped, dressing clean/dry/ intact remains true Right great toe Wound Assessment Shift Assessment Wound Type Pressure Ulcer Wound Stage Stage III Dressing Status Dry & Intact Drainage Amount None Comment wrapped, dressing clean/dry/ intact remains true Right Lower Leg Wound Assessment Shift Assessment Wound Type cellulitis Wound Stage Non Pressure Wound Dressing Status Dry & Intact Drainage Amount None Drainage Odor None/Absent Surrounding Tissue Edematous Comment wrapped, dressing clean/dry/ intact remains true Wound Photo Photo Taken No Eye Exam: PERRL Ears, Nose, Throat Exam: normal ENT inspection Neck Exam: normal inspection Respiratory Exam: normal breath sounds, lungs clear Cardiovascular Exam: regular rate/rhythm, normal heart sounds Gastrointestinal/Abdomen Exam: soft, normal bowel sounds Extremity Exam: amputations, swelling (BLE +3 on LLE) Back Exam: normal inspection Male Genitalia Exam: deferred Rectal Exam: deferred Objective Data Vital Signs: Vital Signs - 24 hr Temp Pulse Resp BP Pulse Ox 12/20/24 00:00 97.9 F 75 16 115/59 92 L 12/19/24 20:00 98.4 F 85 22 137/60 94 L 12/19/24 18:39 82 16 99 12/19/24 16:00 98.9 F 68 18 120/56 91 L 12/19/24 14:09 97.8 F 81 18 97/51 93 L 12/19/24 12:00 97.8 F 81 18 97/51 93 L 12/19/24 07:20 97.8 F 80 18 112/57 93 L Pain Assessment - Last Documented Pain Intensity 6 Pain Scale Used 0-10 Pain Scale Intake and Output: Intake & Output 12/17/24 12/18/24 12/19/24 12/20/24 11:59 11:59 11:59 11:59 Intake Total 280 820 950 Output Total 100 2325 800 Balance 180 -1505 150 Weight 109.8 kg 116 kg 116 kg Lab Results: Lab Results-Last 24 Hours 12/19/24 12/19/24 12/19/24 Range/Units 06:28 06:28 07:00 WBC 23.9 H (4.23-9.07) x10^3/uL RBC 3.15 L (4.63-6.08) x10^6/uL Hgb 9.7 L (13.7-17.5) g/dL Hct 31.8 L (40.1-51.0) % MCV 101.0 H (79.0-92.2) fL MCH 30.8 (25.7-32.2) pg MCHC 30.5 L (32.3-36.5) g/dL RDW 14.3 (11.6-14.4) % Plt Count 134 L (163-337) x10^3/uL MPV 10.1 (9.4-12.4) fL Sodium 129 L (135-145) mmol/L Potassium 5.1 (3.5-5.1) mmol/L Chloride 99 (98-107) mmol/L Carbon Dioxide 26 (22-30) mmol/L Anion Gap 9.0 (5-15) MEQ/L BUN 49 H (9-20) mg/dL Creatinine 1.85 H (0.66-1.25) mg/dL Estimated GFR 37.5 ML/MIN Glucose 169 H (74-106) mg/dL POC Glucometer 161 H (74 to 106) mg/dL Calcium 7.7 L (8.4-10.2) mg/dL Magnesium 2.2 (1.6-2.3) mg/dL Total Bilirubin 0.70 (0.2-1.3) mg/dL AST 80 H (17-59) U/L ALT 22 (0-50) U/L Alkaline Phosphatase 46 (38-126) U/L Serum Total Protein 5.3 L (6.3-8.2) g/dL Albumin 3.2 L (3.5-5.0) g/dL Urine Color (Yellow) Urine Appearance (Clear) Urine pH (4.6-8.0) Ur Specific [place] (1.005-1.030) Urine Protein (Negative) Urine Glucose (UA) (Negative) mg/dL Urine Ketones (Negative) Urine Blood (Negative) Urine Nitrite (Negative) Urine Bilirubin (Negative) Urine Urobilinogen (0.2) mg/dL Ur Leukocyte Esterase (Negative) U Hyaline Cast (Auto) (0-2) /LPF Urine Microscopic RBC (0-5) /HPF Urine Microscopic WBC (0-5) /HPF Ur Epithelial Cells (None Seen) /HPF Urine Bacteria (None Seen) /HPF Urine Culture Reflexed (NO) 12/19/24 12/19/24 12/19/24 Range/Units 11:36 13:14 14:02 WBC (4.23-9.07) x10^3/uL RBC (4.63-6.08) x10^6/uL Hgb (13.7-17.5) g/dL Hct (40.1-51.0) % MCV (79.0-92.2) fL MCH (25.7-32.2) pg MCHC (32.3-36.5) g/dL RDW (11.6-14.4) % Plt Count (163-337) x10^3/uL MPV (9.4-12.4) fL Sodium 131 L (135-145) mmol/L Potassium 5.2 H (3.5-5.1) mmol/L Chloride 100 (98-107) mmol/L Carbon Dioxide 25 (22-30) mmol/L Anion Gap 11.9 (5-15) MEQ/L BUN 47 H (9-20) mg/dL Creatinine 1.43 H (0.66-1.25) mg/dL Estimated GFR 51.1 ML/MIN Glucose 236 H (74-106) mg/dL POC Glucometer 191 H (74 to 106) mg/dL Calcium 7.9 L (8.4-10.2) mg/dL Magnesium (1.6-2.3) mg/dL Total Bilirubin 0.90 (0.2-1.3) mg/dL AST 97 H (17-59) U/L ALT 27 (0-50) U/L Alkaline Phosphatase 53 (38-126) U/L Serum Total Protein 5.5 L (6.3-8.2) g/dL Albumin 3.4 L (3.5-5.0) g/dL Urine Color Yellow (Yellow) Urine Appearance Clear (Clear) Urine pH 5.0 (4.6-8.0) Ur Specific [place] 1.020 (1.005-1.030) Urine Protein Trace A (Negative) Urine Glucose (UA) Negative (Negative) mg/dL Urine Ketones 15 A (Negative) Urine Blood Moderate A (Negative) Urine Nitrite Negative (Negative) Urine Bilirubin Negative (Negative) Urine Urobilinogen 0.2 (0.2) mg/dL Ur Leukocyte Esterase Negative (Negative) U Hyaline Cast (Auto) 6-10 A (0-2) /LPF Urine Microscopic RBC 3-5 (0-5) /HPF Urine Microscopic WBC 0-2 (0-5) /HPF Ur Epithelial Cells None Seen (None Seen) /HPF Urine Bacteria Few A (None Seen) /HPF Urine Culture Reflexed ORDERED SEPARATELY (NO) 12/19/24 12/19/24 12/19/24 Range/Units 15:55 16:49 23:20 WBC (4.23-9.07) x10^3/uL RBC (4.63-6.08) x10^6/uL Hgb (13.7-17.5) g/dL Hct (40.1-51.0) % MCV (79.0-92.2) fL MCH (25.7-32.2) pg MCHC (32.3-36.5) g/dL RDW (11.6-14.4) % Plt Count (163-337) x10^3/uL MPV (9.4-12.4) fL Sodium (135-145) mmol/L Potassium (3.5-5.1) mmol/L Chloride (98-107) mmol/L Carbon Dioxide (22-30) mmol/L Anion Gap (5-15) MEQ/L BUN (9-20) mg/dL Creatinine (0.66-1.25) mg/dL Estimated GFR ML/MIN Glucose (74-106) mg/dL POC Glucometer 254 H 241 H 223 H (74 to 106) mg/dL Calcium (8.4-10.2) mg/dL Magnesium (1.6-2.3) mg/dL Total Bilirubin (0.2-1.3) mg/dL AST (17-59) U/L ALT (0-50) U/L Alkaline Phosphatase (38-126) U/L Serum Total Protein (6.3-8.2) g/dL Albumin (3.5-5.0) g/dL Urine Color (Yellow) Urine Appearance (Clear) Urine pH (4.6-8.0) Ur Specific [place] (1.005-1.030) Urine Protein (Negative) Urine Glucose (UA) (Negative) mg/dL Urine Ketones (Negative) Urine Blood (Negative) Urine Nitrite (Negative) Urine Bilirubin (Negative) Urine Urobilinogen (0.2) mg/dL Ur Leukocyte Esterase (Negative) U Hyaline Cast (Auto) (0-2) /LPF Urine Microscopic RBC (0-5) /HPF Urine Microscopic WBC (0-5) /HPF Ur Epithelial Cells (None Seen) /HPF Urine Bacteria (None Seen) /HPF Urine Culture Reflexed (NO) 12/20/24 12/20/24 Range/Units 04:35 04:35 WBC 20.6 H (4.23-9.07) x10^3/uL RBC 3.11 L (4.63-6.08) x10^6/uL Hgb 9.6 L (13.7-17.5) g/dL Hct 30.8 L (40.1-51.0) % MCV 99.0 H (79.0-92.2) fL MCH 30.9 (25.7-32.2) pg MCHC 31.2 L (32.3-36.5) g/dL RDW 13.7 (11.6-14.4) % Plt Count 121 L (163-337) x10^3/uL MPV 9.1 L (9.4-12.4) fL Sodium 131 L (135-145) mmol/L Potassium 4.5 (3.5-5.1) mmol/L Chloride 100 (98-107) mmol/L Carbon Dioxide 29 (22-30) mmol/L Anion Gap 6.4 (5-15) MEQ/L BUN 40 H (9-20) mg/dL Creatinine 1.10 (0.66-1.25) mg/dL Estimated GFR 70.0 ML/MIN Glucose 188 H (74-106) mg/dL POC Glucometer (74 to 106) mg/dL Calcium 8.2 L (8.4-10.2) mg/dL Magnesium 2.2 (1.6-2.3) mg/dL Total Bilirubin 0.80 (0.2-1.3) mg/dL AST 82 H (17-59) U/L ALT 26 (0-50) U/L Alkaline Phosphatase 53 (38-126) U/L Serum Total Protein 5.4 L (6.3-8.2) g/dL Albumin 3.3 L (3.5-5.0) g/dL Urine Color (Yellow) Urine Appearance (Clear) Urine pH (4.6-8.0) Ur Specific [place] (1.005-1.030) Urine Protein (Negative) Urine Glucose (UA) (Negative) mg/dL Urine Ketones (Negative) Urine Blood (Negative) Urine Nitrite (Negative) Urine Bilirubin (Negative) Urine Urobilinogen (0.2) mg/dL Ur Leukocyte Esterase (Negative) U Hyaline Cast (Auto) (0-2) /LPF Urine Microscopic RBC (0-5) /HPF Urine Microscopic WBC (0-5) /HPF Ur Epithelial Cells (None Seen) /HPF Urine Bacteria (None Seen) /HPF Urine Culture Reflexed (NO) Radiology Exams: Radiology Procedures Category Date Time Status BONE THREE PHASE [NUCMED] Stat Exams 12/19/24 08:00 Completed CHEST 2 VIEWS (PA AND LAT) Stat Exams 12/18/24 16:31 Completed ECHO W/2D AND DOPPLER [US] Urgent Exams 12/19/24 10:06 Taken Medications: Medications Generic Name Dose Route Start Last Admin Trade Name Freq PRN Reason Stop Dose Admin Hydrocodone Bitart/Acetaminophen 1 tab 12/18/24 09:37 12/20/24 03:16 Hydrocodone/Apap 5/325 1 Tab Tablet PO 12/23/24 09:36 1 tab Q4H PRN PRN Administration PAIN Hydrocodone Bitart/Acetaminophen 1 - 2 tab 12/19/24 19:55 12/19/24 21:47 Hydrocodone/Apap 5/325 1 Tab Tablet PO 12/24/24 19:54 2 tab Q4H PRN PRN Administration PAIN Albuterol/Ipratropium 3 ml 12/18/24 19:49 12/18/24 19:59 Ipratropium/Albuterol Sulfate 3 Ml Ampul.Neb IH 01/17/25 19:48 3 ml Q4HPRN PRN Administration SHORTNESS OF BREATH/WHEEZING Albuterol/Ipratropium 3 ml 12/19/24 18:36 12/19/24 18:38 Ipratropium/Albuterol Sulfate 3 Ml Ampul.Neb IH 12/19/24 18:37 3 ml STAT ONE Administration Amlodipine/Benazepril HCl 2 cap 12/18/24 14:30 12/19/24 10:15 Amlodipine/Benzapril 5mg/10mg Capsule PO 01/17/25 14:29 2 cap DAILY DL Administration Calcium Carbonate/Glycine 750 mg 12/18/24 22:00 12/19/24 21:48 Calcium Carbonate 750 Mg 750 Mg Tab.Chew PO 01/17/25 21:59 750 mg BID DL Administration Carvedilol 25 mg 12/18/24 14:30 12/19/24 21:47 Carvedilol 12.5 Mg Tablet PO 01/17/25 14:29 25 mg BID DL Administration Cholecalciferol 2,000 unit 12/18/24 14:30 12/19/24 10:14 Cholecalciferol (Vitamin D3) 1000 Unit Tablet PO 01/17/25 14:29 2,000 unit DAILY DL Administration Device 1 12/20/24 11:30 Therapuetic Drug Level Monitor Each IJ 12/20/24 11:31 1XONLY ONE Famotidine 40 mg 12/18/24 14:30 12/19/24 10:15 Famotidine 20 Mg Tablet PO 01/17/25 14:29 40 mg DAILY DL Administration Finasteride 5 mg 12/18/24 14:30 12/19/24 10:16 Finasteride 5 Mg Tablet PO 01/17/25 14:29 5 mg DAILY DL Administration Folic Acid 1 mg 12/18/24 14:30 12/19/24 10:15 Folic Acid 1 Mg Tablet PO 01/17/25 14:29 1 mg DAILY DL Administration Furosemide 40 mg 12/19/24 10:15 12/19/24 21:48 Furosemide 40 Mg/4 Ml Vial IV 01/18/25 10:14 40 mg Q12HT DL Administration Gabapentin 300 mg 12/18/24 14:30 12/19/24 21:48 Gabapentin 300 Mg Capsule PO 01/17/25 14:29 300 mg BID DL Administration Hydromorphone HCl 0.5 mg 12/18/24 09:37 12/19/24 19:43 Hydromorphone 1 Mg/1ml Inj IV 12/23/24 09:36 0.5 mg Q4H PRN PRN Administration PAIN Cefepime HCl 1 g/ Sodium 100 mls @ 200 mls/hr 12/19/24 09:00 12/19/24 17:08 Chloride IV 01/18/25 08:59 200 mls/hr Q12H DL Administration Vancomycin HCl 1 gm in 200 mls @ 133.333 mls/hr 12/19/24 18:00 12/19/24 19:46 Vancomycin 1 Gram/200 Ml Bag IV 01/18/25 17:59 133.333 mls/hr Q18H DL Administration Insulin Glargine 20 unit 12/19/24 10:00 12/19/24 16:05 Insulin Glargine 1 Unit SQ 01/18/25 09:59 20 unit QAM DL Administration Insulin Human Lispro 0 unit 12/18/24 18:19 12/18/24 22:18 Insulin Lispro 1 Unit SQ 01/17/25 18:18 6 unit UD PRN Administration HYPERGLYCEMIA Insulin Human Lispro 5 unit 12/19/24 08:00 12/19/24 16:14 Insulin Lispro 1 Unit SQ 01/18/25 07:59 Not Given TIDWM DL Magnesium Oxide 400 mg 12/18/24 14:30 12/19/24 21:48 Magnesium Oxide 400 Mg Tablet PO 01/17/25 14:29 400 mg BID DL Administration Metronidazole 500 mg 12/19/24 12:00 12/20/24 03:16 Metronidazole 500 Mg Tablet PO 01/18/25 11:59 500 mg Q6HT DL Administration Miscellaneous Information 1 each 12/18/24 12:00 Medication Intervention 1 Each Each MC 01/17/25 11:59 .RT TO CHECK DL Miscellaneous Information 1 each 12/18/24 12:00 Medication Intervention 1 Each Each MC 01/17/25 11:59 .RN TO CHECK DL Multivitamins Therapeutic 1 tab 12/18/24 22:00 12/19/24 21:48 Multivitamins,Therapeutic 1 Tab Tab PO 01/17/25 21:59 1 tab HS DL Administration Ondansetron HCl 4 mg 12/18/24 02:07 Ondansetron Hcl 4 Mg/2 Ml Vial IV 01/17/25 02:06 Q6H PRN PRN NAUSEA/VOMITING Tamsulosin HCl 0.4 mg 12/18/24 22:00 12/19/24 21:48 Tamsulosin Hcl 0.4 Mg Cap PO 01/17/25 21:59 0.4 mg HS DL Administration Vitamin E 400 units 12/18/24 14:30 12/19/24 10:17 Vitamin E 400 Units 400 Units Capsule PO 01/17/25 14:29 400 units DAILY DL Administration Zolpidem Tartrate 10 mg 12/18/24 22:00 12/19/24 21:46 Zolpidem Tartrate 10 Mg Tablet PO 01/17/25 21:59 10 mg HS DL Administration Discontinued Medications Generic Name Dose Route Start Last Admin Trade Name Freq PRN Reason Stop Dose Admin Acetaminophen 650 mg 12/17/24 22:39 12/17/24 22:46 Acetaminophen 325 Mg Tablet PO 12/17/24 22:40 650 mg STAT ONE Administration Acetaminophen Confirm 12/17/24 22:46 Acetaminophen 325 Mg Tablet Administered 12/17/24 22:47 Dose 650 mg .ROUTE .STK-MED ONE Hydrocodone Bitart/Acetaminophen 1 tab 12/17/24 23:30 12/17/24 23:58 Hydrocodone/Apap 5/325 1 Tab Tablet PO 12/17/24 23:31 1 tab STAT ONE Administration Hydrocodone Bitart/Acetaminophen Confirm 12/17/24 23:58 Hydrocodone/Apap 5/325 1 Tab Tablet Administered 12/17/24 23:59 Dose 1 tab .ROUTE .STK-MED ONE Albuterol/Ipratropium Confirm 12/18/24 19:51 Ipratropium/Albuterol Sulfate 3 Ml Ampul.Neb Administered 12/18/24 19:52 Dose 3 ml IH .STK-MED ONE Amlodipine/Benazepril HCl 2 cap 12/18/24 12:00 12/18/24 14:37 Amlodipine/Benzapril 5mg/10mg Capsule PO 01/17/25 11:59 Not Given DAILY DL Amlodipine/Benazepril HCl Confirm 12/18/24 13:47 Amlodipine/Benzapril 5mg/10mg Capsule Administered 12/18/24 13:48 Dose 2 cap .ROUTE .STK-MED ONE Bupivacaine HCl Confirm 12/19/24 17:51 Bupivacaine Hcl/Pf 150 Mg/30 Ml Vial Administered 12/19/24 17:52 Dose 150 mg .ROUTE .STK-MED ONE Calcium Carbonate/Glycine Confirm 12/18/24 21:22 Calcium Carbonate 750 Mg 750 Mg Tab.Chew Administered 12/18/24 21:23 Dose 750 mg .ROUTE .STK-MED ONE Carvedilol 25 mg 12/18/24 12:00 12/18/24 14:36 Carvedilol 12.5 Mg Tablet PO 01/17/25 11:59 Not Given BID [facility] Carvedilol Confirm 12/18/24 13:46 Carvedilol 12.5 Mg Tablet Administered 12/18/24 13:47 Dose 25 mg .ROUTE .STK-MED ONE Carvedilol Confirm 12/18/24 21:22 Carvedilol 12.5 Mg Tablet Administered 12/18/24 21:23 Dose 12.5 mg .ROUTE .STK-MED ONE Cholecalciferol 2,000 unit 12/18/24 12:00 12/18/24 14:38 Cholecalciferol (Vitamin D3) 1000 Unit Tablet PO 01/17/25 11:59 Not Given DAILY [facility] Cholecalciferol Confirm 12/18/24 13:47 Cholecalciferol (Vitamin D3) 1000 Unit Tablet Administered 12/18/24 13:48 Dose 2,000 unit PO .STK-MED ONE Device 1 12/20/24 09:30 Therapuetic Drug Level Monitor Each IJ 12/20/24 09:31 1XONLY ONE Etomidate Confirm 12/19/24 17:18 Etomidate 20 Mg/10 Ml Amp Administered 12/19/24 17:19 Dose 20 mg IV .STK-MED ONE Famotidine 40 mg 12/18/24 12:00 12/18/24 14:38 Famotidine 20 Mg Tablet PO 01/17/25 11:59 Not Given DAILY [facility] Famotidine Confirm 12/18/24 13:48 Famotidine 20 Mg Tablet Administered 12/18/24 13:49 Dose 40 mg .ROUTE .STK-MED ONE Fentanyl Citrate Confirm 12/19/24 17:23 Fentanyl Citrate 100 Mcg/2 Ml* Vial Administered 12/19/24 17:24 Dose 100 mcg .ROUTE .STK-MED ONE Fentanyl Citrate Confirm 12/19/24 18:33 Fentanyl Citrate 100 Mcg/2 Ml* Vial Administered 12/19/24 18:34 Dose 100 mcg .ROUTE .STK-MED ONE Finasteride 5 mg 12/18/24 12:00 12/18/24 14:38 Finasteride 5 Mg Tablet PO 01/17/25 11:59 Not Given DAILY DL Folic Acid 1 mg 12/18/24 12:00 12/18/24 14:37 Folic Acid 1 Mg Tablet PO 01/17/25 11:59 Not Given DAILY DL Folic Acid Confirm 12/18/24 13:47 Folic Acid 1 Mg Tablet Administered 12/18/24 13:48 Dose 1 mg .ROUTE .STK-MED ONE Gabapentin 300 mg 12/18/24 12:00 12/18/24 14:37 Gabapentin 300 Mg Capsule PO 01/17/25 11:59 Not Given BID [facility] Gabapentin Confirm 12/18/24 13:46 Gabapentin 300 Mg Capsule Administered 12/18/24 13:47 Dose 300 mg .ROUTE .STK-MED ONE Gabapentin Confirm 12/18/24 21:22 Gabapentin 300 Mg Capsule Administered 12/18/24 21:23 Dose 300 mg .ROUTE .STK-MED ONE Hydromorphone HCl 0.5 mg 12/18/24 04:17 12/18/24 04:31 Hydromorphone 1 Mg/1ml Inj IV 12/18/24 04:18 0.5 mg STAT ONE Administration Hydromorphone HCl 0.5 mg 12/18/24 10:25 12/18/24 11:35 Hydromorphone 1 Mg/1ml Inj IV 12/18/24 10:26 Not Given STAT ONE Hydromorphone HCl Confirm 12/19/24 18:34 Hydromorphone Hcl/Pf 0.5 Mg/0.5 Ml Syringe Administered 12/19/24 18:35 Dose 0.5 mg .ROUTE .STK-MED ONE Sodium Chloride 1,000 mls @ 100 mls/hr 12/17/24 22:15 12/18/24 02:08 Sodium Chloride 0.9% 1000 Ml IV 01/16/25 22:14 Infused .Q10H DL Infusion Meropenem 1 gm/ Sodium 100 mls @ 200 mls/hr 12/18/24 01:52 12/18/24 01:56 Chloride IV 12/18/24 02:21 200 mls/hr STAT ONE 200 mls/hr Administration Sodium Chloride 1,000 mls @ 999 mls/hr 12/18/24 01:52 12/18/24 02:29 Sodium Chloride 0.9% 1000 Ml IV 12/18/24 02:52 0 mls/hr .Q1H1M STA Infusion Sodium Chloride Confirm 12/18/24 01:55 Sodium Chloride 0.9% Administered 12/18/24 01:56 Dose 100 mls @ ud .ROUTE .STK-MED ONE Sodium Chloride Confirm 12/17/24 22:20 Sodium Chloride 0.9% 1000 Ml Administered 12/17/24 22:21 Dose 1,000 mls @ ud .ROUTE .STK-MED ONE Sodium Chloride Confirm 12/18/24 01:54 Sodium Chloride 0.9% 1000 Ml Administered 12/18/24 01:55 Dose 1,000 mls @ ud .ROUTE .STK-MED ONE Meropenem 1 gm/ Sodium 100 mls @ 200 mls/hr 12/18/24 06:00 Chloride IV 12/21/24 05:59 Q8HT DL Sodium Chloride 1,000 mls @ 100 mls/hr 12/18/24 02:07 12/19/24 07:40 Sodium Chloride 0.9% 1000 Ml IV 01/17/25 02:06 Not Given .Q10H DL Meropenem 1 gm/ Sodium 100 mls @ 200 mls/hr 12/18/24 10:00 Chloride IV 12/21/24 09:59 Q8H DL Cefepime HCl 2 g/ Sodium 100 mls @ 200 mls/hr 12/18/24 09:00 12/18/24 21:34 Chloride IV 01/17/25 08:59 200 mls/hr Q12H DL Administration Vancomycin HCl 1 gm in 200 mls @ 133.333 mls/hr 12/18/24 10:00 12/18/24 21:35 Vancomycin 1 Gram/200 Ml Bag IV 01/17/25 09:59 133.333 mls/hr Q12HT DL Administration Sodium Chloride 1,000 mls @ 75 mls/hr 12/19/24 08:15 12/19/24 08:24 Sodium Chloride 0.9% 1000 Ml IV 01/18/25 08:14 75 mls/hr .[id number] DL Administration Insulin Human Lispro 0 unit 12/18/24 08:01 12/18/24 17:14 Insulin Lispro 1 Unit SQ 01/17/25 08:00 5 unit UD PRN Administration HYPERGLYCEMIA Insulin Human Regular 0 unit 12/18/24 02:07 Insulin Regular, Human 1 Unit SQ 01/17/25 02:06 UD PRN HYPERGLYCEMIA Lidocaine HCl Confirm 12/19/24 17:51 Lidocaine Hcl/Pf 1 % 30 Ml Pf Sdv Administered 12/19/24 17:52 Dose 30 ml IJ .STK-MED ONE Magnesium Oxide 400 mg 12/18/24 12:00 12/18/24 14:37 Magnesium Oxide 400 Mg Tablet PO 01/17/25 11:59 Not Given BID DL Magnesium Oxide Confirm 12/18/24 13:48 Magnesium Oxide 400 Mg Tablet Administered 12/18/24 13:49 Dose 400 mg .ROUTE .STK-MED ONE Magnesium Oxide Confirm 12/18/24 21:24 Magnesium Oxide 400 Mg Tablet Administered 12/18/24 21:25 Dose 400 mg .ROUTE .STK-MED ONE Meropenem Confirm 12/18/24 01:54 Meropenem 1 Gm Vial Administered 12/18/24 01:55 Dose 1 gm IV .STK-MED ONE Methotrexate 25 mg 12/24/24 10:00 Methotrexate Sodium 2.5 Mg Tablet PO 01/23/25 09:59 Q7D DL Midazolam HCl Confirm 12/19/24 17:34 Midazolam Hcl 2 Mg/2 Ml Vial Administered 12/19/24 17:35 Dose 2 mg .ROUTE .STK-MED ONE Morphine Sulfate 2 mg 12/18/24 01:16 12/18/24 01:19 Morphine Sulfate 2 Mg/Ml Inj IV 12/18/24 01:17 2 mg STAT ONE Administration Morphine Sulfate Confirm 12/18/24 01:18 Morphine Sulfate 2 Mg/Ml Inj Administered 12/18/24 01:19 Dose 2 mg .ROUTE .STK-MED ONE Morphine Sulfate 4 mg 12/18/24 02:07 Morphine Sulfate 4 Mg/Ml Injection IV 12/23/24 02:06 Q4H PRN PRN SEVERE PAIN Multivitamins Therapeutic Confirm 12/18/24 21:23 Multivitamins,Therapeutic 1 Tab Tab Administered 12/18/24 21:24 Dose 1 tab .ROUTE .STK-MED ONE Non-Formulary Medication 1 each 12/18/24 08:30 Pharmacy Dose Request: Vancomycin 1 Each IV 01/17/25 08:29 [facility] Non-Formulary Medication 1 each 12/18/24 08:16 12/19/24 07:37 Pharmacy Dosing Request 12/18/24 08:17 1 each STAT ONE Administration Non-Formulary Medication 1 each 12/19/24 09:55 12/19/24 10:17 Pharmacy Dosing Request 12/19/24 09:56 1 each STAT ONE Administration Non-Formulary Medication 1 each 12/19/24 10:37 12/19/24 10:55 Pharmacy Dosing Request 12/19/24 10:38 1 each STAT ONE Administration Ondansetron HCl 4 mg 12/18/24 01:16 12/18/24 01:19 Ondansetron Hcl 4 Mg/2 Ml Vial IV 12/18/24 01:17 4 mg STAT ONE Administration Ondansetron HCl Confirm 12/18/24 01:18 Ondansetron Hcl 4 Mg/2 Ml Vial Administered 12/18/24 01:19 Dose 4 mg .ROUTE .STK-MED ONE Patiromer 8.4 gm 12/18/24 18:41 12/18/24 21:36 Patiromer Calcium Sorbitex 8.4 Gm Powd.Pack PO 12/18/24 18:42 8.4 gm STAT STA Administration Patiromer Confirm 12/18/24 21:26 Patiromer Calcium Sorbitex 8.4 Gm Powd.Pack Administered 12/18/24 21:27 Dose 8.4 gm PO .STK-MED ONE Phenylephrine HCl Confirm 12/19/24 17:21 Phenylephrine 10 Mg/Ml Vial Administered 12/19/24 17:22 Dose 10 mg .ROUTE .STK-MED ONE Prednisone 5 mg 12/18/24 12:00 12/18/24 14:37 Prednisone 5 Mg Tablet PO 01/17/25 11:59 Not Given DAILY DL Prednisone 5 mg 12/18/24 14:30 12/19/24 10:15 Prednisone 5 Mg Tablet PO 01/17/25 14:29 5 mg DAILY DL Administration Prednisone Confirm 12/18/24 13:47 Prednisone 5 Mg Tablet Administered 12/18/24 13:48 Dose 5 mg .ROUTE .STK-MED ONE Propofol Confirm 12/19/24 17:19 Propofol 200 Mg/20 Ml Vial Administered 12/19/24 17:20 Dose 200 mg IV .STK-MED ONE Tamsulosin HCl Confirm 12/18/24 21:23 Tamsulosin Hcl 0.4 Mg Cap Administered 12/18/24 21:24 Dose 0.4 mg .ROUTE .STK-MED ONE Vitamin E 400 units 12/18/24 12:00 12/18/24 14:38 Vitamin E 400 Units 400 Units Capsule PO 01/17/25 11:59 Not Given DAILY DL Zolpidem Tartrate Confirm 12/18/24 21:22 Zolpidem Tartrate 10 Mg Tablet Administered 12/18/24 21:23 Dose 10 mg .ROUTE .STK-MED ONE Multi-Disciplinary Progress Notes: Multi-Disciplinary Progress Notes 12/19/24 12:07 Case Management Note by Anay Wilson NO CHANGE IN DC PLANS AT THIS TIME Initialized on 12/19/24 12:07 - END OF NOTE 12/19/24 10:42 Pharmacy Note by Jimmy Stafford Pharmacy renal dosing review. Maxipime and Vancomycin have already been adjusted. Recommend decreasing Methotrexate dose by 50% if creatinine is still high when his next dose is due. All other meds look ok. Initialized on 12/19/24 10:42 - END OF NOTE 12/19/24 08:24 Pharmacy Note by Jimmy Stafford Creatinine worse at 1.85. Will decrease Maxipime to 1gm dose and change Vancomycin to q18h frequency. Initialized on 12/19/24 08:24 - END OF NOTE Assessment/Plan (1) Sepsis Current Visit: Yes Status: Acute Assessment & Plan: -Evidence: fever, WBC at 14.9 on admission up to 17.9, elevated lactate/procalcitonin elevation, source of infection cellulitis right foot - history of chronic foot issues, prior S. aureus culture -Doppler RLE negative for DVT - negative alternative workup (UA, chest imaging). -Continue empiric vancomycin + cefepime -Blood, wound, and bone cultures (possible with surgical intervention if needed) pending . -Podiatry following, discussed case -Nuclear bone scan pending; podiatry evaluating for surgical intervention. -Trend inflammatory markers, WBC, lactate- lactate now WNL -Fluids dcd due to BLE edema- -Daily renal monitoring for antibiotic dosing. 12/19/24: -WBC reviewed and at 23.9>17.9>14.9 -Continue vanc/cefepime/add flagyl- renally dosed -Wound cultures growing gram - pending final sensitivity -Bone scan pending -Podiatry following - surgical eval pending bone scan results -Lactic now WNL 12/20 -WBC reviewed and improved at 20.3<23.9 -Discontinue Vanc/Cefepime/Flagyl- Continue Invanz per podiatry recs -Wound culture with Serratia marcescens and enterobactor -Bone biopsy pending -Positive three-phase bone scan exam favoring right great toe osteomyelitis. -Patient is PODS #1 right great toe amputation- podiatry following -PT eval for continue rehab, wound care, and IV abx- -CM working on placement (2) Cellulitis of right leg Current Visit: Yes Status: Acute Assessment & Plan: -see sepsis Code(s): L03.115 - CELLULITIS OF RIGHT LOWER LIMB (3) Osteomyelitis of right foot Current Visit: Yes Status: Acute Assessment & Plan: -Positive three-phase bone scan exam favoring right great toe osteomyelitis. -Patient is PODS #1 right great toe amputation- podiatry following -see sepsis above for plan Code(s): M86.9 - OSTEOMYELITIS, UNSPECIFIED (4) Hyperkalemia Current Visit: Yes Status: Acute Assessment & Plan: - potassium level at 5.8 12/19-patient given [place] -tele -monitor renal/lytes daily -Repeat potassium reviewed and now wnl at 5.1- trend daily 12/20: -potassium reviewed at 4.5 and stable -hold benazepril Code(s): E87.5 - HYPERKALEMIA Hyponatremia -Improved- now at 131-trend (5) Edema of right lower extremity Current Visit: Yes Status: Acute Assessment & Plan: -localized swelling/pain, negative Doppler. -Supportive care: leg elevation, pain control (acetaminophen). -Daily exams for erythema, warmth, or abscess development. -See sepsis for cellulitis/osteo plan -compression dressing to RLE 12/20: Continue lasix 40mg bid Code(s): R60.0 - LOCALIZED EDEMA (6) Chest pain Current Visit: Yes Status: Acute Assessment & Plan: -substernal achiness, non-radiating, normal EKG, no ischemia. -Trend troponins to exclude ACS -negative mild but on trop number 2 but 3rd troponin WNL -chest pain resolved -Telemetry monitoring due to CAD and device in place. -If recurrent or progressive symptoms, repeat EKG and consider cardiology input. Code(s): R07.9 - CHEST PAIN, UNSPECIFIED (7) CAD (coronary artery disease) Current Visit: Yes Status: Acute Assessment & Plan: -Continue home meds (statin, aspirin, beta-abraham if prescribed). -Monitor for arrhythmias on telemetry. -hold amlodipine/albert Code(s): I25.10 - ATHSCL HEART DISEASE OF [place] CORONARY ARTERY W/O ANG PCTRS (8) HTN (hypertension) Current Visit: Yes Status: Acute Assessment & Plan: -Resume home antihypertensives if stable; hold benazapril 2/2 hyperkalemia/WILDA -can resume amlodipine - decrease dose to 5mg Code(s): I10 - ESSENTIAL (PRIMARY) HYPERTENSION (9) Diabetes mellitus with insulin therapy Current Visit: Yes Status: Acute Assessment & Plan: -ADA diet -Resume SSI/basal/ bolus insulin -A1c 6.31 good control Code(s): E11.9 - TYPE 2 DIABETES MELLITUS WITHOUT COMPLICATIONS; Z79.4 - [employer]ER (CURRENT) USE OF INSULIN (10) Asthma Current Visit: Yes Status: Acute Assessment & Plan: -Continue inhalers; monitor for bronchospasm Code(s): J45.909 - UNSPECIFIED ASTHMA, UNCOMPLICATED (11) BPH (benign prostatic hyperplasia) Current Visit: Yes Status: Acute Assessment & Plan: -resume home meds; monitor for retention. 12/20: -Continue junior cath- will discharge with cath- needs urology follow up Code(s): N40.0 - BENIGN PROSTATIC HYPERPLASIA WITHOUT LOWER URINRY TRACT SYMP (12) Obesity Current Visit: Yes Status: Acute Assessment & Plan: -Advised diet and exercise Code(s): E66.9 - OBESITY, UNSPECIFIED (13) Urinary retention Current Visit: Yes Status: Acute Assessment & Plan: -PVR with > 600mls retained x 2 -Graham junior cath Code(s): R33.9 - RETENTION OF URINE, UNSPECIFIED (14) WILDA (acute kidney injury) Current Visit: Yes Status: Acute Assessment & Plan: -Creatinine increased to 1.85 (baseline WNL), patient with BLE edema, recent contrast exposure, sepsis, and on nephrotoxic antibiotics (vancomycin, cefepime). -Urine output with noted retention > 600mls PVR - junior placed -Hold maintenance IV fluids; trial IV furosemide for volume overload, reassess response -Strict I/O, daily weights. -Renally dose all meds -Consider nephrology consult if creatinine continues to rise, oliguria/anuria develops, or electrolyte/acidbase complications worsen. 12/20/24: -Creat reviewed at 1.10 -continue lasix ; hold IVF -Monitor renal/lytes daily VTE: pending podiatry recs PPI: protonix Dispo: 2-3 days Code status: Full Code Plan of care time spent > 45 mins Code(s): N17.9 - ACUTE KIDNEY FAILURE, UNSPECIFIED (2) Cellulitis of right leg Current Visit: Yes Status: Acute Code(s): L03.115 - CELLULITIS OF RIGHT LOWER LIMB (3) Osteomyelitis of right foot Current Visit: Yes Status: Acute Code(s): M86.9 - OSTEOMYELITIS, UNSPECIFIED (4) Hyperkalemia Current Visit: Yes Status: Acute Code(s): E87.5 - HYPERKALEMIA (5) Edema of right lower extremity Current Visit: Yes Status: Acute Code(s): R60.0 - LOCALIZED EDEMA (6) Chest pain Current Visit: Yes Status: Acute Code(s): R07.9 - CHEST PAIN, UNSPECIFIED (7) CAD (coronary artery disease) Current Visit: Yes Status: Acute Code(s): I25.10 - ATHSCL HEART DISEASE OF [place] CORONARY ARTERY W/O ANG PCTRS (8) HTN (hypertension) Current Visit: Yes Status: Acute Code(s): I10 - ESSENTIAL (PRIMARY) HYPERTENSION (9) Diabetes mellitus with insulin therapy Current Visit: Yes Status: Acute Code(s): E11.9 - TYPE 2 DIABETES MELLITUS WITHOUT COMPLICATIONS; Z79.4 - [employer] (CURRENT) USE OF INSULIN (10) Asthma Current Visit: Yes Status: Acute Code(s): J45.909 - UNSPECIFIED ASTHMA, UNCOMPLICATED (11) BPH (benign prostatic hyperplasia) Current Visit: Yes Status: Acute Code(s): N40.0 - BENIGN PROSTATIC HYPERPLASIA WITHOUT LOWER URINRY TRACT SYMP (12) Obesity Current Visit: Yes Status: Acute Code(s): E66.9 - OBESITY, UNSPECIFIED (13) Urinary retention Current Visit: Yes Status: Acute Code(s): R33.9 - RETENTION OF URINE, UNSPECIFIED (14) WILDA (acute kidney injury) Current Visit: Yes Status: Acute Code(s): N17.9 - ACUTE KIDNEY FAILURE, UNSPECIFIED
[2024-12-20 07:20] LABS: BAND 1 % (0.0-2.0); Total Cells Counted 100
[2024-12-20] MEDS: NORVASC 5 MG PO SCH (09:06)
[2024-12-20] MEDS ORDERED: TROUGH DRUG LEVELS IJ ONE (09:30)
--- NOTE | 2024-12-20 11:08 | PCM.CONS ---
Podiatry HPI - Consult Date of Consultation Date: 12/20/24 Reason for Consult: Postop visit for right first toe amputation with abductor hallucis muscle flap and delayed primary closure Consulting Provider: DAVID LUCAS NP - [facility] History of Present Illness: is a 74 year old male. Heri is a pleasant male with past medical history of coronary artery disease, hypertension, insulin-dependent diabetes mellitus, asthma, prostate disease, and implanted pacemaker defibrillator who is status post 1 day of right hallux amputation at the level of the metatarsophalangeal joint with abductor hallucis muscle flap and delayed primary closure of wound to the plantar aspect of the right foot. At this time he reports mild pain at the surgical site. He is currently being treated for cellulitis/sepsis and denies any symptoms consistent with chest pain, shortness of breath, nausea, vomiting, or diarrhea. Medications & Allergies Home Medications: Home Medication List Acetaminophen [Tylenol Extra Strength] 500 mg PO Q6H PRN 10/14/17 [History Confirmed 12/18/24] Amlodipine Besylate/Benazepril [Lotrel 10-20 mg Capsule] 1 each PO DAILY 10/14/17 [History Confirmed 12/18/24] Aspirin 81 mg PO DAILY 10/14/17 [History Confirmed 12/18/24] Cholecalciferol (Vitamin D3) [Vitamin D] 2,000 unit PO DAILY 10/14/17 [History Confirmed 12/18/24] Furosemide 20 mg [Lasix 20 mg] 40 mg PO DAILY 10/14/17 [History Confirmed 12/18/24] Magnesium Oxide 400 mg [Mag-Ox 400] 400 mg PO BID 10/14/17 [History Confirmed 12/18/24] Multivitamin [Multivitamins] 1 each PO HS 10/14/17 [History Confirmed 12/18/24] Tamsulosin HCl [Flomax] 0.4 mg PO HS 10/14/17 [History Confirmed 12/18/24] Vitamin E 400 unit PO DAILY 10/14/17 [History Confirmed 12/18/24] Zolpidem Tartrate 10 mg [Ambien 10 MG] 10 mg PO HS 10/14/17 [History Confirmed 12/18/24] carvediloL [Coreg] 25 mg PO BID 10/14/17 [History Confirmed 12/18/24] Famotidine [Pepcid] 40 mg PO DAILY 07/13/18 [History Confirmed 12/18/24] Insulin NPH/Reg 70/30 [Novolin 70/30] 40 unit SQ UD 07/13/18 [History Confirmed 12/18/24] Fluticasone/Vilanterol [Breo Ellipta 200-25 Mcg INH] See Rx Instructions .ROUTE .COMPLEX 05/31/22 [History Confirmed 12/18/24] Gabapentin [Neurontin] 300 mg PO BID 05/31/22 [History Confirmed 12/18/24] Eplerenone 25 mg PO DAILY 12/17/24 [History Confirmed 12/18/24] Finasteride 5 mg [Proscar 5 MG] 5 mg PO DAILY 12/17/24 [History Confirmed 12/18/24] Folic Acid 1 mg [Folate 1 mg] 1 mg PO DAILY 12/17/24 [History Confirmed 12/18/24] Methotrexate Sodium 2.5 mg [Trexall 2.5 mg] 2.5 mg PO UD 12/17/24 [History Confirmed 12/18/24] Prednisone 10 mg [Deltasone 10 mg] 5 mg PO DAILY 12/17/24 [History Confirmed 12/18/24] Tocilizumab [Actemra Actpen] 1 mg SQ WEEKLY 12/17/24 [History Confirmed ] Allergies/Adverse Reactions: Allergies Allergy/AdvReac Type Severity Reaction Status Date / Time tizanidine Allergy Severe Anaphylactic Verified 12/18/24 02:43 Reaction moxifloxacin [From Avelox] Allergy Mild Fainting Verified 12/18/24 02:43 midazolam [From Versed] AdvReac Irregular Verified 12/18/24 02:43 Heart Beat Penicillins AdvReac Hives Verified 12/18/24 02:43 spironolactone AdvReac Irregular Verified 12/18/24 02:43 [From Aldactone] Heart Beat - Past Medical History Past Medical History: Yes Neurological History: No Pertinent History ENT History: Cataracts Cardiac History: High Cholesterol, Hypertension Respiratory History: Asthma Endocrine Medical History: No Pertinent History Musculoskelatal History: No Pertinent History GI Medical History: No Pertinent History History: No Pertinent History Pyscho-Social History: No Pertinent History Male Reproductive Disorders: No Pertinent History Comment: PMH: PSH: - Past Surgical History Past Surgical History: Yes Neuro Surgical History: No Pertinent History Cardiac History: Cardiac Catheterization, Internal Defibrillator, Pacemaker Respiratory Surgery: No Pertinent History GI Surgical History: Other Genitourinary Surgical Hx: Other Musculskeletal Surgical Hx: Joint Replacement, Orthopedic Surgery Male Surgical History: No Pertinent History Other Surgical History: CARPAL TUNNEL, CHYLOUS MESENTERY CYST (partial small intestine removed), KIDNEY STONE, RTK, R ankle fx, Significant Family History: no pertinent family hx - Social History Smoking Status: Never smoker Exposure to second hand smoke: No Alcohol: None Drug Use: none - Social Determinants of Health Will the patient participate in the screening: Yes Do you worry about a steady place to live?: No Do you have any problems with any of the following?: No known problems In the past 12 months,have you had to go without utilities?: No Have you or anyone in your house had to go without enough: No Transportation Issues: No Has anyone in your support network made you feel unsafe?: No Does the patient want assistance with any of the above?: No Physical Exam - General General Appearance: mild distress - Vascular Peripheral Pulses: Posterior tibialis: 1+, Dorsalis-Pedis: 2+ Capillary Refill Time: < 3 seconds Edema Degree: 2+ (The postop dressing was taken down to the level of the surgical incision. Surgical incisions intact with sutures in place and no signs of surgical dehiscence, purulent discharge, or malodor. Dorsalis pedis +2 and posterior tibialis +1 with cap refill less than 3 seconds. +2 pitting edema noted weaver) - Narrative Narrative Physical Exam: Podiatry Physical Exam Results - Labs Lab/Micro Results: Lab Results-Last 24 Hours 12/19/24 12/19/24 12/19/24 Range/Units 11:36 13:14 14:02 WBC (4.23-9.07) x10^3/uL RBC (4.63-6.08) x10^6/uL Hgb (13.7-17.5) g/dL Hct (40.1-51.0) % MCV (79.0-92.2) fL MCH (25.7-32.2) pg MCHC (32.3-36.5) g/dL RDW (11.6-14.4) % Plt Count (163-337) x10^3/uL MPV (9.4-12.4) fL Segmented Neutrophils (34.0-67.9) % Band Neutrophils (0.0-2.0) % Lymphocytes (Manual) (21.8-53.1) % Monocytes (Manual) (5.3-12.2) % Eosinophils (Manual) (0.8-7.0) % Hypochromia Platelet Estimate (NORMAL) RBC Morphology Sodium 131 L (135-145) mmol/L Potassium 5.2 H (3.5-5.1) mmol/L Chloride 100 (98-107) mmol/L Carbon Dioxide 25 (22-30) mmol/L Anion Gap 11.9 (5-15) MEQ/L BUN 47 H (9-20) mg/dL Creatinine 1.43 H (0.66-1.25) mg/dL Estimated GFR 51.1 ML/MIN Glucose 236 H (74-106) mg/dL POC Glucometer 191 H (74 to 106) mg/dL Calcium 7.9 L (8.4-10.2) mg/dL Magnesium (1.6-2.3) mg/dL Total Bilirubin 0.90 (0.2-1.3) mg/dL AST 97 H (17-59) U/L ALT 27 (0-50) U/L Alkaline Phosphatase 53 (38-126) U/L Serum Total Protein 5.5 L (6.3-8.2) g/dL Albumin 3.4 L (3.5-5.0) g/dL Urine Color Yellow (Yellow) Urine Appearance Clear (Clear) Urine pH 5.0 (4.6-8.0) Ur Specific [place] 1.020 (1.005-1.030) Urine Protein Trace A (Negative) Urine Glucose (UA) Negative (Negative) mg/dL Urine Ketones 15 A (Negative) Urine Blood Moderate A (Negative) Urine Nitrite Negative (Negative) Urine Bilirubin Negative (Negative) Urine Urobilinogen 0.2 (0.2) mg/dL Ur Leukocyte Esterase Negative (Negative) U Hyaline Cast (Auto) 6-10 A (0-2) /LPF Urine Microscopic RBC 3-5 (0-5) /HPF Urine Microscopic WBC 0-2 (0-5) /HPF Ur Epithelial Cells None Seen (None Seen) /HPF Urine Bacteria Few A (None Seen) /HPF Urine Culture Reflexed ORDERED SEPARATELY (NO) 12/19/24 12/19/24 12/19/24 Range/Units 15:55 16:49 23:20 WBC (4.23-9.07) x10^3/uL RBC (4.63-6.08) x10^6/uL Hgb (13.7-17.5) g/dL Hct (40.1-51.0) % MCV (79.0-92.2) fL MCH (25.7-32.2) pg MCHC (32.3-36.5) g/dL RDW (11.6-14.4) % Plt Count (163-337) x10^3/uL MPV (9.4-12.4) fL Segmented Neutrophils (34.0-67.9) % Band Neutrophils (0.0-2.0) % Lymphocytes (Manual) (21.8-53.1) % Monocytes (Manual) (5.3-12.2) % Eosinophils (Manual) (0.8-7.0) % Hypochromia Platelet Estimate (NORMAL) RBC Morphology Sodium (135-145) mmol/L Potassium (3.5-5.1) mmol/L Chloride (98-107) mmol/L Carbon Dioxide (22-30) mmol/L Anion Gap (5-15) MEQ/L BUN (9-20) mg/dL Creatinine (0.66-1.25) mg/dL Estimated GFR ML/MIN Glucose (74-106) mg/dL POC Glucometer 254 H 241 H 223 H (74 to 106) mg/dL Calcium (8.4-10.2) mg/dL Magnesium (1.6-2.3) mg/dL Total Bilirubin (0.2-1.3) mg/dL AST (17-59) U/L ALT (0-50) U/L Alkaline Phosphatase (38-126) U/L Serum Total Protein (6.3-8.2) g/dL Albumin (3.5-5.0) g/dL Urine Color (Yellow) Urine Appearance (Clear) Urine pH (4.6-8.0) Ur Specific [place] (1.005-1.030) Urine Protein (Negative) Urine Glucose (UA) (Negative) mg/dL Urine Ketones (Negative) Urine Blood (Negative) Urine Nitrite (Negative) Urine Bilirubin (Negative) Urine Urobilinogen (0.2) mg/dL Ur Leukocyte Esterase (Negative) U Hyaline Cast (Auto) (0-2) /LPF Urine Microscopic RBC (0-5) /HPF Urine Microscopic WBC (0-5) /HPF Ur Epithelial Cells (None Seen) /HPF Urine Bacteria (None Seen) /HPF Urine Culture Reflexed (NO) 12/20/24 12/20/24 12/20/24 Range/Units 04:35 04:35 07:27 WBC 20.6 H (4.23-9.07) x10^3/uL RBC 3.11 L (4.63-6.08) x10^6/uL Hgb 9.6 L (13.7-17.5) g/dL Hct 30.8 L (40.1-51.0) % MCV 99.0 H (79.0-92.2) fL MCH 30.9 (25.7-32.2) pg MCHC 31.2 L (32.3-36.5) g/dL RDW 13.7 (11.6-14.4) % Plt Count 121 L (163-337) x10^3/uL MPV 9.1 L (9.4-12.4) fL Segmented Neutrophils 84 H (34.0-67.9) % Band Neutrophils 1 (0.0-2.0) % Lymphocytes (Manual) 7 L (21.8-53.1) % Monocytes (Manual) 5 L (5.3-12.2) % Eosinophils (Manual) 3 (0.8-7.0) % Hypochromia 1+ Platelet Estimate NORMAL (NORMAL) RBC Morphology NORMAL Sodium 131 L (135-145) mmol/L Potassium 4.5 (3.5-5.1) mmol/L Chloride 100 (98-107) mmol/L Carbon Dioxide 29 (22-30) mmol/L Anion Gap 6.4 (5-15) MEQ/L BUN 40 H (9-20) mg/dL Creatinine 1.10 (0.66-1.25) mg/dL Estimated GFR 70.0 ML/MIN Glucose 188 H (74-106) mg/dL POC Glucometer 177 H (74 to 106) mg/dL Calcium 8.2 L (8.4-10.2) mg/dL Magnesium 2.2 (1.6-2.3) mg/dL Total Bilirubin 0.80 (0.2-1.3) mg/dL AST 82 H (17-59) U/L ALT 26 (0-50) U/L Alkaline Phosphatase 53 (38-126) U/L Serum Total Protein 5.4 L (6.3-8.2) g/dL Albumin 3.3 L (3.5-5.0) g/dL Urine Color (Yellow) Urine Appearance (Clear) Urine pH (4.6-8.0) Ur Specific [place] (1.005-1.030) Urine Protein (Negative) Urine Glucose (UA) (Negative) mg/dL Urine Ketones (Negative) Urine Blood (Negative) Urine Nitrite (Negative) Urine Bilirubin (Negative) Urine Urobilinogen (0.2) mg/dL Ur Leukocyte Esterase (Negative) U Hyaline Cast (Auto) (0-2) /LPF Urine Microscopic RBC (0-5) /HPF Urine Microscopic WBC (0-5) /HPF Ur Epithelial Cells (None Seen) /HPF Urine Bacteria (None Seen) /HPF Urine Culture Reflexed (NO) Microbiology 12/19/24 13:25 Urine Culture - Preliminary Catherized NO GROWTH TO DATE 12/18/24 11:44 Wound Culture - Final Toe - R Big (Greater) Enterobacter Clocae Complex 12/18/24 12:08 Wound Culture - Final Foot - Right Serratia Marcescens 12/17/24 22:22 Blood Culture - Preliminary Blood 12/17/24 22:32 Blood Culture - Preliminary Blood Accuchecks Date 12/19/24 Date 12/19/24 Date 12/19/24 Time 16:51 Time 16:11 Time 12:17 - Radiology Impressions Radiology Exams & Impressions: Radiology Procedures Category Date Time Status BONE THREE PHASE [NUCMED] Stat Exams 12/19/24 08:00 Completed CHEST 2 VIEWS (PA AND LAT) Stat Exams 12/18/24 16:31 Completed ECHO W/2D AND DOPPLER [US] Urgent Exams 12/19/24 10:06 Taken Assessment/Plan (1) WILDA (acute kidney injury) Current Visit: Yes Status: Acute Code(s): N17.9 - ACUTE KIDNEY FAILURE, UNSPECIFIED (2) BPH (benign prostatic hyperplasia) Current Visit: Yes Status: Acute Code(s): N40.0 - BENIGN PROSTATIC HYPERPLASIA WITHOUT LOWER URINRY TRACT SYMP (3) CAD (coronary artery disease) Current Visit: Yes Status: Acute Code(s): I25.10 - ATHSCL HEART DISEASE OF [place] CORONARY ARTERY W/O ANG PCTRS (4) Cellulitis of right leg Current Visit: Yes Status: Acute Code(s): L03.115 - CELLULITIS OF RIGHT LOWER LIMB (5) Diabetes mellitus with insulin therapy Current Visit: Yes Status: Acute Code(s): E11.9 - TYPE 2 DIABETES MELLITUS WITHOUT COMPLICATIONS; Z79.4 - MCFP (CURRENT) USE OF INSULIN (6) Edema of right lower extremity Current Visit: Yes Status: Acute Code(s): R60.0 - LOCALIZED EDEMA (7) Osteomyelitis of right foot Current Visit: Yes Status: Acute Assessment & Plan: Soft tissue cultures reviewed and discussed with attending Hospitalist REGISTERED RADIATION THERAPIST and pharmacy for antibiotic stewardship. He is to have a PICC line placed today and initiate treatment with [facility] pharmacy to dose once daily. Pending bone cultures sensitivity and clean margin reports. Right lower extremity dressed with iodine, Adaptic, 4 x 4, multilayer compression dressing to the level of the tibial tuberosity Code(s): M86.9 - OSTEOMYELITIS, UNSPECIFIED (8) Sepsis Current Visit: Yes Status: Acute Assessment & Plan: Continue medical team management (9) Toe infection Current Visit: No Status: Acute Code(s): L08.9 - LOCAL INFECTION OF THE SKIN AND SUBCUTANEOUS TISSUE, UNSP
[2024-12-20] MEDS: DELTASONE 20 MG PO SCH (13:02)
[2024-12-20] MEDS: ENOXAPARIN SODIUM SQ SCH (13:02)
[2024-12-20] MEDS: DUONEB 0.5-3 MG/3 ml Neb IH SCH (13:18)
--- NOTE | 2024-12-20 13:38 | XRAY ---
Indication: Calf pain. Status post foot surgery. Two-dimensional sonogram and color Doppler imaging major venous vessels right leg performed. Comparison: December 17, 2024. Greater saphenous vein below knee now demonstrates nonoccluding thrombi. No thrombus seen in the examined deep venous vessels. Deep venous vessels demonstrates normal compressibility. Venous waveforms are normal with and without augmentation. Impression: Nonoccluding thrombi in greater saphenous vein below knee. Otherwise right leg again negative for DVT.
--- NOTE | 2024-12-20 14:54 | XRAY ---
Indication: PICC line placement. Comparison: December 18, 2024 Portable chest demonstrates new right arm PICC line with tip projecting over SVC. Lungs remained slightly underinflated and clear. Heart not enlarged again with left AICD. No new/acute cardiopulmonary abnormalities.
[2024-12-20] MEDS: Invanz *** 1 G in Sodium Chloride 100ML MINI-BAG PLUS 100 ML IV SCH (15:14)
[2024-12-20] MEDS: PHARMACY RENAL DOSING MC ONE (18:13)
[2024-12-20] MEDS: TROUGH DRUG LEVELS IJ ONE (18:14)
[2024-12-20] MEDS: ELIQUIS 2.5 MG TABLET PO SCH (20:57)
--- NOTE | 2024-12-21 05:16 | PCM.NOTE ---
Date and Time: 12/21/24 0514 Subjective Assessment: Mr. Ruiz is a 74-year-old obese male with a pmhx of coronary artery disease, hypertension, insulin-dependent diabetes mellitus, asthma, prostate disease, and an implanted pacemaker/defibrillator who presented to ED 12/17/24 with multiple complaints after dinner. He noted acute onset of right lower extremity pain with ambulation associated with swelling, without fall or trauma. He also endorsed mild cough, shortness of breath, low-grade fever, and central non-radiating substernal achiness. He is not on anticoagulation therapy. On arrival, he was febrile at 100.6 F. A 12-lead EKG demonstrated sinus rhythm at 61 bpm with QTc 469 ms and no acute ischemic changes. Labs showed elevated procalcitonin, e levated D-dimer (4.34), and BNP checked in context with renal function to guide fluids. UA was negative, viral panel and monospot were negative. CT chest with contrast showed no pulmonary embolism or intrathoracic abnormality. Chest X-ray was clear. Right lower extremity venous Doppler was negative for DVT. Given localized symptoms and known foot pathology, podiatry (Dr. Quiñones) was consulted. Nuclear bone scan was arranged to evaluate suspected right foot osteomyelitis. Prior wound cultures: 11/18/24 with no growth, 08/28/24 positive for Staphylococcus aureus. Currently cultures are growing gram - ID, pending final sensitivity. Antibiotics were transitioned from meropenem to vancomycin plus cefepime/Flagyl after pharmacy review. Blood and wound cultures were ordered prior to antibiotics when feasible. IV fluids were bolused and are running at 100 mL/h. Patient developed 3+ pitting edema and fluids stopped. Overnight, the patient was found to have hyperkalemia. He was treated with patir william (Veltassa) 8.4 g PO 1. Repeat BMP is pending to reassess potassium and renal function. No EKG changes were noted. Potassium levels have now normalized. Patient also noted with 650ml residual following PVR. Will anchor junior. Will add lasix. Surgical intervention may be required pending imaging and podiatry reassessment. 12/19: Patient rested overnight with improved pain control, reports right foot discomfort is now tolerable. No recurrent chest pain, cough, or dyspnea. Febrile trend noted yesterday; currently afebrile. Nursing staff report adequate pain management and improved comfort with ambulation assistance. Nuclear bone scan to be completed today, with podiatry evaluating for possible surgical intervention. Wound culture returned positive for gram-negative organisms; identification pending. IV fluids discontinued in light of bilateral lower extremity pitting edema and history of CHF. Patient started on IV furosemide for volume management and metronidazole was added to broaden anaerobic coverage. Continues on vancomycin and cefepime. Podiatry remains actively involved in management and surgical planning. 12/20: Patient seen at bedside, POD#1 from right great toe amputation for osteomyelitis confirmed on bone scan. Reports pain much improved. Case reviewed with podiatry: recommend PICC placement for IV Invanz. Bone biopsy pending; wound cultures growing Serratia marcescens and Enterobacter. Renal function at baseline following Junior placement 12/19. Patient to work with PT today for mobility evaluation; dispo pending assessment (home vs SNF with IV antibiotics/rehab). Objective Exam Wound Assessment: Skin/Wound Assessment Wound/Incision Assessment Start: 12/18/24 02:08 Text: Status: Active Freq: Q6H Protocol: Document 12/20/24 23:00 (Rec: 12/20/24 23:47 [id number]) Wound/Incision Assessment Right outer ankle Wound Assessment Shift Assessment Wound Type Pressure Ulcer Wound Stage Deep Tissue Injury Drainage Amount None Drainage Odor None/Absent Objective Data Vital Signs: Vital Signs - 24 hr Temp Pulse Resp BP Pulse Ox 12/21/24 00:47 73 16 92 L 12/21/24 00:00 97.7 F 74 16 138/63 12/20/24 20:00 98.0 F 65 18 155/69 94 L 12/20/24 19:12 93 L 12/20/24 18:58 81 16 88 L 12/20/24 16:00 97.6 F 80 16 127/60 94 L 12/20/24 13:21 82 18 95 12/20/24 11:59 97.8 F 83 16 129/55 94 L 12/20/24 07:47 97.8 F 82 16 138/62 95 12/20/24 07:45 82 18 94 L Pain Assessment - Last Documented Pain Intensity 6 Pain Scale Used FLACC Intake and Output: Intake & Output 12/18/24 12/19/24 12/20/24 12/21/24 11:59 11:59 11:59 11:59 Intake Total 286 485 3569 720 Output Total 100 2325 1550 5600 Balance 180 1505 -240 -1650 Weight 109.8 kg 116 kg 114.8 kg 114.8 kg Lab Results: Lab Results-Last 24 Hours 12/20/24 12/20/24 12/20/24 Range/Units 04:35 07:27 11:22 Segmented Neutrophils 84 H (34.0-67.9) % Band Neutrophils 1 (0.0-2.0) % Lymphocytes (Manual) 7 L (21.8-53.1) % Monocytes (Manual) 5 L (5.3-12.2) % Eosinophils (Manual) 3 (0.8-7.0) % Hypochromia 1+ Platelet Estimate NORMAL (NORMAL) RBC Morphology NORMAL POC Glucometer 177 H 221 H (74 to 106) mg/dL Vancomycin Trough (10-20) ug/mL 12/20/24 12/20/24 12/20/24 Range/Units 11:45 16:30 20:54 Segmented Neutrophils (34.0-67.9) % Band Neutrophils (0.0-2.0) % Lymphocytes (Manual) (21.8-53.1) % Monocytes (Manual) (5.3-12.2) % Eosinophils (Manual) (0.8-7.0) % Hypochromia Platelet Estimate (NORMAL) RBC Morphology POC Glucometer 225 H 151 H (74 to 106) mg/dL Vancomycin Trough 8.50 L (10-20) ug/mL Radiology Exams: Radiology Procedures Category Date Time Status BONE THREE PHASE [NUCMED] Stat Exams 12/19/24 08:00 Completed CHEST 1 VIEW (PORTABLE) Stat Exams 12/20/24 14:29 Completed ECHO W/2D AND DOPPLER [US] Urgent Exams 12/19/24 10:06 Taken VENOUS UNILAT/LIMITED EXTREMIT [US] Stat Exams 12/20/24 11:44 Completed Medications: Medications Generic Name Dose Route Start Last Admin Trade Name Freq PRN Reason Stop Dose Admin Hydrocodone Bitart/Acetaminophen 1 - 2 tab 12/19/24 19:55 12/20/24 20:55 Hydrocodone/Apap 5/325 1 Tab Tablet PO 12/24/24 19:54 2 tab Q4H PRN PRN Administration PAIN Albuterol/Ipratropium 3 ml 12/18/24 19:49 12/18/24 19:59 Ipratropium/Albuterol Sulfate 3 Ml Ampul.Neb 01/17/25 19:48 3 ml Q4HPRN PRN Administration SHORTNESS OF BREATH/WHEEZING Albuterol/Ipratropium 3 ml 12/20/24 13:00 12/21/24 00:47 Ipratropium/Albuterol Sulfate 3 Ml Ampul.Neb 01/19/25 12:59 3 ml Q6HRT DL Administration Amlodipine Besylate 5 mg 12/20/24 10:00 12/20/24 09:06 Amlodipine Besylate 5 Mg Tablet PO 01/19/25 09:59 5 mg QAM DL Administration Apixaban 10 mg 12/20/24 22:00 12/20/24 20:57 Apixaban 2.5 Mg Tablet PO 12/27/24 21:59 10 mg BID DL Administration Calcium Carbonate/Glycine 750 mg 12/18/24 22:00 12/20/24 21:00 Calcium Carbonate 750 Mg 750 Mg Tab.Chew PO 01/17/25 21:59 750 mg BID DL Administration Carvedilol 25 mg 12/18/24 14:30 12/20/24 20:56 Carvedilol 12.5 Mg Tablet PO 01/17/25 14:29 25 mg BID DL Administration Cholecalciferol 2,000 unit 12/18/24 14:30 12/20/24 09:06 Cholecalciferol (Vitamin D3) 1000 Unit Tablet PO 01/17/25 14:29 2,000 unit DAILY DL Administration Famotidine 40 mg 12/18/24 14:30 12/20/24 09:06 Famotidine 20 Mg Tablet PO 01/17/25 14:29 40 mg DAILY DL Administration Finasteride 5 mg 12/18/24 14:30 12/20/24 09:07 Finasteride 5 Mg Tablet PO 01/17/25 14:29 5 mg DAILY DL Administration Folic Acid 1 mg 12/18/24 14:30 12/20/24 09:06 Folic Acid 1 Mg Tablet PO 01/17/25 14:29 1 mg DAILY DL Administration Furosemide 40 mg 12/19/24 10:15 12/20/24 20:56 Furosemide 40 Mg/4 Ml Vial IV 01/18/25 10:14 40 mg Q12HT DL Administration Gabapentin 300 mg 12/18/24 14:30 12/20/24 20:56 Gabapentin 300 Mg Capsule PO 01/17/25 14:29 300 mg BID DL Administration Hydromorphone HCl 0.5 mg 12/18/24 09:37 12/19/24 19:43 Hydromorphone 1 Mg/1ml Inj IV 12/23/24 09:36 0.5 mg Q4H PRN PRN Administration PAIN Ertapenem 1 g/ Sodium Chloride 100 mls @ 200 mls/hr 12/20/24 14:00 12/20/24 15:14 IV 01/19/25 13:59 200 mls/hr Q24H DL Administration Insulin Glargine 20 unit 12/19/24 10:00 12/20/24 09:07 Insulin Glargine 1 Unit SQ 01/18/25 09:59 20 unit QAM DL Administration Insulin Human Lispro 0 unit 12/18/24 18:19 12/20/24 17:27 Insulin Lispro 1 Unit SQ 01/17/25 18:18 6 unit UD PRN Administration HYPERGLYCEMIA Insulin Human Lispro 5 unit 12/19/24 08:00 12/20/24 17:27 Insulin Lispro 1 Unit SQ 01/18/25 07:59 5 unit TIDWM DL Administration Magnesium Oxide 400 mg 12/18/24 14:30 12/20/24 20:58 Magnesium Oxide 400 Mg Tablet PO 01/17/25 14:29 400 mg BID DL Administration Miscellaneous Information 1 each 12/18/24 12:00 Medication Intervention 1 Each Each MC 01/17/25 11:59 .RT TO CHECK DL Miscellaneous Information 1 each 12/18/24 12:00 Medication Intervention 1 Each Each MC 01/17/25 11:59 .RN TO CHECK DL Multivitamins Therapeutic 1 tab 12/18/24 22:00 12/20/24 21:00 Multivitamins,Therapeutic 1 Tab Tab PO 01/17/25 21:59 1 tab HS DL Administration Ondansetron HCl 4 mg 12/18/24 02:07 Ondansetron Hcl 4 Mg/2 Ml Vial IV 01/17/25 02:06 Q6H PRN PRN NAUSEA/VOMITING Prednisone 20 mg 12/20/24 13:00 12/20/24 20:56 Prednisone 20 Mg Tablet PO 01/19/25 12:59 20 mg BID DL Administration Tamsulosin HCl 0.4 mg 12/18/24 22:00 12/20/24 20:56 Tamsulosin Hcl 0.4 Mg Cap PO 01/17/25 21:59 0.4 mg HS DL Administration Vitamin E 400 units 12/18/24 14:30 12/20/24 09:07 Vitamin E 400 Units 400 Units Capsule PO 01/17/25 14:29 400 units DAILY DL Administration Zolpidem Tartrate 10 mg 12/18/24 22:00 12/20/24 20:57 Zolpidem Tartrate 10 Mg Tablet PO 01/17/25 21:59 10 mg HS DL Administration Discontinued Medications Generic Name Dose Route Start Last Admin Trade Name Freq PRN Reason Stop Dose Admin Acetaminophen 650 mg 12/17/24 22:39 12/17/24 22:46 Acetaminophen 325 Mg Tablet PO 12/17/24 22:40 650 mg STAT ONE Administration Acetaminophen Confirm 12/17/24 22:46 Acetaminophen 325 Mg Tablet Administered 12/17/24 22:47 Dose 650 mg .ROUTE .STK-MED ONE Hydrocodone Bitart/Acetaminophen 1 tab 12/17/24 23:30 12/17/24 23:58 Hydrocodone/Apap 5/325 1 Tab Tablet PO 12/17/24 23:31 1 tab STAT ONE Administration Hydrocodone Bitart/Acetaminophen Confirm 12/17/24 23:58 Hydrocodone/Apap 5/325 1 Tab Tablet Administered 12/17/24 23:59 Dose 1 tab .ROUTE .STK-MED ONE Hydrocodone Bitart/Acetaminophen 1 tab 12/18/24 09:37 12/20/24 10:02 Hydrocodone/Apap 5/325 1 Tab Tablet PO 12/23/24 09:36 1 tab Q4H PRN PRN Administration PAIN Albuterol/Ipratropium Confirm 12/18/24 19:51 Ipratropium/Albuterol Sulfate 3 Ml Ampul.Neb Administered 12/18/24 19:52 Dose 3 ml IH .STK-MED ONE Albuterol/Ipratropium 3 ml 12/19/24 18:36 12/19/24 18:38 Ipratropium/Albuterol Sulfate 3 Ml Ampul.Neb IH 12/19/24 18:37 3 ml STAT ONE Administration Amlodipine/Benazepril HCl 2 cap 12/18/24 12:00 12/18/24 14:37 Amlodipine/Benzapril 5mg/10mg Capsule PO 01/17/25 11:59 Not Given DAILY DL Amlodipine/Benazepril HCl 2 cap 12/18/24 14:30 12/19/24 10:15 Amlodipine/Benzapril 5mg/10mg Capsule PO 01/17/25 14:29 2 cap DAILY DL Administration Amlodipine/Benazepril HCl Confirm 12/18/24 13:47 Amlodipine/Benzapril 5mg/10mg Capsule Administered 12/18/24 13:48 Dose 2 cap .ROUTE .STK-MED ONE Bupivacaine HCl Confirm 12/19/24 17:51 Bupivacaine Hcl/Pf 150 Mg/30 Ml Vial Administered 12/19/24 17:52 Dose 150 mg .ROUTE .STK-MED ONE Calcium Carbonate/Glycine Confirm 12/18/24 21:22 Calcium Carbonate 750 Mg 750 Mg Tab.Chew Administered 12/18/24 21:23 Dose 750 mg .ROUTE .STK-MED ONE Carvedilol 25 mg 12/18/24 12:00 12/18/24 14:36 Carvedilol 12.5 Mg Tablet PO 01/17/25 11:59 Not Given BID [facility] Carvedilol Confirm 12/18/24 13:46 Carvedilol 12.5 Mg Tablet Administered 12/18/24 13:47 Dose 25 mg .ROUTE .STK-MED ONE Carvedilol Confirm 12/18/24 21:22 Carvedilol 12.5 Mg Tablet Administered 12/18/24 21:23 Dose 12.5 mg .ROUTE .STK-MED ONE Cholecalciferol 2,000 unit 12/18/24 12:00 12/18/24 14:38 Cholecalciferol (Vitamin D3) 1000 Unit Tablet PO 01/17/25 11:59 Not Given DAILY DL Cholecalciferol Confirm 12/18/24 13:47 Cholecalciferol (Vitamin D3) 1000 Unit Tablet Administered 12/18/24 13:48 Dose 2,000 unit PO .STK-MED ONE Device 1 12/20/24 09:30 Therapuetic Drug Level Monitor Each IJ 12/20/24 09:31 1XONLY ONE Device 1 12/20/24 11:30 12/20/24 18:14 Therapuetic Drug Level Monitor Each IJ 12/20/24 11:31 1 1XONLY ONE Administration Enoxaparin Sodium 40 mg 12/20/24 13:00 12/20/24 13:02 Enoxaparin Sodium 40 Mg/0.4 Ml Syringe SQ 01/19/25 12:59 40 mg DAILY DL Administration Etomidate Confirm 12/19/24 17:18 Etomidate 20 Mg/10 Ml Amp Administered 12/19/24 17:19 Dose 20 mg IV .STK-MED ONE Famotidine 40 mg 12/18/24 12:00 12/18/24 14:38 Famotidine 20 Mg Tablet PO 01/17/25 11:59 Not Given DAILY [facility] Famotidine Confirm 12/18/24 13:48 Famotidine 20 Mg Tablet Administered 12/18/24 13:49 Dose 40 mg .ROUTE .STK-MED ONE Fentanyl Citrate Confirm 12/19/24 17:23 Fentanyl Citrate 100 Mcg/2 Ml* Vial Administered 12/19/24 17:24 Dose 100 mcg .ROUTE .STK-MED ONE Fentanyl Citrate Confirm 12/19/24 18:33 Fentanyl Citrate 100 Mcg/2 Ml* Vial Administered 12/19/24 18:34 Dose 100 mcg .ROUTE .STK-MED ONE Finasteride 5 mg 12/18/24 12:00 12/18/24 14:38 Finasteride 5 Mg Tablet PO 01/17/25 11:59 Not Given DAILY [facility] Folic Acid 1 mg 12/18/24 12:00 12/18/24 14:37 Folic Acid 1 Mg Tablet PO 01/17/25 11:59 Not Given DAILY [facility] Folic Acid Confirm 12/18/24 13:47 Folic Acid 1 Mg Tablet Administered 12/18/24 13:48 Dose 1 mg .ROUTE .STK-MED ONE Gabapentin 300 mg 12/18/24 12:00 12/18/24 14:37 Gabapentin 300 Mg Capsule PO 01/17/25 11:59 Not Given BID [facility] Gabapentin Confirm 12/18/24 13:46 Gabapentin 300 Mg Capsule Administered 12/18/24 13:47 Dose 300 mg .ROUTE .STK-MED ONE Gabapentin Confirm 12/18/24 21:22 Gabapentin 300 Mg Capsule Administered 12/18/24 21:23 Dose 300 mg .ROUTE .STK-MED ONE Hydromorphone HCl 0.5 mg 12/18/24 04:17 12/18/24 04:31 Hydromorphone 1 Mg/1ml Inj IV 12/18/24 04:18 0.5 mg STAT ONE Administration Hydromorphone HCl 0.5 mg 12/18/24 10:25 12/18/24 11:35 Hydromorphone 1 Mg/1ml Inj IV 12/18/24 10:26 Not Given STAT ONE Hydromorphone HCl Confirm 12/19/24 18:34 Hydromorphone Hcl/Pf 0.5 Mg/0.5 Ml Syringe Administered 12/19/24 18:35 Dose 0.5 mg .ROUTE .STK-MED ONE Sodium Chloride 1,000 mls @ 100 mls/hr 12/17/24 22:15 12/18/24 02:08 Sodium Chloride 0.9% 1000 Ml IV 01/16/25 22:14 Infused .Q10H DL Infusion Meropenem 1 gm/ Sodium 100 mls @ 200 mls/hr 12/18/24 01:52 12/18/24 01:56 Chloride IV 12/18/24 02:21 200 mls/hr STAT ONE 200 mls/hr Administration Sodium Chloride 1,000 mls @ 999 mls/hr 12/18/24 01:52 12/18/24 02:29 Sodium Chloride 0.9% 1000 Ml IV 12/18/24 02:52 0 mls/hr .Q1H1M STA Infusion Sodium Chloride Confirm 12/18/24 01:55 Sodium Chloride 0.9% Administered 12/18/24 01:56 Dose 100 mls @ ud .ROUTE .STK-MED ONE Sodium Chloride Confirm 12/17/24 22:20 Sodium Chloride 0.9% 1000 Ml Administered 12/17/24 22:21 Dose 1,000 mls @ ud .ROUTE .STK-MED ONE Sodium Chloride Confirm 12/18/24 01:54 Sodium Chloride 0.9% 1000 Ml Administered 12/18/24 01:55 Dose 1,000 mls @ ud .ROUTE .STK-MED ONE Meropenem 1 gm/ Sodium 100 mls @ 200 mls/hr 12/18/24 06:00 Chloride IV 12/21/24 05:59 Q8HT DL Sodium Chloride 1,000 mls @ 100 mls/hr 12/18/24 02:07 12/19/24 07:40 Sodium Chloride 0.9% 1000 Ml IV 01/17/25 02:06 Not Given .Q10H DL Meropenem 1 gm/ Sodium 100 mls @ 200 mls/hr 12/18/24 10:00 Chloride IV 12/21/24 09:59 Q8H DL Cefepime HCl 2 g/ Sodium 100 mls @ 200 mls/hr 12/18/24 09:00 12/18/24 21:34 Chloride IV 01/17/25 08:59 200 mls/hr Q12H DL Administration Vancomycin HCl 1 gm in 200 mls @ 133.333 mls/hr 12/18/24 10:00 12/18/24 21:35 Vancomycin 1 Gram/200 Ml Bag IV 01/17/25 09:59 133.333 mls/hr Q12HT DL Administration Sodium Chloride 1,000 mls @ 75 mls/hr 12/19/24 08:15 12/19/24 08:24 Sodium Chloride 0.9% 1000 Ml IV 01/18/25 08:14 75 mls/hr .[id number] DL Administration Cefepime HCl 1 g/ Sodium 100 mls @ 200 mls/hr 12/19/24 09:00 12/20/24 09:06 Chloride IV 01/18/25 08:59 200 mls/hr Q12H DL Administration Vancomycin HCl 1 gm in 200 mls @ 133.333 mls/hr 12/19/24 18:00 12/20/24 18:14 Vancomycin 1 Gram/200 Ml Bag IV 01/18/25 17:59 Not Given Q18H DL Insulin Human Lispro 0 unit 12/18/24 08:01 12/18/24 17:14 Insulin Lispro 1 Unit SQ 01/17/25 08:00 5 unit UD PRN Administration HYPERGLYCEMIA Insulin Human Regular 0 unit 12/18/24 02:07 Insulin Regular, Human 1 Unit SQ 01/17/25 02:06 UD PRN HYPERGLYCEMIA Lidocaine HCl Confirm 12/19/24 17:51 Lidocaine Hcl/Pf 1 % 30 Ml Pf Sdv Administered 12/19/24 17:52 Dose 30 ml IJ .STK-MED ONE Magnesium Oxide 400 mg 12/18/24 12:00 12/18/24 14:37 Magnesium Oxide 400 Mg Tablet PO 01/17/25 11:59 Not Given BID [facility] Magnesium Oxide Confirm 12/18/24 13:48 Magnesium Oxide 400 Mg Tablet Administered 12/18/24 13:49 Dose 400 mg .ROUTE .STK-MED ONE Magnesium Oxide Confirm 12/18/24 21:24 Magnesium Oxide 400 Mg Tablet Administered 12/18/24 21:25 Dose 400 mg .ROUTE .STK-MED ONE Meropenem Confirm 12/18/24 01:54 Meropenem 1 Gm Vial Administered 12/18/24 01:55 Dose 1 gm IV .STK-MED ONE Methotrexate 25 mg 12/24/24 10:00 Methotrexate Sodium 2.5 Mg Tablet PO 01/23/25 09:59 Q7D [facility] Metronidazole 500 mg 12/19/24 12:00 12/20/24 10:02 Metronidazole 500 Mg Tablet PO 01/18/25 11:59 500 mg Q6HT [facility] Administration Midazolam HCl Confirm 12/19/24 17:34 Midazolam Hcl 2 Mg/2 Ml Vial Administered 12/19/24 17:35 Dose 2 mg .ROUTE .STK-MED ONE Morphine Sulfate 2 mg 12/18/24 01:16 12/18/24 01:19 Morphine Sulfate 2 Mg/Ml Inj IV 12/18/24 01:17 2 mg STAT ONE Administration Morphine Sulfate Confirm 12/18/24 01:18 Morphine Sulfate 2 Mg/Ml Inj Administered 12/18/24 01:19 Dose 2 mg .ROUTE .STK-MED ONE Morphine Sulfate 4 mg 12/18/24 02:07 Morphine Sulfate 4 Mg/Ml Injection IV 12/23/24 02:06 Q4H PRN PRN SEVERE PAIN Multivitamins Therapeutic Confirm 12/18/24 21:23 Multivitamins,Therapeutic 1 Tab Tab Administered 12/18/24 21:24 Dose 1 tab .ROUTE .STK-MED ONE Non-Formulary Medication 1 each 12/18/24 08:30 Pharmacy Dose Request: Vancomycin 1 Each IV 01/17/25 08:29 ON[facility]TOOR [facility] Non-Formulary Medication 1 each 12/18/24 08:16 12/19/24 07:37 Pharmacy Dosing Request MC 12/18/24 08:17 1 each STAT ONE Administration Non-Formulary Medication 1 each 12/19/24 09:55 12/19/24 10:17 Pharmacy Dosing Request 12/19/24 09:56 1 each STAT ONE Administration Non-Formulary Medication 1 each 12/19/24 10:37 12/19/24 10:55 Pharmacy Dosing Request 12/19/24 10:38 1 each STAT ONE Administration Non-Formulary Medication 1 each 12/20/24 12:18 12/20/24 18:13 Pharmacy Dosing Request 12/20/24 12:19 1 each STAT ONE Administration Ondansetron HCl 4 mg 12/18/24 01:16 12/18/24 01:19 Ondansetron Hcl 4 Mg/2 Ml Vial IV 12/18/24 01:17 4 mg STAT ONE Administration Ondansetron HCl Confirm 12/18/24 01:18 Ondansetron Hcl 4 Mg/2 Ml Vial Administered 12/18/24 01:19 Dose 4 mg .ROUTE .STK-MED ONE Patiromer 8.4 gm 12/18/24 18:41 12/18/24 21:36 Patiromer Calcium Sorbitex 8.4 Gm Powd.Pack PO 12/18/24 18:42 8.4 gm STAT STA Administration Patiromer Confirm 12/18/24 21:26 Patiromer Calcium Sorbitex 8.4 Gm Powd.Pack Administered 12/18/24 21:27 Dose 8.4 gm PO .STK-MED ONE Phenylephrine HCl Confirm 12/19/24 17:21 Phenylephrine 10 Mg/Ml Vial Administered 12/19/24 17:22 Dose 10 mg .ROUTE .STK-MED ONE Prednisone 5 mg 12/18/24 12:00 12/18/24 14:37 Prednisone 5 Mg Tablet PO 01/17/25 11:59 Not Given DAILY DL Prednisone 5 mg 12/18/24 14:30 12/19/24 10:15 Prednisone 5 Mg Tablet PO 01/17/25 14:29 5 mg DAILY DL Administration Prednisone Confirm 12/18/24 13:47 Prednisone 5 Mg Tablet Administered 12/18/24 13:48 Dose 5 mg .ROUTE .STK-MED ONE Propofol Confirm 12/19/24 17:19 Propofol 200 Mg/20 Ml Vial Administered 12/19/24 17:20 Dose 200 mg IV .STK-MED ONE Tamsulosin HCl Confirm 12/18/24 21:23 Tamsulosin Hcl 0.4 Mg Cap Administered 12/18/24 21:24 Dose 0.4 mg .ROUTE .STK-MED ONE Vitamin E 400 units 12/18/24 12:00 12/18/24 14:38 Vitamin E 400 Units 400 Units Capsule PO 01/17/25 11:59 Not Given DAILY DL Zolpidem Tartrate Confirm 12/18/24 21:22 Zolpidem Tartrate 10 Mg Tablet Administered 12/18/24 21:23 Dose 10 mg .ROUTE .STK-MED ONE Multi-Disciplinary Progress Notes: Multi-Disciplinary Progress Notes 12/20/24 11:52 Case Management Note by Anay Wilson [facility] HAS ACCEPTED- PATIENT CAN ADMIT STARTING 12/21 AND CAN ADMIT THRU THE WEEKEND IF MEDICALLY READY Initialized on 12/20/24 11:52 - END OF NOTE 12/20/24 11:15 Case Management Note by Anay WilsonLYNN REPORTED IF PATIENT SHOULD DC HOME INSTEAD OF DCING TO REHAB- NO DRESSING CHANGES NEEDED AT HOME- KEEP CLEAN, DRY AND INTACT- F/U IN OFFICE NEXT WEEK. Initialized on 12/20/24 11:15 - END OF NOTE 12/20/24 11:10 Case Management Note by Anay WilsonRR PAPERWORK DONE- NO LEVEL II REQUIRED. COPY PLACED ON CHART AND SENT WITH REFERRAL TO [facility] Initialized on 12/20/24 11:10 - END OF NOTE 12/20/24 10:51 Case Management Note by Sherri Feliciano S/W PATIENT AND HE IS AGREEABLE FOR REHAB STAY AT [place]. S/W AND SHE AGREES WITH PLAN FOR REHAB STAY AND WOULD LIKE TO TRY FOR [facility]. Initialized on 12/20/24 10:51 - END OF NOTE Assessment/Plan (1) Sepsis Current Visit: Yes Status: Acute Assessment & Plan: -Evidence: fever, WBC at 14.9 on admission up to 17.9, elevated lactate/procalcitonin elevation, source of infection cellulitis right foot - history of chronic foot issues, prior S. aureus culture -Doppler RLE negative for DVT - negative alternative workup (UA, chest imaging). -Continue empiric vancomycin + cefepime -Blood, wound, and bone cultures (possible with surgical intervention if needed) pending . -Podiatry following, discussed case -Nuclear bone scan pending; podiatry evaluating for surgical intervention. -Trend inflammatory markers, WBC, lactate- lactate now WNL -Fluids dcd due to BLE edema- -Daily renal monitoring for antibiotic dosing. 12/19/24: -WBC reviewed and at 23.9>17.9>14.9 -Continue vanc/cefepime/add flagyl- renally dosed -Wound cultures growing gram - pending final sensitivity -Bone scan pending -Podiatry following - surgical eval pending bone scan results -Lactic now WNL 12/20 -WBC reviewed and improved at 20.3<23.9 -Discontinue Vanc/Cefepime/Flagyl- Continue Invanz per podiatry recs -Wound culture with Serratia marcescens and enterobactor -Bone biopsy pending -Positive three-phase bone scan exam favoring right great toe osteomyelitis. -Patient is PODS #1 right great toe amputation- podiatry following -PT eval for continue rehab, wound care, and IV abx- -CM working on placement (2) Cellulitis of right leg Current Visit: Yes Status: Acute Assessment & Plan: -see sepsis Code(s): L03.115 - CELLULITIS OF RIGHT LOWER LIMB (3) Osteomyelitis of right foot Current Visit: Yes Status: Acute Assessment & Plan: -Positive three-phase bone scan exam favoring right great toe osteomyelitis. -Patient is PODS #1 right great toe amputation- podiatry following -see sepsis above for plan Code(s): M86.9 - OSTEOMYELITIS, UNSPECIFIED (4) Hyperkalemia Current Visit: Yes Status: Acute Assessment & Plan: - potassium level at 5.8 12/19-patient given Veltassa -tele -monitor renal/lytes daily -Repeat potassium reviewed and now wnl at 5.1- trend daily 12/20: -potassium reviewed at 4.5 and stable -hold benazepril Code(s): E87.5 - HYPERKALEMIA Hyponatremia -Improved- now at 131-trend (5) Edema of right lower extremity Current Visit: Yes Status: Acute Assessment & Plan: -localized swelling/pain, negative Doppler. -Supportive care: leg elevation, pain control (acetaminophen). -Daily exams for erythema, warmth, or abscess development. -See sepsis for cellulitis/osteo plan -compression dressing to RLE 12/20: Continue lasix 40mg bid Code(s): R60.0 - LOCALIZED EDEMA (6) Chest pain Current Visit: Yes Status: Acute Assessment & Plan: -substernal achiness, non-radiating, normal EKG, no ischemia. -Trend troponins to exclude ACS -negative mild but on trop number 2 but 3rd troponin WNL -chest pain resolved -Telemetry monitoring due to CAD and device in place. -If recurrent or progressive symptoms, repeat EKG and consider cardiology input. Code(s): R07.9 - CHEST PAIN, UNSPECIFIED (7) CAD (coronary artery disease) Current Visit: Yes Status: Acute Assessment & Plan: -Continue home meds (statin, aspirin, beta-abraham if prescribed). -Monitor for arrhythmias on telemetry. -hold amlodipine/albert Code(s): I25.10 - ATHSCL HEART DISEASE OF [place] CORONARY ARTERY W/O ANG PCTRS (8) HTN (hypertension) Current Visit: Yes Status: Acute Assessment & Plan: -Resume home antihypertensives if stable; hold benazapril 2/2 hyperkalemia/WILDA -can resume amlodipine - decrease dose to 5mg Code(s): I10 - ESSENTIAL (PRIMARY) HYPERTENSION (9) Diabetes mellitus with insulin therapy Current Visit: Yes Status: Acute Assessment & Plan: -ADA diet -Resume SSI/basal/ bolus insulin -A1c 6.31 good control Code(s): E11.9 - TYPE 2 DIABETES MELLITUS WITHOUT COMPLICATIONS; Z79.4 - HALFWAY (CURRENT) USE OF INSULIN (10) Asthma Current Visit: Yes Status: Acute Assessment & Plan: -Continue inhalers; monitor for bronchospasm Code(s): J45.909 - UNSPECIFIED ASTHMA, UNCOMPLICATED (11) BPH (benign prostatic hyperplasia) Current Visit: Yes Status: Acute Assessment & Plan: -resume home meds; monitor for retention. 12/20: -Continue junior cath- will discharge with cath- needs urology follow up Code(s): N40.0 - BENIGN PROSTATIC HYPERPLASIA WITHOUT LOWER URINRY TRACT SYMP (12) Obesity Current Visit: Yes Status: Acute Assessment & Plan: -Advised diet and exercise Code(s): E66.9 - OBESITY, UNSPECIFIED (13) Urinary retention Current Visit: Yes Status: Acute Assessment & Plan: -PVR with > 600mls retained x 2 -Moore junior cath Code(s): R33.9 - RETENTION OF URINE, UNSPECIFIED (14) WILDA (acute kidney injury) Current Visit: Yes Status: Acute Assessment & Plan: -Creatinine increased to 1.85 (baseline WNL), patient with BLE edema, recent contrast exposure, sepsis, and on nephrotoxic antibiotics (vancomycin, cefepime). -Urine output with noted retention > 600mls PVR - junior placed -Hold maintenance IV fluids; trial IV furosemide for volume overload, reassess response -Strict I/O, daily weights. -Renally dose all meds -Consider nephrology consult if creatinine continues to rise, oliguria/anuria develops, or electrolyte/acidbase complications worsen. 12/20/24: -Creat reviewed at 1.10 -continue lasix ; hold IVF -Monitor renal/lytes daily VTE: pending podiatry recs PPI: protonix Dispo: 2-3 days Code status: Full Code Plan of care time spent > 45 mins (2) Cellulitis of right leg Current Visit: Yes Status: Acute Code(s): L03.115 - CELLULITIS OF RIGHT LOWER LIMB (3) Osteomyelitis of right foot Current Visit: Yes Status: Acute Code(s): M86.9 - OSTEOMYELITIS, UNSPECIFIED (4) Hyperkalemia Current Visit: Yes Status: Acute Code(s): E87.5 - HYPERKALEMIA (5) Edema of right lower extremity Current Visit: Yes Status: Acute Code(s): R60.0 - LOCALIZED EDEMA (6) Chest pain Current Visit: Yes Status: Acute Code(s): R07.9 - CHEST PAIN, UNSPECIFIED (7) CAD (coronary artery disease) Current Visit: Yes Status: Acute Code(s): I25.10 - ATHSCL HEART DISEASE OF [place] CORONARY ARTERY W/O ANG PCTRS (8) HTN (hypertension) Current Visit: Yes Status: Acute Code(s): I10 - ESSENTIAL (PRIMARY) HYPERTENSION (9) Diabetes mellitus with insulin therapy Current Visit: Yes Status: Acute Code(s): E11.9 - TYPE 2 DIABETES MELLITUS WITHOUT COMPLICATIONS; Z79.4 - HALFWAY (CURRENT) USE OF INSULIN (10) Asthma Current Visit: Yes Status: Acute Code(s): J45.909 - UNSPECIFIED ASTHMA, UNCOMPLICATED (11) BPH (benign prostatic hyperplasia) Current Visit: Yes Status: Acute Code(s): N40.0 - BENIGN PROSTATIC HYPERPLASIA WITHOUT LOWER URINRY TRACT SYMP (12) Obesity Current Visit: Yes Status: Acute Code(s): E66.9 - OBESITY, UNSPECIFIED (13) Urinary retention Current Visit: Yes Status: Acute Code(s): R33.9 - RETENTION OF URINE, UNSPECIFIED (14) WILDA (acute kidney injury) Current Visit: Yes Status: Acute Code(s): N17.9 - ACUTE KIDNEY FAILURE, UNS PECIFIED
[2024-12-21 06:00] LABS: Calcium 8.7 mg/dL (8.4-10.2); Carbon Dioxide 32.0 mmol/L (22-30); Creatinine 1 0.73 mg/dL (0.66-1.25); EST GLOMERULAR FILTRATION RATE 94.9 ML/MIN; Glucose 215.0 mg/dL (74-106); Potassium 5.1 mmol/L (3.5-5.1); SGOT/AST 74.0 U/L (17-59); SGPT/ALT 29.0 U/L (0-50); Total Protein 6.1 g/dL (6.3-8.2)
[2024-12-21 06:30] LABS: Hemoglobin 11.3 g/dL (13.7-17.5); Red Blood Count 3.67 x10^6/uL (4.63-6.08); White Blood Count 14.1 x10^3/uL (4.23-9.07)
[2024-12-21 06:31] LABS: Hematocrit 35.4 % (40.1-51.0); Mean Corpuscular Hemoglobin 30.8 pg (25.7-32.2); Mean Corpuscular Hgb Concent. 31.9 g/dL (32.3-36.5); Platelet Count 146 x10^3/uL (163-337)
[2024-12-21] MEDS: Zofran 4 MG/2 ML VIAL IV PRN (09:41)
[2024-12-21] MEDS: HUMALOG SQ SCH (09:50)
--- NOTE | 2024-12-21 10:20 | PCM.DS ---
Discharge Summary Date of Admission: 12/18/24 08:07 Date of Discharge: 12/21/24 Admitting Physician: RIO PAULSON MD Consults: Consults on Case 12/18/24 08:05 Consult Podiatry ROUTINE 12/18/24 11:32 Consult Podiatry ROUTINE Primary Care Provider: BAYRON,ANGEL Allergies Allergies tizanidine Allergy (Severe, Verified 12/18/24 02:43) Anaphylactic Reaction moxifloxacin [From Avelox] Allergy (Mild, Verified 12/18/24 02:43) Fainting midazolam [From Versed] Adverse Reaction (Verified 12/18/24 02:43) Irregular Heart Beat Penicillins Adverse Reaction (Verified 12/18/24 02:43) Hives spironolactone [From Aldactone] Adverse Reaction (Verified 12/18/24 02:43) Irregular Heart Beat Hospital Summary - Hospital Course Hospital Course: Mr. Ruiz is a 74-year-old obese male with a past medical history of coronary artery disease, hypertension, insulin-dependent diabetes mellitus, asthma, prostate disease, and an implanted pacemaker/defibrillator who presented on 12/17/24 with acute right lower extremity pain and swelling after dinner, associated with mild cough, dyspnea, low-grade fever, and substernal chest achiness. Initial workup showed fever 100.6 F, elevated procalcitonin, markedly elevated D-dimer (4.34), and BNP checked for volume guidance. Viral panel, monospot, and urinalysis were negative. Chest imaging (X-ray and CT chest with contrast) was clear without pneumonia or pulmonary embolism. Right lower extremity venous Doppler initially negative for DVT. Given his right foot pain and chronic pathology, podiatry was consulted; nuclear bone scan confirmed osteomyelitis. On 12/20/24, he underwent right great toe amputation (POD#1). Wound cultures returned positive for Serratia marcescens and Enterobacter. He was transitioned to IV ertapenem (Invanz) per podiatry, with PICC placement for outpatient therapy. During admission, he developed volume overload after IV fluids, requiring discontinuation of fluids and initiation of IV furosemide. He also experienced hyperkalemia (treated with patiromer; resolved, no EKG changes). Junior catheter was placed for urinary retention, with renal function stabilizing at baseline. Repeat venous Doppler identified non- occluding thrombi in the greater saphenous vein below the knee (SVT). Given recent surgery and risk for propagation, he was started on Eliquis 10 mg BID 7 days, then 5 mg BID for a minimum 45-day course, per CHEST VTE guidelines (2020) and updated evidence (Di Nisio 2023; SCOOBY 2024) with hematology follow up. He is clinically stable, pain improved, and ambulating with assistance. Discharge planned to [facility] for continued IV antibiotics, wound care, rehabilitation, and monitoring. Podiatry to follow OP. Patient to dc with junior cath for urine retention with Urology follow up. Telemetry noted intermittent PVCs in trigeminy pattern. Patient remained hemodynamically stable and asymptomatic throughout. Electrolytes reviewed and corrected (K 5.1, stable; Mg/Ca within acceptable range). No ischemic changes on EKG. Given stability and ICD in place, patient is considered safe for discharge with plan for BMP recheck within 2448 hrs at SNF and return precautions for chest pain, syncope, or sustained arrhythmia. Discharge Note New Diagnosis: Osteomyelitis New Medications: Invanz/Eliquis 10mg bid x 7 days then 5mg bid there after / [place] Follow Up: Urology, PCP, hematology, podiatry Results pending: Bone biopsy I spent 35 minutes [id number] with the patient on the day of discharge performing discharge exam, discussing hospital stay and discharge instructions with patient and caregivers, preparation of discharge records, prescriptions & referral forms and addressing any questions/concerns the patient had as documented above. - Vitals & Intake/Output Vital Signs: Vital Signs Temperature 98.8 F 12/21/24 08:00 Pulse Rate 94 H 12/21/24 08:00 Respiratory Rate 17 12/21/24 08:00 Blood Pressure 169/75 12/21/24 08:00 O2 Sat by Pulse Oximetry 92 L 12/21/24 08:00 Intake & Output: Intake & Output 12/18/24 12/19/24 12/20/24 12/21/24 11:59 11:59 11:59 11:59 Intake Total 161 923 2022 840 Output Total 100 2325 1550 5600 Balance 572 -0472 -123 -4965 Weight 109.8 kg 116 kg 114.8 kg 114.8 kg - Lab Result Diagrams: 12/21/24 05:20 12/21/24 05:20 Lab Results-Last 24 Hrs: Lab Results-Last 24 Hours 12/20/24 12/20/24 12/20/24 Range/Units 11:22 11:45 16:30 WBC (4.23-9.07) x10^3/uL RBC (4.63-6.08) x10^6/uL Hgb (13.7-17.5) g/dL Hct (40.1-51.0) % MCV (79.0-92.2) fL MCH (25.7-32.2) pg MCHC (32.3-36.5) g/dL Plt Count (163-337) x10^3/uL MPV (9.4-12.4) fL Sodium (135-145) mmol/L Potassium (3.5-5.1) mmol/L Chloride (98-107) mmol/L Carbon Dioxide (22-30) mmol/L Anion Gap (5-15) MEQ/L BUN (9-20) mg/dL Creatinine (0.66-1.25) mg/dL Estimated GFR ML/MIN Glucose (74-106) mg/dL POC Glucometer 221 H 225 H (74 to 106) mg/dL Calcium (8.4-10.2) mg/dL Magnesium (1.6-2.3) mg/dL Total Bilirubin (0.2-1.3) mg/dL AST (17-59) U/L ALT (0-50) U/L Alkaline Phosphatase (38-126) U/L Serum Total Protein (6.3-8.2) g/dL Albumin (3.5-5.0) g/dL Vancomycin Trough 8.50 L (10-20) ug/mL 12/20/24 12/21/24 12/21/24 Range/Units 20:54 05:20 05:20 WBC 14.1 H (4.23-9.07) x10^3/uL RBC 3.67 L (4.63-6.08) x10^6/uL Hgb 11.3 L (13.7-17.5) g/dL Hct 35.4 L (40.1-51.0) % MCV 96.5 H (79.0-92.2) fL MCH 30.8 (25.7-32.2) pg MCHC 31.9 L (32.3-36.5) g/dL Plt Count 146 L (163-337) x10^3/uL MPV 10.0 (9.4-12.4) fL Sodium 133 L (135-145) mmol/L Potassium 5.1 (3.5-5.1) mmol/L Chloride 96 L (98-107) mmol/L Carbon Dioxide 32 H (22-30) mmol/L Anion Gap 10.7 (5-15) MEQ/L BUN 26 H (9-20) mg/dL Creatinine 0.73 (0.66-1.25) mg/dL Estimated GFR 94.9 ML/MIN Glucose 215 H (74-106) mg/dL POC Glucometer 151 H (74 to 106) mg/dL Calcium 8.7 (8.4-10.2) mg/dL Magnesium 2.0 (1.6-2.3) mg/dL Total Bilirubin 0.70 (0.2-1.3) mg/dL AST 74 H (17-59) U/L ALT 29 (0-50) U/L Alkaline Phosphatase 67 (38-126) U/L Serum Total Protein 6.1 L (6.3-8.2) g/dL Albumin 3.8 (3.5-5.0) g/dL Vancomycin Trough (10-20) ug/mL 12/21/24 Range/Units 07:22 WBC (4.23-9.07) x10^3/uL RBC (4.63-6.08) x10^6/uL Hgb (13.7-17.5) g/dL Hct (40.1-51.0) % MCV (79.0-92.2) fL MCH (25.7-32.2) pg MCHC (32.3-36.5) g/dL Plt Count (163-337) x10^3/uL MPV (9.4-12.4) fL Sodium (135-145) mmol/L Potassium (3.5-5.1) mmol/L Chloride (98-107) mmol/L Carbon Dioxide (22-30) mmol/L Anion Gap (5-15) MEQ/L BUN (9-20) mg/dL Creatinine (0.66-1.25) mg/dL Estimated GFR ML/MIN Glucose (74-106) mg/dL POC Glucometer 192 H (74 to 106) mg/dL Calcium (8.4-10.2) mg/dL Magnesium (1.6-2.3) mg/dL Total Bilirubin (0.2-1.3) mg/dL AST (17-59) U/L ALT (0-50) U/L Alkaline Phosphatase (38-126) U/L Serum Total Protein (6.3-8.2) g/dL Albumin (3.5-5.0) g/dL Vancomycin Trough (10-20) ug/mL Micro Results-Entire Visit: Microbiology 12/19/24 17:52 Anaerobic Culture Result 4 - Final Foot - Right Not Reportable Anaerobic Bacterial Sensitivity - Final Not Reportable 12/19/24 13:25 Urine Culture - Preliminary Catherized NO GROWTH TO DATE 12/18/24 11:44 Wound Culture - Final Toe - R Big (Greater) Enterobacter Clocae Complex 12/18/24 12:08 Wound Culture - Final Foot - Right Serratia Marcescens 12/17/24 22:22 Blood Culture - Preliminary Blood 12/17/24 22:32 Blood Culture - Preliminary Blood Accuchecks Date 12/21/24 Date 12/20/24 Time 08:14 Time 16:38 - Radiology Exams Ordered Rad Exams-Entire Visit: Radiology Procedures Category Date Time Status CHEST 1 VIEW (PORTABLE) Stat Exams 12/20/24 14:29 Completed ECHO W/2D AND DOPPLER [US] Urgent Exams 12/19/24 10:06 Taken VENOUS UNILAT/LIMITED EXTREMIT [US] Stat Exams 12/20/24 11:44 Completed - Procedures and Test Procedures and Tests throughout Hospitalization: Therapy Orders & Screens 12/18/24 05:15 Oxygen Nasal Cannula 2 lpm Comment: Diagnosis: Sepsis 12/18/24 16:33 Incentive Spirometry UD Comment: Diagnosis: SEPSIS, OSTEOMYELITIS 12/18/24 20:03 Respiratory Therapy Assessment DAILY Comment: Diagnosis: SEPSIS, OSTEOMYELITIS 12/20/24 10:45 PT Eval & Treat ( Order) ONCE Reason for Eval:: non wtbearing Diagnosis: SEPSIS, OSTEOMYELITIS Discharge Exam General Appearance: no apparent distress Neurologic Exam: alert, oriented x 3, cooperative Eye Exam: PERRL Ears, Nose, Throat Exam: normal ENT inspection Neck Exam: normal inspection Respiratory Exam: normal breath sounds, lungs clear Cardiovascular Exam: regular rate/rhythm, normal heart sounds Gastrointestinal/Abdomen Exam: soft, normal bowel sounds Male Genitalia Exam: deferred Rectal Exam: deferred Back Exam: normal inspection Extremity Exam: other (RLE with surgical dressing CDI) Wound Assessment: Skin/Wound Assessment Wound/Incision Assessment Start: 12/18/24 02:08 Text: Status: Active Freq: Q6H Protocol: Document 12/21/24 05:00 (Rec: 12/21/24 05:20 [id number]) Wound/Incision Assessment Right outer ankle Wound Assessment Shift Assessment Wound Type Pressure Ulcer Wound Stage Deep Tissue Injury Drainage Amount None Drainage Odor None/Absent Final Diagnosis/Problem List - Final Discharge Diagnosis/Problem (1) Sepsis Current Visit: Yes Status: Acute Assessment & Plan: Broad-spectrum antibiotics narrowed to Invanz 1g x 14 days after cultures. Afebrile, WBC trending down (14.1 on 12/21). Blood cultures pendingNGTD (2) Cellulitis of right leg Current Visit: Yes Status: Acute Assessment & Plan: see above Code(s): L03.115 - CELLULITIS OF RIGHT LOWER LIMB (3) Osteomyelitis of right foot Current Visit: Yes Status: Acute Assessment & Plan: Confirmed on bone scan, cultures with Serratia and Enterobacter. Continue IV ertapenem (Invanz) 1g q24h via PICC for 14 days (per podiatry, 2024 IDSA osteomyelitis guidance). Podiatry follow-up for wound care and surgical site monitoring. PT/OT for mobility and discharge readiness. Code(s): M86.9 - OSTEOMYELITIS, UNSPECIFIED (4) Hyperkalemia Current Visit: Yes Status: Acute Assessment & Plan: resolved Code(s): E87.5 - HYPERKALEMIA (5) Edema of right lower extremity Current Visit: Yes Status: Acute Assessment & Plan: IV fluids discontinued. IV furosemide initiated, transitioned to oral as tolerated. Strict I/O, daily weights, electrolyte monitoring. Code(s): R60.0 - LOCALIZED EDEMA (6) Chest pain Current Visit: Yes Status: Acute Assessment & Plan: Non-cardiac etiology favored; no ischemic EKG changes. Continue CAD secondary prevention: aspirin, statin, BP/diabetes control. Outpatient follow-up with cardiology. Return precautions for recurrent chest pain. Chronic conditions (CAD, HTN, diabetes, asthma, prostate disease, pacemaker/defibrillator) Resume home therapies as appropriate. Insulin for diabetes, inhalers for asthma, cardiac meds for CAD/HTN. Outpatient follow-up with primary care, cardiology, endocrinology, and urology. 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 (10) Asthma Current Visit: Yes Status: Acute Code(s): J45.909 - UNSPECIFIED ASTHMA, UNCOMPLICATED (11) BPH (benign prostatic hyperplasia) Current Visit: Yes Status: Acute Code(s): N40.0 - BENIGN PROSTATIC HYPERPLASIA WITHOUT LOWER URINRY TRACT SYMP (12) Obesity Current Visit: Yes Status: Acute Code(s): E66.9 - OBESITY, UNSPECIFIED (13) Urinary retention Current Visit: Yes Status: Acute Code(s): R33.9 - RETENTION OF URINE, UNSPECIFIED (14) WILDA (acute kidney injury) Current Visit: Yes Status: Acute Code(s): N17.9 - ACUTE KIDNEY FAILURE, UNSPECIFIED - Discharge Discharge Date: 12/21/24 Disposition: DC TO ANY "OTHER" [facility] Condition: Stable Prescriptions: New Albuterol/Ipratropium 3ml Neb* [DUONEB 0.5-3 MG/3 ml Neb] 3 ml IH Q4HPRN PRN PRN Reason: Shortness Of Breath/Wheezing Apixaban [Eliquis 2.5 mg Tablet] See Rx Instructions .ROUTE .COMPLEX tablet Ertapenem Sodium [Invanz ] 1 g IV Q24H 14 Days Amlodipine Besylate 5 mg [Norvasc 5 mg] 5 mg PO QAM tablet Hydrocodone/Acetaminophen [[place] 10-325 mg] 1 each PO Q4H PRN 3 Days #18 tablet MDD 6 PRN Reason: Pain Continue Furosemide 20 mg [Lasix 20 mg] 40 mg PO DAILY Zolpidem Tartrate 10 mg [Ambien 10 MG] 10 mg PO HS Vitamin E 400 unit PO DAILY Tamsulosin HCl [Flomax] 0.4 mg PO HS Multivitamin [Multivitamins] 1 each PO HS Magnesium Oxide 400 mg [Mag-Ox 400] 400 mg PO BID Cholecalciferol (Vitamin D3) [Vitamin D] 2,000 unit PO DAILY carvediloL [Coreg] 25 mg PO BID Acetaminophen [Tylenol Extra Strength] 500 mg PO Q6H PRN PRN Reason: Pain Insulin NPH/Reg 70/30 [Novolin 70/30] 40 unit SQ UD Famotidine [Pepcid] 40 mg PO DAILY Gabapentin [Neurontin] 300 mg PO BID Fluticasone/Vilanterol [Breo Ellipta 200-25 Mcg Inhalr] See Rx Instructions .ROUTE .COMPLEX Folic Acid 1 mg [Folate 1 mg] 1 mg PO DAILY Prednisone 10 mg [Deltasone 10 mg] 5 mg PO DAILY Methotrexate Sodium 2.5 mg [Trexall 2.5 mg] 2.5 mg PO UD Tocilizumab [Actemra Actpen] 1 mg SQ WEEKLY Finasteride 5 mg [Proscar 5 MG] 5 mg PO DAILY Eplerenone 25 mg PO DAILY Discontinued Aspirin 81 mg PO DAILY Amlodipine Besylate/Benazepril [Lotrel 10-20 mg Capsule] 1 each PO DAILY Additional Instructions: [facility] / SNF Instructions - Will need urology for urinary retention follow up appt made Junior catheter routine care Wound Care per podiatry -MWF change with iodine, Adaptic, 4 x 4, kerlix and latrice with minimum compression dressing to the tibial tuberosity Follow-Up Podiatry: within 1 week. Primary care: 12 weeks. Cardiology: as scheduled (monitor arrhythmia burden, ICD checks). Urology: for Junior management/voiding trial. Medications / Therapy IV Ertapenem (Invanz) via PICC for 14 days (Started 12/20/24). Eliquis 10 mg PO BID 7 days, (start date 12/20/24 received night dose)then 5 mg BID thereafter (minimum 45-day course). Furosemide per home dose or adjusted regimen. Continue chronic home meds (insulin, cardiac, pulmonary, prostate meds) unless otherwise specified. Monitoring / Labs BMP in 2448 hrs (trend potassium, creatinine). CBC weekly while on antibiotics and anticoagulation. Monitor electrolytes closely (K, Mg, Ca); keep K >4.0, Mg >2.0. Daily weights, strict I/Os. Devices / Lines PICC line for IV antibiotics: monitor site for erythema, drainage, malfunction. Junior catheter: monitor urine output, catheter care; consider voiding trial per urology/PCP guidance. Wound Care Right great toe amputation site: follow podiatry wound care orders. Dressing changes per podiatry protocol. Notify provider of erythema, drainage, dehiscence, or worsening pain. Rehab / Therapy PT/OT to evaluate for mobility, ambulation, and ADLs. Encourage progressive activity as tolerated. Follow up with: JESUS JONES DPM [ACTIVE STAFF, PODIATRY] ANGEL VERMA MD [Primary Care Provider, INTERNAL MEDICINE] - 01/02/25 9:45 am CHEMO PARKER [COURTESY STAFF, UROLOGY] - Call for Appointment Referral Note: Needs appt next week
[2024-12-21 12:25] VITALS: RESP 18; O2SAT 91
[2024-12-21 12:26] LABS: Slide Review YES
[2024-12-21 16:43] VITALS: BP 138/65; PULSE 84; TEMP 98.2
--- NOTE | 2024-12-23 12:23 | OP ---
SURGERY DATE/TIME: 12/19/2024 [id number] PREOPERATIVE DIAGNOSES: 1) Osteomyelitis. 2) Diabetic foot wound. 3) Previous history of amputation to right foot. 4) Diabetes. 5) Diabetic peripheral neuropathy. 6) Peripheral vascular disease. POSTOPERATIVE DIAGNOSES: 1) Osteomyelitis. 2) Diabetic foot wound. 3) Previous history of amputation to right foot. 4) Diabetes. 5) Diabetic peripheral neuropathy. 6) Peripheral vascular disease. PROCEDURES: 1) Amputation, right hallux to level of metatarsophalangeal joint. 2) Delayed primary closure of dorsal foot wound. SURGEON: Ishmael Paige MD LEGAL RESEARCHER: DANIELLA Fernando ANESTHESIA: Monitored anesthesia care with intraoperative local block. HEMOSTASIS: Pressure dressing. ESTIMATED BLOOD LOSS: Approximately 5 mL. MATERIALS: 4-0 Monocryl and 3-0 nylon. INJECTABLES: 5 mL of 1:1 mixture of 1% lidocaine plain and 0.5% bupivacaine plain injected in a V-block type fashion at the dorsal midfoot. INDICATIONS FOR PROCEDURE: The patient is a very pleasant, 74-year-old male, very well known to my service. In recent weeks, patient has been putting off his treatment in order to get his life under control. From that standpoint, patient has been having routine checkups. However, with even positive cultures in an outpatient setting developed sepsis and cellulitis to the right lower extremity as a result of 2 foot wounds on the right lower extremity that we have been dealing conservatively with in an outpatient setting. At this time, patient was diagnosed with sepsis on admission. Because of the cellulitis to the right lower extremity, we did do a workup to better assess the reason why he has developed the cellulitis. Of particular interest, we did focus on a medial interphalangeal joint hallux wound that was on the right foot as well as a dorsal foot wound that did open up within the last 4 weeks. From that standpoint, cultures were obtained, demonstrating a gram-negative bacteria as well as a bone scan that was obtained, demonstrates some indications of osteomyelitis to the right hallux. Discussion was held in regard to options either IV antibiotics and the sensitivity and specificity of a bone scan with the patient and his family. DESCRIPTION OF PROCEDURE AND FINDINGS: At this time, patient has consented to going forward with the amputation of the great toe of the right foot as well as a delayed primary closure to the dorsal foot wound at a separate location. Patient has been made aware of all risks, complications, and benefits of surgical intervention, including but not limited to infection, hematoma, seroma, possibility of delayed wound healing, non-wound healing, and possible need for further surgical intervention at a later date. No guarantees were provided as to the outcome. Plenty of time was allowed for the patient to ask questions, which were answered to his apparent satisfaction. It is at this time we decided to proceed. Patient was brought into the operating room, placed on the operating room table in the supine position. Monitored anesthesia care was administered and the patient was adequately sedated. Once the patient was sedated, the right lower extremity was prepped and draped in a typical sterile fashion and lowered on the surgical field. At this time, attention was directed to the great toe where a medial racquet-type incision was made circumferentially around the toe, extending to the medial IPJ for the disc articulation portion of the procedure. This was carried out, utilizing a 10 blade. The 10 blade was then utilized to circumferentially cut perpendicular to the access of the skin, leaving full-thickness margins. This was utilized to disarticulate the hallux. Once the hallux was removed from the operative site, it was moved to the back table where 2 biopsies were taken, 1 bone biopsy, 1 gross pathology was sent as well as a bone culture. It was noted at this time that there were significant softening of the bone with intramedullary purulence when the bone biopsies were obtained. At this time, copious amounts of irrigation were utilized in the form of Bactisure and sterile saline to flush the surgical site. Then, 4-0 Monocryl and 3-0 nylon were utilized in a simple buried interrupted-type fashion and then a 3-0 nylon was utilized in a horizontal mattress to javi the skin edges. Following this, the wound over the dorsal midfoot measuring approximately 2.5 cm x 0.8 x 0.3 cm was then excised. It was noted due to his previous surgery for amputation, that there was a significant amount of scar tissue. This was cleansed with copious amounts of sterile saline after excision. The wound edges were undermined in order to gain better mobilization of the skin edges. It was, at this time, 4-0 Monocryl was then utilized and a simple interrupted buried-type fashion and then 3-0 nylon was utilized in a simple interrupted fashion to coapt the skin. A dressing consisting of Betadine, Adaptic, 4 x 4, Kerlix, ABD, and Valentin was then applied to the patient's right lower extremity. The patient was then reversed from anesthesia and returned to the postoperative anesthesia care unit with vital signs stable and the vascular status intact. The patient handled the anesthesia as well as the procedure without significant complication. Postoperative orders as indicated in the patient's discharge chart.
[2024-12-24] MEDS ORDERED: TREXALL 2.5 MG PO SCH (10:00)
== END 2024-12-21 17:00 | DRG 854 ==
LOC: ED 21:47 → MED SURG 12-18 02:04 → OBSVTOIN 12-18 08:07
PROVIDERS: ADMIT Internal Medicine; ATTEND Internal Medicine
PROC: 2W1LX6Z Compression of Right Lower Extremity using Pressure Dressing (ICD-10-PCS; principal; 2024-12-19)
PROC: 0Y6P0Z0 Detachment at Right 1st Toe, Complete, Open Approach (ICD-10-PCS; 2024-12-19)
PROC: 0JQQ0ZZ Repair Right Foot Subcutaneous Tissue and Fascia, Open Approach (ICD-10-PCS; 2024-12-19)
DX: A41.9 Sepsis, unspecified organism (principal); L03.115 Cellulitis of right lower limb; M86.9 Osteomyelitis, unspecified; N17.9 Acute kidney failure, unspecified; E11.9 Type 2 diabetes mellitus without complications; R60.0 Localized edema; L08.9 Local infection of the skin and subcutaneous tissue, unspecified; E78.5 Hyperlipidemia, unspecified; I10 Essential (primary) hypertension; N40.0 Benign prostatic hyperplasia without lower urinary tract symptoms; I25.10 Atherosclerotic heart disease of native coronary artery without angina pectoris; E87.5 Hyperkalemia; R07.9 Chest pain, unspecified; J45.909 Unspecified asthma, uncomplicated; E11.621 Type 2 diabetes mellitus with foot ulcer; R33.9 Retention of urine, unspecified; E66.9 Obesity, unspecified; E11.42 Type 2 diabetes mellitus with diabetic polyneuropathy; E11.51 Type 2 diabetes mellitus with diabetic peripheral angiopathy without gangrene; Z79.899 Other long term (current) drug therapy; Z79.4 Long term (current) use of insulin; Z89.421 Acquired absence of other right toe(s)
CPT/HCPCS: 13160; 28820; 29580; 36415; 36573; 71045; 71046; 71260; 78315; 80053; 80202; 81001; 82947; 83036; 83605; 83735; 83880; 84132; 84145; 84484; 85025; 85027; 85379; 85610; 85730; 86308; 87040; 87070; 87075; 87077; 87086; 87186; 87637; 93005; 93041; 93268; 93306; 93971; 94640; 94760; 96361; 96365; 96374; 96375; 97161; 99024; 99221; 99291; A6260; A9503; Q3014

== ENCOUNTER 2025-01-22 14:43 | Observation (INO) | payer MEDICARE, OTHER ==
--- NOTE | 2025-01-22 15:21 | PCM.HP ---
History of Present Illness - Chief Complaint Chief Complaint: Osteomyelitis Date: 01/22/25 History of Present Illness: is a 74-year-old male with a past medical history of hypertension, hyperlipidemia, asthma, obesity, coronary artery disease, type II diabetes mellitus, and pacemaker/defibrillator placement. He was a direct admission by podiatry (Dr. Quiñones) for evaluation and management of a left ankle wound and abscess that was drained earlier today, associated with surrounding cellulitis. The patient also has a right great toe infection with a recent history of osteomyelitis. He was previously hospitalized from 12/17 to 12/21 and subsequently transferred to a rehabilitation facility for continued IV antibiotic therapy for right great toe osteomyelitis. Wound cultures from his prior admission were positive for Serratia marcescens and Enterobacter species, for which he was discharged on IV Invanz. Will continue IV Invanz and the addition of vancomycin. The patient will remain NPO after midnight in preparation for incision and drainage (I&D) s cheduled for the morning. - Review of Systems Constitutional: No Fever, No Chills Eyes: No Symptoms Ears, Nose, & Throat: No Symptoms Respiratory: No Cough, No Short Of Breath Cardiac: No Chest Pain, No Edema, No Syncope Abdominal/Gastrointestinal: No Abdominal Pain, No Nausea, No Vomiting, No Diarrhea Genitourinary Symptoms: No Dysuria Musculoskeletal: No Back Pain, No Neck Pain Skin: Cellulitis (RLE- ankle/skin region), Skin Lesions, Other (recent right great toe amputation), No Rash Neurological: No Dizziness, No Focal Weakness, No Sensory Changes Psychological: No Symptoms Endocrine: No Symptoms Hematologic/Lymphatic: No Symptoms Immunological/Allergic: No Symptoms Medications & Allergies Home Medications: Home Medication List Acetaminophen [Tylenol Extra Strength] 500 mg PO Q6H PRN 10/14/17 [History Confirmed 01/22/25] Cholecalciferol (Vitamin D3) [Vitamin D] 2,000 unit PO DAILY 10/14/17 [History Confirmed 01/22/25] Furosemide 20 mg [Lasix 20 mg] 40 mg PO DAILY 10/14/17 [History Confirmed 01/22/25] Magnesium Oxide 400 mg [Mag-Ox 400] 400 mg PO BID 10/14/17 [History Confirmed 01/22/25] Multivitamin [Multivitamins] 1 each PO HS 10/14/17 [History Confirmed 01/22/25] Tamsulosin HCl [Flomax] 0.4 mg PO HS 10/14/17 [History Confirmed 01/22/25] Vitamin E 400 unit PO DAILY 10/14/17 [History Confirmed 01/22/25] Zolpidem Tartrate 10 mg [Ambien 10 MG] 10 mg PO HS 10/14/17 [History Confirmed 01/22/25] carvediloL [Coreg] 25 mg PO BID 10/14/17 [History Confirmed 01/22/25] Famotidine [Pepcid] 40 mg PO DAILY 07/13/18 [History Confirmed 01/22/25] Insulin NPH/Reg 70/30 [Novolin 70/30] 40 unit SQ UD 07/13/18 [History Confirmed 01/22/25] Fluticasone/Vilanterol [Breo Ellipta 200-25 Mcg Inhalr] See Rx Instructions .ROUTE .COMPLEX 05/31/22 [History Confirmed 01/22/25] Gabapentin [Neurontin] 300 mg PO BID 05/31/22 [History Confirmed 01/22/25] Eplerenone 25 mg PO DAILY 12/17/24 [History Confirmed 01/22/25] Finasteride 5 mg [Proscar 5 MG] 5 mg PO DAILY 12/17/24 [History Confirmed 01/22/25] Folic Acid 1 mg [Folate 1 mg] 1 mg PO DAILY 12/17/24 [History Confirmed 01/22/25] Methotrexate Sodium 2.5 mg [Trexall 2.5 mg] 2.5 mg PO UD 12/17/24 [History Confirmed 12/18/24] Prednisone 10 mg [Deltasone 10 mg] 5 mg PO DAILY 12/17/24 [History Confirmed 01/22/25] Tocilizumab [Actemra Actpen] 1 mg SQ WEEKLY 12/17/24 [History Confirmed 01/22/25] Albuterol/Ipratropium 3ml Neb* [DUONEB 0.5-3 MG/3 ml Neb] 3 ml IH Q4HPRN PRN 12/21/24 [Rx] Amlodipine Besylate 5 mg [Norvasc 5 mg] 5 mg PO QAM tablet 12/21/24 [Rx] Ertapenem Sodium [Invanz ] 1 g IV Q24H 14 Days 12/21/24 [Rx] Hydrocodone/Acetaminophen [[place] 10-325 mg] 1 each PO Q4H PRN 3 Days #18 tablet MDD 6 12/21/24 [Rx Confirmed 01/22/25] Apixaban [Eliquis 2.5 mg Tablet] 5 mg PO BID 01/22/25 [History Confirmed 01/22/25] Allergies/Adverse Reactions: Allergies Allergy/AdvReac Type Severity Reaction Status Date / Time tizanidine Allergy Severe Anaphylactic Verified 12/18/24 02:43 Reaction moxifloxacin [From Avelox] Allergy Mild Fainting Verified 12/18/24 02:43 midazolam [From Versed] AdvReac Irregular Verified 12/18/24 02:43 Heart Beat Penicillins AdvReac Hives Verified 12/18/24 02:43 spironolactone AdvReac Irregular Verified 12/18/24 02:43 [From Aldactone] Heart Beat - Past Medical History Past Medical History: Yes Neurological History: No Pertinent History ENT History: Cataracts Cardiac History: High Cholesterol, Hypertension Respiratory History: Asthma Endocrine Medical History: No Pertinent History Musculoskelatal History: No Pertinent History GI Medical History: No Pertinent History History: No Pertinent History Pyscho-Social History: No Pertinent History Male Reproductive Disorders: No Pertinent History Comment: PMH: PSH: - Past Surgical History Past Surgical History: Yes Neuro Surgical History: No Pertinent History Cardiac History: Cardiac Catheterization, Internal Defibrillator, Pacemaker Respiratory Surgery: No Pertinent History GI Surgical History: Other Genitourinary Surgical Hx: Other Musculskeletal Surgical Hx: Joint Replacement, Orthopedic Surgery Male Surgical History: No Pertinent History Other Surgical History: CARPAL TUNNEL, CHYLOUS MESENTERY CYST (partial small intestine removed), KIDNEY STONE, RTK, R ankle fx, Significant Family History: no pertinent family hx - Social History Smoking Status: Never smoker Exposure to second hand smoke: No Alcohol: None Drug Use: none - Social Determinants of Health Will the patient participate in the screening: Yes Do you worry about a steady place to live?: No Do you have any problems with any of the following?: No known problems In the past 12 months,have you had to go without utilities?: No Have you or anyone in your house had to go without enough: No Transportation Issues: No Has anyone in your support network made you feel unsafe?: No Does the patient want assistance with any of the above?: No - Physical Exam Vital Signs: Vital Signs - 24 hr Temp Pulse Resp BP BP Pulse Ox 01/22/25 14:55 97.7 F 73 22 133/64 97 01/22/25 14:48 97.7 F 73 22 133/64 97 General Appearance: no apparent distress, alert Neurologic Exam: alert, oriented x 3, cooperative, normal mood/affect, nml cerebellar function, nml station & gait, sensation nml, No motor deficits Eye Exam: PERRL/EOMI, eyes nml inspection Ears, Nose, Throat Exam: normal ENT inspection, TMs normal, pharynx normal, moist mucous membranes Neck Exam: normal inspection, non-tender, supple, full range of motion Respiratory Exam: normal breath sounds, lungs clear, No respiratory distress Cardiovascular Exam: regular rate/rhythm, normal heart sounds, normal peripheral pulses Gastrointestinal/Abdomen Exam: soft, normal bowel sounds, No tenderness, No mass Back Exam: normal inspection, normal range of motion, No CVA tenderness, No vertebral tenderness Extremity Exam: normal inspection, normal range of motion, pelvis stable Skin Exam: normal color, warm, dry, other (RLE cellulitis, abcess drained by podiatry today in office), No rash Lymphatic Exam: No adenopathy Assessment/Plan (1) Toe infection Current Visit: No Status: Chronic Assessment & Plan: - Pt recently admitted for this and d/c'd to rehab for IV Invanz OP - Ongoing with recent amputation 2 weeks ago. - CBC, CMP pending - BC x2 - Prostat 64 - WBC normal Code(s): L08.9 - LOCAL INFECTION OF THE SKIN AND SUBCUTANEOUS TISSUE, UNSP (2) Abscess of skin of right ankle Current Visit: Yes Status: Acute Assessment & Plan: - Drained in office by podiatry today with cultures pending - Pt to have I&D in OR tomorrow with Dr. Quiñones- NPO after midnight - Vancomycin and Invanz IV - Podiatry consult IP Code(s): L02.415 - CUTANEOUS ABSCESS OF RIGHT LOWER LIMB (3) Osteomyelitis of right foot Current Visit: No Status: Chronic Assessment & Plan: - Chronic - podiatry consult Code(s): M86.9 - OSTEOMYELITIS, UNSPECIFIED (4) Cellulitis Current Visit: Yes Status: Acute Assessment & Plan: - RLE - IV antibiotics Code(s): L03.90 - CELLULITIS, UNSPECIFIED (5) CAD (coronary artery disease) Current Visit: No Status: Chronic Assessment & Plan: - Chronic - No acute concern - Continue home meds Code(s): I25.10 - ATHSCL HEART DISEASE OF [place] CORONARY ARTERY W/O ANG PCTRS (6) Diabetes mellitus with insulin therapy Current Visit: No Status: Chronic Assessment & Plan: - Accuchecks AC/HS - Continue home dose of insulin - S/S started - A1C 6.31- Controlled Code(s): E11.9 - TYPE 2 DIABETES MELLITUS WITHOUT COMPLICATIONS; Z79.4 - [employer] (CURRENT) USE OF INSULIN (7) HTN (hypertension) Current Visit: No Status: Chronic Assessment & Plan: - BP stable - Continue home meds Code(s): I10 - ESSENTIAL (PRIMARY) HYPERTENSION (8) Obesity Current Visit: No Status: Chronic Assessment & Plan: - Advised ADA diet and exercise control VTE: SCD's- hold blood thinners for procedure tomorrow PPI: Protonix Next of KIN: D.C plan: 2-3 days Code status: Full PLan of care time > 40 minutes Code(s): E66.9 - OBESITY, UNSPECIFIED Telemedicine Encounter - Telemedicine Encounter Telemedicine Encounter: "The entirety of this encounter was performed via Telemedicine" This visit was performed using real-time audio and video connection between my location and thepatients locationwith the assistance of a surrogateat the patients location. Written or verbal consent was obtained from the patient/guardian to perform this visit [facility]. Any patient questions regarding the telemedicine interaction were answered.
[2025-01-22 15:22] LABS: Hematocrit 39.9 % (40.1-51.0); Hemoglobin 12.7 g/dL (13.7-17.5); Mean Corpuscular Hemoglobin 30.7 pg (25.7-32.2); Mean Corpuscular Hgb Concent. 31.8 g/dL (32.3-36.5); Platelet Count 202 x10^3/uL (163-337); Red Blood Count 4.14 x10^6/uL (4.63-6.08); White Blood Count 6.1 x10^3/uL (4.23-9.07)
[2025-01-22 15:35] LABS: Calcium 9.2 mg/dL (8.4-10.2); Carbon Dioxide 30.0 mmol/L (22-30); Creatinine 1 1.08 mg/dL (0.66-1.25); EST GLOMERULAR FILTRATION RATE 71.6 ML/MIN; Glucose 90.0 mg/dL (74-106); Potassium 4.9 mmol/L (3.5-5.1); SGOT/AST 30.0 U/L (17-59); SGPT/ALT 18.0 U/L (0-50); Total Protein 7.3 g/dL (6.3-8.2)
[2025-01-22] MEDS ORDERED: NORCO 10-325 MG PO PRN (15:58)
[2025-01-22] MEDS ORDERED: NON-FORMULARY ITEM (Fluticasone/Vilanterol [Breo Ellipta 200-25 Mcg Inhalr] 1 EACH Blst.W. SCH (16:00)
[2025-01-22] MEDS ORDERED: TREXALL 2.5 MG PO SCH (16:00)
[2025-01-22] MEDS ORDERED: TOCILIZUMAB 162 MG/0.9 ML SQ SCH (16:00)
[2025-01-22] MEDS: VANCOMYCIN 1.5 GRAM/300 ML BAG 1.5 GM/300 ML PIGGYBACK IV ONE (17:06)
[2025-01-22] MEDS ORDERED: MEDICATION INTERVENTION MC SCH ×4 (17:45)
[2025-01-22] MEDS: THERAGRAN MULTIVITAMIN PO SCH (21:26)
[2025-01-22] MEDS: Flomax 0.4 MG PO SCH (21:26)
[2025-01-22] MEDS: NEURONTIN PO SCH (21:26)
[2025-01-22] MEDS: Ambien 10 MG PO SCH (21:26)
[2025-01-22] MEDS: MAG-OX 400 PO SCH (21:27)
[2025-01-22] MEDS: COREG 12.5 MG PO SCH (21:27)
[2025-01-22] MEDS ORDERED: NON-FORMULARY ITEM (Multivitamin [Multivitamins] 1 EACH Capsule) PO SCH (22:00)
[2025-01-22] MEDS ORDERED: NON-FORMULARY ITEM (Carvedilol [Coreg] 25 MG Tablet) PO SCH (22:00)
[2025-01-22] MEDS: TYLENOL 325 MG PO PRN (23:08)
[2025-01-23 05:09] LABS: Hematocrit 32.8 % (40.1-51.0); Hemoglobin 10.4 g/dL (13.7-17.5); Mean Corpuscular Hemoglobin 30.4 pg (25.7-32.2); Mean Corpuscular Hgb Concent. 31.7 g/dL (32.3-36.5); Platelet Count 164 x10^3/uL (163-337); Red Blood Count 3.42 x10^6/uL (4.63-6.08); White Blood Count 4.8 x10^3/uL (4.23-9.07)
[2025-01-23 06:57] LABS: Calcium 8.5 mg/dL (8.4-10.2); Carbon Dioxide 30.0 mmol/L (22-30); Creatinine 1 0.88 mg/dL (0.66-1.25); EST GLOMERULAR FILTRATION RATE 89.7 ML/MIN; Glucose 57.0 mg/dL (74-106); Potassium 3.9 mmol/L (3.5-5.1); SGOT/AST 24.0 U/L (17-59); SGPT/ALT 14.0 U/L (0-50); Total Protein 5.8 g/dL (6.3-8.2)
--- NOTE | 2025-01-23 07:26 | PCM.CONS ---
Podiatry HPI - Consult Date of Consultation Date: 01/23/25 Reason for Consult: cellulitis with abscess left leg, surgical wound dehisence, possible OM. Consulting Provider: JESUS JONES DPM - [facility] History of Present Illness: Mr. Ruiz is a 74-year-old male with significant comorbidities including hypertension, hyperlipidemia, asthma, obesity, coronary artery disease, type II diabetes mellitus, and a pacemaker/defibrillator. He underwent a left hallux amputation in late December, which initially healed well during his rehabilitation stay. However, after discharge from rehab, he developed new wounds on his right leg and amputation wound dehisced. At yesterdays evaluation, I noted drainage of approximately 57 cc of purulent material from a right leg abscess, along with dehiscence at the right great toe amputation site. The patient was directly admitted for evaluation and management of the right ankle wound and associated cellulitis. He has a recent history of right great toe osteomyelitis, previously hosp italized from 12/17 to 12/21, during which wound cultures grew Serratia marcescens and Enterobacter species. He was treated with IV Invanz and subsequently discharged to rehabilitation for continued IV antibiotics. Given the new findings, he will be stated on Vancomycin. The patient is NPO after midnight for a planned incision and drainage (I&D) in the afternoon. Medications & Allergies Home Medications: Home Medication List Acetaminophen [Tylenol Extra Strength] 500 mg PO Q6H PRN 10/14/17 [History Confirmed 01/22/25] Cholecalciferol (Vitamin D3) [Vitamin D] 2,000 unit PO DAILY 10/14/17 [History Confirmed 01/22/25] Furosemide 20 mg [Lasix 20 mg] 40 mg PO DAILY 10/14/17 [History Confirmed 01/22/25] Magnesium Oxide 400 mg [Mag-Ox 400] 400 mg PO BID 10/14/17 [History Confirmed 01/22/25] Multivitamin [Multivitamins] 1 each PO HS 10/14/17 [History Confirmed 01/22/25] Tamsulosin HCl [Flomax] 0.4 mg PO HS 10/14/17 [History Confirmed 01/22/25] Vitamin E 400 unit PO DAILY 10/14/17 [History Confirmed 01/22/25] Zolpidem Tartrate 10 mg [Ambien 10 MG] 10 mg PO HS 10/14/17 [History Confirmed 01/22/25] carvediloL [Coreg] 25 mg PO BID 10/14/17 [History Confirmed 01/22/25] Famotidine [Pepcid] 40 mg PO DAILY 07/13/18 [History Confirmed 01/22/25] Insulin NPH/Reg 70/30 [Novolin 70/30] 40 unit SQ UD 07/13/18 [History Confirmed 01/22/25] Fluticasone/Vilanterol [Breo Ellipta 200-25 Mcg Inhalr] See Rx Instructions .ROUTE .COMPLEX 05/31/22 [History Confirmed 01/22/25] Gabapentin [Neurontin] 300 mg PO BID 05/31/22 [History Confirmed 01/22/25] Eplerenone 25 mg PO DAILY 12/17/24 [History Confirmed 01/22/25] Finasteride 5 mg [Proscar 5 MG] 5 mg PO DAILY 12/17/24 [History Confirmed 01/22/25] Folic Acid 1 mg [Folate 1 mg] 1 mg PO DAILY 12/17/24 [History Confirmed 01/22/25] Methotrexate Sodium 2.5 mg [Trexall 2.5 mg] 2.5 mg PO UD 12/17/24 [History Confirmed 01/22/25] Prednisone 10 mg [Deltasone 10 mg] 5 mg PO DAILY 12/17/24 [History Confirmed 01/22/25] Tocilizumab [Actemra Actpen] 1 mg SQ WEEKLY 12/17/24 [History Confirmed 01/22/25] Albuterol/Ipratropium 3ml Neb* [DUONEB 0.5-3 MG/3 ml Neb] 3 ml IH Q4HPRN PRN 12/21/24 [Rx Confirmed 01/22/25] Amlodipine Besylate 5 mg [Norvasc 5 mg] 5 mg PO QAM tablet 12/21/24 [Rx Confirmed 01/22/25] Ertapenem Sodium [Invanz ] 1 g IV Q24H 14 Days 12/21/24 [Rx Confirmed 01/22/25] Hydrocodone/Acetaminophen [[place] 10-325 mg] 1 each PO Q4H PRN 3 Days #18 tablet MDD 6 12/21/24 [Rx Confirmed 01/22/25] Apixaban [Eliquis 2.5 mg Tablet] 5 mg PO BID 01/22/25 [History Confirmed 01/22/25] Allergies/Adverse Reactions: Allergies Allergy/AdvReac Type Severity Reaction Status Date / Time tizanidine Allergy Severe Anaphylactic Verified 12/18/24 02:43 Reaction moxifloxacin [From Avelox] Allergy Mild Fainting Verified 12/18/24 02:43 midazolam [From Versed] AdvReac Irregular Verified 12/18/24 02:43 Heart Beat Penicillins AdvReac Hives Verified 12/18/24 02:43 spironolactone AdvReac Irregular Verified 12/18/24 02:43 [From Aldactone] Heart Beat - Past Medical History Past Medical History: Yes Neurological History: No Pertinent History ENT History: Cataracts Cardiac History: High Cholesterol, Hypertension Respiratory History: Asthma Endocrine Medical History: No Pertinent History Musculoskelatal History: No Pertinent History GI Medical History: No Pertinent History History: No Pertinent History Pyscho-Social History: No Pertinent History Male Reproductive Disorders: No Pertinent History Comment: PMH: PSH: - Past Surgical History Past Surgical History: Yes Neuro Surgical History: No Pertinent History Cardiac History: Cardiac Catheterization, Internal Defibrillator, Pacemaker Respiratory Surgery: No Pertinent History GI Surgical History: Other Genitourinary Surgical Hx: Other Musculskeletal Surgical Hx: Joint Replacement, Orthopedic Surgery Male Surgical History: No Pertinent History Other Surgical History: CARPAL TUNNEL, CHYLOUS MESENTERY CYST (partial small intestine removed), KIDNEY STONE, RTK, R ankle fx, Significant Family History: no pertinent family hx - Social History Smoking Status: Never smoker Exposure to second hand smoke: No Alcohol: None Drug Use: none - Social Determinants of Health Will the patient participate in the screening: Yes Do you worry about a steady place to live?: No Do you have any problems with any of the following?: No known problems In the past 12 months,have you had to go without utilities?: No Have you or anyone in your house had to go without enough: No Transportation Issues: No Has anyone in your support network made you feel unsafe?: No Does the patient want assistance with any of the above?: No Physical Exam - Narrative Narrative Physical Exam: Podiatry Physical Exam Results - Labs Lab/Micro Results: Lab Results-Last 24 Hours 01/22/25 01/22/25 01/22/25 Range/Units 15:15 15:15 16:22 WBC 6.1 (4.23-9.07) x10^3/uL RBC 4.14 L (4.63-6.08) x10^6/uL Hgb 12.7 L (13.7-17.5) g/dL Hct 39.9 L (40.1-51.0) % MCV 96.4 H (79.0-92.2) fL MCH 30.7 (25.7-32.2) pg MCHC 31.8 L (32.3-36.5) g/dL RDW 13.3 (11.6-14.4) % Plt Count 202 (163-337) x10^3/uL MPV 9.7 (9.4-12.4) fL Sodium 137 (135-145) mmol/L Potassium 4.9 (3.5-5.1) mmol/L Chloride 100 (98-107) mmol/L Carbon Dioxide 30 (22-30) mmol/L Anion Gap 11.7 (5-15) MEQ/L BUN 20 (9-20) mg/dL Creatinine 1.08 (0.66-1.25) mg/dL Estimated GFR 71.6 ML/MIN Glucose 90 (74-106) mg/dL POC Glucometer 106 (74 to 106) mg/dL Calcium 9.2 (8.4-10.2) mg/dL Total Bilirubin 0.50 (0.2-1.3) mg/dL AST 30 (17-59) U/L ALT 18 (0-50) U/L Alkaline Phosphatase 49 (38-126) U/L Serum Total Protein 7.3 (6.3-8.2) g/dL Albumin 4.8 (3.5-5.0) g/dL 01/22/25 01/23/25 01/23/25 Range/Units 21:18 04:21 04:21 WBC 4.8 (4.23-9.07) x10^3/uL RBC 3.42 L (4.63-6.08) x10^6/uL Hgb 10.4 L (13.7-17.5) g/dL Hct 32.8 L (40.1-51.0) % MCV 95.9 H (79.0-92.2) fL MCH 30.4 (25.7-32.2) pg MCHC 31.7 L (32.3-36.5) g/dL RDW 13.5 (11.6-14.4) % Plt Count 164 (163-337) x10^3/uL MPV 10.0 (9.4-12.4) fL Sodium 138 (135-145) mmol/L Potassium 3.9 D (3.5-5.1) mmol/L Chloride 103 (98-107) mmol/L Carbon Dioxide 30 (22-30) mmol/L Anion Gap 8.4 (5-15) MEQ/L BUN 21 H (9-20) mg/dL Creatinine 0.88 (0.66-1.25) mg/dL Estimated GFR 89.7 ML/MIN Glucose 57 L (74-106) mg/dL POC Glucometer 156 H (74 to 106) mg/dL Calcium 8.5 (8.4-10.2) mg/dL Total Bilirubin 0.20 (0.2-1.3) mg/dL AST 24 (17-59) U/L ALT 14 (0-50) U/L Alkaline Phosphatase 40 (38-126) U/L Serum Total Protein 5.8 L (6.3-8.2) g/dL Albumin 3.7 (3.5-5.0) g/dL 01/23/25 Range/Units 07:15 WBC (4.23-9.07) x10^3/uL RBC (4.63-6.08) x10^6/uL Hgb (13.7-17.5) g/dL Hct (40.1-51.0) % MCV (79.0-92.2) fL MCH (25.7-32.2) pg MCHC (32.3-36.5) g/dL RDW (11.6-14.4) % Plt Count (163-337) x10^3/uL MPV (9.4-12.4) fL Sodium (135-145) mmol/L Potassium (3.5-5.1) mmol/L Chloride (98-107) mmol/L Carbon Dioxide (22-30) mmol/L Anion Gap (5-15) MEQ/L BUN (9-20) mg/dL Creatinine (0.66-1.25) mg/dL Estimated GFR ML/MIN Glucose (74-106) mg/dL POC Glucometer 88 (74 to 106) mg/dL Calcium (8.4-10.2) mg/dL Total Bilirubin (0.2-1.3) mg/dL AST (17-59) U/L ALT (0-50) U/L Alkaline Phosphatase (38-126) U/L Serum Total Protein (6.3-8.2) g/dL Albumin (3.5-5.0) g/dL Accuchecks Date 01/23/25 Date 01/22/25 Time 07:20 Assessment/Plan (1) Toe infection Current Visit: No Status: Chronic Assessment & Plan: OM was resolved at previous incounter however concern with dehisence with positive probe to bone at level of 1st metatarsal head concerning for recurrence. plan to address today intraoperatively Code(s): L08.9 - LOCAL INFECTION OF THE SKIN AND SUBCUTANEOUS TISSUE, UNSP (2) Vascular calcification Current Visit: No Status: Acute Assessment & Plan: Noninvasive arterial studies recommended to better assess wound healing potential. Code(s): I99.8 - OTHER DISORDER OF CIRCULATORY SYSTEM (3) Cellulitis of right leg Current Visit: No Status: Acute Assessment & Plan: IV vancomycin for now. Will follow surgical cultures to better target associated infection. Code(s): L03.115 - CELLULITIS OF RIGHT LOWER LIMB (4) Osteomyelitis of right foot Current Visit: No Status: Chronic Assessment & Plan: r/o intraoperatively today Code(s): M86.9 - OSTEOMYELITIS, UNSPECIFIED (5) Edema of right lower extremity Current Visit: No Status: Acute Assessment & Plan: unna boot with mild compression therapy applied at this time Code(s): R60.0 - LOCALIZED EDEMA (6) Diabetes mellitus with insulin therapy Current Visit: No Status: Chronic Code(s): E11.9 - TYPE 2 DIABETES MELLITUS WITHOUT COMPLICATIONS; Z79.4 - MCC (CURRENT) USE OF INSULIN (7) Obesity Current Visit: No Status: Chronic Code(s): E66.9 - OBESITY, UNSPECIFIED (8) Abscess of skin of right ankle Current Visit: Yes Status: Acute Assessment & Plan: in office simple I&D preformed expressing 5-7cc of purulent drainage. Plan for intraoperative intervention/ consent to read: " incision and drainage of right leg abscess to level of muscle, partial 1st ray excision, abductor hallucis muscle flap and possible delayed primary closure of surgical wound dehiscence, multiple wound debridement, possible split thickness skin graft" NPO at midnight (0000) 01/23 Continue IV vancomycin Will follow intraoperative cultures PICC line placement Non weight bearing to the right LE postoperatively Pain control norco 5/325 for mild pain. DVT prophylaxis as indicated. Possible discharge planning. Patient adamantly against return to rehab facility. can drive at this time and can possibly transport for outpatient IV ABX. Code(s): L02.415 - CUTANEOUS ABSCESS OF RIGHT LOWER LIMB (9) Cellulitis Current Visit: Yes Status: Acute Code(s): L03.90 - CELLULITIS, UNSPECIFIED
[2025-01-23] MEDS ORDERED: GlucaGen 1 MG IM PRN (07:30)
[2025-01-23] MEDS ORDERED: D50W 50 ml Abboject IV PRN (07:30)
[2025-01-23] MEDS ORDERED: Glutose 15 GM/30 ml ORAL GEL PO PRN (07:30)
[2025-01-23] MEDS: Dextrose 5%-Lr IV Solution 1000 ML 1,000 ML IV SCH (07:39)
[2025-01-23] MEDS: TYLENOL EXTRA STRENGTH 500 MG PO PRN (07:57)
[2025-01-23] MEDS ORDERED: VITAMIN E 400 UNIT PO SCH (10:00)
[2025-01-23] MEDS ORDERED: LASIX 20 MG PO SCH (10:00)
[2025-01-23] MEDS ORDERED: EPLERENONE 25 MG PO SCH (10:00)
[2025-01-23] MEDS ORDERED: NON-FORMULARY ITEM (Famotidine [Pepcid] 40 MG Tablet) PO SCH ×2 (10:00)
[2025-01-23] MEDS ORDERED: CHOLECALCIFEROL 2000 UNIT PO SCH (10:00)
[2025-01-23] MEDS: Novolin 70/30 SQ SCH ×3 (10:00→17:16)
[2025-01-23] MEDS ORDERED: DELTASONE 10 MG PO SCH (10:00)
--- NOTE | 2025-01-23 10:15 | PCM.NOTE ---
Date and Time: 01/23/25 1009 Subjective Assessment: 01/22/25 is a 74-year-old male with a past medical history of hypertension, hyperlipidemia, asthma, obesity, coronary artery disease, type II diabetes mellitus, and pacemaker/defibrillator placement. He was a direct admission by podiatry (Dr. Quiñones) for evaluation and management of a right ankle wound and abscess that was drained earlier today, associated with surrounding cellulitis. The patient also has a right great toe infection with a recent history of osteomyelitis. He was previously hospitalized from 12/17 to 12/21 and subsequently transferred to a rehabilitation facility for continued IV antibiotic therapy for right great toe osteomyelitis. Wound cultures from his prior admission were positive for Serratia marcescens and Enterobacter species, for which he was discharged on IV Invanz. Will continue IV Invanz and the addition of vancomycin. The patient will remain NPO after midnight in preparation for incision and drainage (I&D) scheduled for the morning. 01/23/25 Patient is resting comfortably in bed today and is awaiting incision and drainage (I&D) of the foot with podiatry in the operating room. Per podiatry, a skin graft may be required depending on intraoperative findings. Morning glucose was 57 mg/dL; therefore, LR with D5 was initiated. The patient remains NPO in preparation for the procedure. Vancomycin is being continued for management of the wound and possible osteomyelitis. A foot X-ray will be obtained today for further evaluation. Blood cultures 2 are pending. Invanz was discontinued, as the patient reports having completed this antibiotic regimen as an outpatient. Laboratory results are overall unremarkable, with a normal white blood cell count. The patient denies any new complaints or concerns at this time. - Review of Systems Constitutional: No Fever, No Chills Eyes: No Symptoms Ears, Nose, & Throat: No Symptoms Respiratory: No Cough, No Short Of Breath Cardiac: No Chest Pain, No Edema, No Syncope Abdominal/Gastrointestinal: No Abdominal Pain, No Nausea, No Vomiting, No Diarrhea Genitourinary Symptoms: No Dysuria Musculoskeletal: No Back Pain, No Neck Pain Skin: Skin Lesions (LLE wrapped), No Rash Neurological: No Dizziness, No Focal Weakness, No Sensory Changes Psychological: No Symptoms Endocrine: No Symptoms Hematologic/Lymphatic: No Symptoms Immunological/Allergic: No Symptoms Objective Exam General Appearance: no apparent distress, alert, obese Neurologic Exam: alert, oriented x 3, cooperative, normal mood/affect, nml cerebellar function, sensation nml, No motor deficits Skin Exam: normal color, warm, dry, other (LLE wrapped) Eye Exam: PERRL, EOMI, eyes nml inspection Ears, Nose, Throat Exam: normal ENT inspection, pharynx normal, moist mucous membranes Neck Exam: normal inspection, non-tender, supple, full range of motion Respiratory Exam: normal breath sounds, lungs clear, No respiratory distress Cardiovascular Exam: regular rate/rhythm, normal heart sounds Gastrointestinal/Abdomen Exam: soft, No tenderness, No mass Extremity Exam: normal inspection, normal range of motion Back Exam: normal inspection, normal range of motion, No CVA tenderness, No vertebral tenderness Male Genitalia Exam: deferred Rectal Exam: deferred Objective Data Vital Signs: Vital Signs - 24 hr Temp Pulse Resp BP BP Pulse Ox 01/23/25 07:03 97.2 F 82 18 142/65 98 01/23/25 04:00 97.1 F 80 21 149/67 97 01/23/25 00:00 97.3 F 82 24 133/64 143/65 93 L 01/22/25 19:57 97.3 F 82 24 143/65 93 L 01/22/25 15:41 97.7 F 73 22 133/64 133/64 97 01/22/25 14:55 97.7 F 73 22 133/64 97 01/22/25 14:48 97.7 F 73 22 133/64 97 Pain Assessment - Last Documented Pain Intensity 0 Pain Scale Used 0-10 Pain Scale Intake and Output: Intake & Output 01/20/25 01/21/25 01/22/25 01/23/25 11:59 11:59 11:59 11:59 Intake Total 1040 Balance 1040 Weight 103.1 kg Lab Results: Lab Results-Last 24 Hours 01/22/25 01/22/25 01/22/25 Range/Units 15:15 15:15 16:22 WBC 6.1 (4.23-9.07) x10^3/uL RBC 4.14 L (4.63-6.08) x10^6/uL Hgb 12.7 L (13.7-17.5) g/dL Hct 39.9 L (40.1-51.0) % MCV 96.4 H (79.0-92.2) fL MCH 30.7 (25.7-32.2) pg MCHC 31.8 L (32.3-36.5) g/dL RDW 13.3 (11.6-14.4) % Plt Count 202 (163-337) x10^3/uL MPV 9.7 (9.4-12.4) fL Sodium 137 (135-145) mmol/L Potassium 4.9 (3.5-5.1) mmol/L Chloride 100 (98-107) mmol/L Carbon Dioxide 30 (22-30) mmol/L Anion Gap 11.7 (5-15) MEQ/L BUN 20 (9-20) mg/dL Creatinine 1.08 (0.66-1.25) mg/dL Estimated GFR 71.6 ML/MIN Glucose 90 (74-106) mg/dL POC Glucometer 106 (74 to 106) mg/dL Calcium 9.2 (8.4-10.2) mg/dL Total Bilirubin 0.50 (0.2-1.3) mg/dL AST 30 (17-59) U/L ALT 18 (0-50) U/L Alkaline Phosphatase 49 (38-126) U/L Serum Total Protein 7.3 (6.3-8.2) g/dL Albumin 4.8 (3.5-5.0) g/dL 01/22/25 01/23/25 01/23/25 Range/Units 21:18 04:21 04:21 WBC 4.8 (4.23-9.07) x10^3/uL RBC 3.42 L (4.63-6.08) x10^6/uL Hgb 10.4 L (13.7-17.5) g/dL Hct 32.8 L (40.1-51.0) % MCV 95.9 H (79.0-92.2) fL MCH 30.4 (25.7-32.2) pg MCHC 31.7 L (32.3-36.5) g/dL RDW 13.5 (11.6-14.4) % Plt Count 164 (163-337) x10^3/uL MPV 10.0 (9.4-12.4) fL Sodium 138 (135-145) mmol/L Potassium 3.9 D (3.5-5.1) mmol/L Chloride 103 (98-107) mmol/L Carbon Dioxide 30 (22-30) mmol/L Anion Gap 8.4 (5-15) MEQ/L BUN 21 H (9-20) mg/dL Creatinine 0.88 (0.66-1.25) mg/dL Estimated GFR 89.7 ML/MIN Glucose 57 L (74-106) mg/dL POC Glucometer 156 H (74 to 106) mg/dL Calcium 8.5 (8.4-10.2) mg/dL Total Bilirubin 0.20 (0.2-1.3) mg/dL AST 24 (17-59) U/L ALT 14 (0-50) U/L Alkaline Phosphatase 40 (38-126) U/L Serum Total Protein 5.8 L (6.3-8.2) g/dL Albumin 3.7 (3.5-5.0) g/dL 01/23/25 01/23/25 Range/Units 07:15 08:16 WBC (4.23-9.07) x10^3/uL RBC (4.63-6.08) x10^6/uL Hgb (13.7-17.5) g/dL Hct (40.1-51.0) % MCV (79.0-92.2) fL MCH (25.7-32.2) pg MCHC (32.3-36.5) g/dL RDW (11.6-14.4) % Plt Count (163-337) x10^3/uL MPV (9.4-12.4) fL Sodium (135-145) mmol/L Potassium (3.5-5.1) mmol/L Chloride (98-107) mmol/L Carbon Dioxide (22-30) mmol/L Anion Gap (5-15) MEQ/L BUN (9-20) mg/dL Creatinine (0.66-1.25) mg/dL Estimated GFR ML/MIN Glucose (74-106) mg/dL POC Glucometer 88 101 (74 to 106) mg/dL Calcium (8.4-10.2) mg/dL Total Bilirubin (0.2-1.3) mg/dL AST (17-59) U/L ALT (0-50) U/L Alkaline Phosphatase (38-126) U/L Serum Total Protein (6.3-8.2) g/dL Albumin (3.5-5.0) g/dL Medications: Medications Generic Name Dose Route Start Last Admin Trade Name Jettq PRN Reason Stop Dose Admin Acetaminophen 500 mg 01/22/25 15:58 01/23/25 07:57 Acetaminophen 500 Mg Tablet PO 02/21/25 15:57 500 mg Q6HPRN PRN Administration PAIN Hydrocodone Bitart/Acetaminophen 1 tablet 01/22/25 16:52 Hydrocodone/Acetamin 10-325 Mg Tablet PO 01/27/25 16:59 BID PRN PRN PAIN Amlodipine Besylate 5 mg 01/23/25 10:00 Amlodipine Besylate 5 Mg Tablet PO 02/22/25 09:59 [facility] 25 mg 01/22/25 22:00 01/22/25 21:27 Carvedilol 12.5 Mg Tablet PO 02/21/25 21:59 25 mg BID DL Administration Cholecalciferol 2,000 unit 01/23/25 10:00 Cholecalciferol (Vitamin D3) 1000 Unit Tablet PO 02/22/25 09:59 DAILY DL Device 1 01/24/25 09:00 Therapuetic Drug Level Monitor Each IJ 01/24/25 09:01 1XONLY ONE Dextrose 25 ml 01/23/25 07:30 Dextrose 50%-Water 50 Ml Abboject IV 02/22/25 07:29 PRN PRN HYPOGLYCEMIA Famotidine 40 mg 01/23/25 10:00 Famotidine 20 Mg Tablet PO 02/22/25 09:59 DAILY DL Finasteride 5 mg 01/23/25 10:00 Finasteride 5 Mg Tablet PO 02/22/25 09:59 DAILY DL Folic Acid 1 mg 01/23/25 10:00 Folic Acid 1 Mg Tablet PO 02/22/25 09:59 DAILY DL Furosemide 40 mg 01/23/25 10:00 Furosemide 40 Mg Tablet PO 02/22/25 09:59 DAILY DL Gabapentin 300 mg 01/22/25 22:00 01/22/25 21:26 Gabapentin 300 Mg Capsule PO 02/21/25 21:59 300 mg BID DL Administration Glucagon 1 mg 01/23/25 07:30 Glucagon 1 Mg/Vial Vial IM 02/22/25 07:29 PRN PRN HYPOGLYCEMIA Glucose 15 gm 01/23/25 07:30 Dextrose 15 Gm Oral Gel 15 Gm/30 Ml Ml PO 02/22/25 07:29 PRN PRN HYPOGLYCEMIA Vancomycin HCl 1.25 gm in 250 mls @ 166.667 mls/hr 01/23/25 10:00 Vancomycin 1.25 Gm/250 Ml Bag IV 01/26/25 09:59 Q12HT DL Dextrose/Lactated Ringer's 1,000 mls @ 75 mls/hr 01/23/25 08:00 01/23/25 07:39 Dextrose 5%-Lr Iv Solution 1000 Ml IV 02/22/25 07:59 75 mls/hr .[id number] DL Administration Insulin Human Isoph/Insulin Regular 40 unit 01/23/25 07:30 01/23/25 10:00 Insulin Nph/Reg 70/30 SQ 02/22/25 07:29 Not Given 0730 DL Insulin Human Isoph/Insulin Regular 30 unit 01/23/25 11:30 Insulin Nph/Reg 70/30 SQ 02/22/25 11:29 1130 DL Insulin Human Isoph/Insulin Regular 10 unit 01/23/25 16:30 Insulin Nph/Reg 70/30 SQ 02/22/25 16:29 1630 DL Insulin Human Lispro 0 unit 01/22/25 15:45 Insulin Lispro 1 Unit SQ 02/21/25 15:44 UD PRN HYPERGLYCEMIA Magnesium Oxide 400 mg 01/22/25 22:00 01/22/25 21:27 Magnesium Oxide 400 Mg Tablet PO 02/21/25 21:59 400 mg BID DL Administration Miscellaneous Information 1 each 01/22/25 17:45 Medication Intervention 1 Each Each 02/21/25 17:44 .RN TO CHECK DL Miscellaneous Information 1 each 01/22/25 17:45 Medication Intervention 1 Each Each 02/21/25 17:44 .RN TO CHECK DL Miscellaneous Information 1 each 01/22/25 17:45 Medication Intervention 1 Each Each 02/21/25 17:44 .RN TO CHECK DL Miscellaneous Information 1 each 01/22/25 17:45 Medication Intervention 1 Each Each 02/21/25 17:44 .RN TO CHECK DL Multivitamins Therapeutic 1 tab 01/22/25 22:00 01/22/25 21:26 Multivitamins,Therapeutic 1 Tab Tab PO 02/21/25 21:59 1 tab HS DL Administration Pantoprazole Sodium 20 mg 01/23/25 10:00 Pantoprazole 20 Mg Tab PO 02/22/25 09:59 DAILY DL Prednisone 5 mg 01/23/25 10:00 Prednisone 5 Mg Tablet PO 02/22/25 09:59 DAILY DL Tamsulosin HCl 0.4 mg 01/22/25 22:00 01/22/25 21:26 Tamsulosin Hcl 0.4 Mg Cap PO 02/21/25 21:59 0.4 mg HS DL Administration Vitamin E 400 units 01/23/25 10:00 Vitamin E 400 Units 400 Units Capsule PO 02/22/25 09:59 DAILY DL Zolpidem Tartrate 10 mg 01/22/25 22:00 01/22/25 21:26 Zolpidem Tartrate 10 Mg Tablet PO 02/21/25 21:59 10 mg HS DL Administration Discontinued Medications Generic Name Dose Route Start Last Admin Trade Name Freq PRN Reason Stop Dose Admin Acetaminophen 650 mg 01/22/25 15:15 01/22/25 23:08 Acetaminophen 325 Mg Tablet PO 02/21/25 15:14 650 mg Q6H PRN PRN Administration PAIN, FEVER, HEADACHE Hydrocodone Bitart/Acetaminophen tablet 01/22/25 15:58 Hydrocodone/Acetamin 10-325 Mg Tablet PO 01/27/25 15:57 Q4H PRN PAIN Vancomycin HCl 1.5 gm in 300 mls @ 200 mls/hr 01/22/25 17:00 01/22/25 17:06 Vancomycin 1.5 Gram/300 Ml Bag IV 01/22/25 18:29 200 mls/hr ONCE ONE Administration Non-Formulary Medication 1 each 01/22/25 15:41 Pharmacy Dose Request: Vancomycin 1 Each IV 01/22/25 15:42 STAT STA Non-Formulary Medication 1 g 01/22/25 16:00 Ertapenem Sodium [Invanz ] IV 02/21/25 15:59 Q24H DL Non-Formulary Medication 40 mg 01/23/25 10:00 Famotidine [Pepcid] PO 02/22/25 09:59 DAILY [facility] Multi-Disciplinary Progress Notes: Multi-Disciplinary Progress Notes 01/23/25 07:17 Pharmacy Note by Tex Noel Pharmacokinetic dosing service Date: 01/23/2025 Time: 714 Objective: Patient: ASH JOHNSON Floor: 104 Age: 74 yo Serum creatinine: 0.88 mg/dL Height: 71 Inches Weight (kg): 103 Diagnosis: OSTEOMYELITIS Relevant medical/social history: 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 Drug selected: Vancomycin Loading dose (mg): 1500 MG Vd (liters): 82.4 (factor used: 0.8 L/kg) Denys (hr-1): 0.068 Half life (hrs): 10.19 Recommended dose: 1250 mg Interval: 12 hrs Infusion time (hrs): 1.5 Predicted peak (mcg/mL): 25.9 Predicted trough (mcg/mL): 12.68 Total body weight is being used for vancomycin dosing. Renal function is stable [XXX ] /unstable [ ] Recommendations: Give Vancomycin 1250 mg q 12 hrs with an expected Cpeak of 25.9 mcg/ml and an expected Ctrough of 12.68 mcg/ml Renal dosing of other antibiotics (review renal dosing of other medications and list guidelines here): Thank you for the consult, will continue to follow. Signature: TEX NOEL Initialized on 01/23/25 07:17 - END OF NOTE Assessment/Plan (1) Toe infection Current Visit: No Status: Chronic Code(s): L08.9 - LOCAL INFECTION OF THE SKIN AND SUBCUTANEOUS TISSUE, UNSP (2) Abscess of skin of right ankle Current Visit: Yes Status: Acute Code(s): L02.415 - CUTANEOUS ABSCESS OF RIGHT LOWER LIMB (3) Osteomyelitis of right foot Current Visit: No Status: Chronic Code(s): M86.9 - OSTEOMYELITIS, UNSPECIFIED (4) Cellulitis Current Visit: Yes Status: Acute Code(s): L03.90 - CELLULITIS, UNSPECIFIED (5) CAD (coronary artery disease) Current Visit: No Status: Chronic Code(s): I25.10 - ATHSCL HEART DISEASE OF [place] CORONARY ARTERY W/O ANG PCTRS (6) Diabetes mellitus with insulin therapy Current Visit: No Status: Chronic Code(s): E11.9 - TYPE 2 DIABETES MELLITUS WITHOUT COMPLICATIONS; Z79.4 - RELIGION DEPARTMENT CHAIR (CURRENT) USE OF INSULIN (7) HTN (hypertension) Current Visit: No Status: Chronic Code(s): I10 - ESSENTIAL (PRIMARY) HYPERTENSION (8) Obesity Current Visit: No Status: Chronic Assessment & Plan: (1) Toe infection Current Visit: No Status: Chronic Assessment & Plan: - Pt recently admitted for this and d/c'd to rehab for IV Invanz OP - Ongoing with recent amputation 2 weeks ago. - CBC, CMP pending - BC x2 - Prostat 64 - WBC normal 01/23 - XR RLE today to eval for osteomyelitis - CBC, MCP reviewed - Vanomycin IV - Per podiatry: dehiscence at the right great toe amputation site- seen on 01/22 Code(s): L08.9 - LOCAL INFECTION OF THE SKIN AND SUBCUTANEOUS TISSUE, UNSP (2) Abscess of skin of right ankle Current Visit: Yes Status: Acute Assessment & Plan: - Drained in office by podiatry today (01/22) with cultures pending - Pt to have I&D in [place] tomorrow with Dr. Quiñones- NPO after midnight - Vancomycin IV - Podiatry consult IP 01/23 - I&D today - Podiatry consult - Reviewed note and agree with plan of care. - Per podiatry - noted drainage of approximately 57 cc of purulent material from a right leg abscess on 01/22 Code(s): L02.415 - CUTANEOUS ABSCESS OF RIGHT LOWER LIMB (3) Osteomyelitis of right foot Current Visit: No Status: Chronic Assessment & Plan: - Chronic - podiatry consult Code(s): M86.9 - OSTEOMYELITIS, UNSPECIFIED (4) Cellulitis Current Visit: Yes Status: Acute Assessment & Plan: - RLE - IV antibiotic Code(s): L03.90 - CELLULITIS, UNSPECIFIED (5) CAD (coronary artery disease) Current Visit: No Status: Chronic Assessment & Plan: - Chronic - No acute concern - Continue home meds Code(s): I25.10 - ATHSCL HEART DISEASE OF [place] CORONARY ARTERY W/O ANG PCTRS (6) Diabetes mellitus with insulin therapy Current Visit: No Status: Chronic Assessment & Plan: - Accuchecks AC/HS - Continue home dose of insulin - S/S started - A1C 6.31- Controlled Code(s): E11.9 - TYPE 2 DIABETES MELLITUS WITHOUT COMPLICATIONS; Z79.4 - RETIREMENT (CURRENT) USE OF INSULIN (7) HTN (hypertension) Current Visit: No Status: Chronic Assessment & Plan: - BP stable - Continue home meds Code(s): I10 - ESSENTIAL (PRIMARY) HYPERTENSION (8) Obesity Current Visit: No Status: Chronic Assessment & Plan: - Advised ADA diet and exercise control VTE: SCD's- hold blood thinners for procedure tomorrow PPI: Protonix Next of KIN: D/C plan: Per podiatry recs Code status: Full Plan of care time > 38 minutes Code(s): E66.9 - OBESITY, UNSPECIFIED Code(s): E66.9 - OBESITY, UNSPECIFIED
[2025-01-23] MEDS: VANCOMYCIN 1.25 GM/250 ML BAG 1.25 GM/250 ML PIGGYBACK IV SCH (11:08)
[2025-01-23] MEDS: Pepcid 20 MG PO SCH (11:08)
[2025-01-23] MEDS: VITAMIN D PO SCH (11:08)
[2025-01-23] MEDS: FOLATE 1 MG PO SCH (11:08)
[2025-01-23] MEDS: DELTASONE 5 MG PO SCH (11:09)
[2025-01-23] MEDS: Lasix 40 MG PO SCH (11:09)
[2025-01-23] MEDS: NORVASC 5 MG PO SCH (11:09)
[2025-01-23] MEDS: Protonix 20MG Tablet PO SCH (11:09)
[2025-01-23] MEDS: Proscar 5 MG PO SCH (11:10)
[2025-01-23] MEDS: Vitamin E 400 UNIT SOFTGEL PO SCH (11:10)
--- NOTE | 2025-01-23 11:40 | XRAY ---
Indication: Infection. Comparison: None 2 view right lower leg demonstrates overlying bandaging material limiting exam. Otherwise osteopenia, intact total knee arthroplasty, old medial malleolus fracture with intact orthopedic screws, tiny plantar heel spur, and extensive vascular calcifications. No other bony, articular, or soft tissue abnormalities.
[2025-01-23] MEDS ORDERED: MINERAL OIL LIGHT 10 ML FOR SURGERY ONE (12:19)
[2025-01-23] MEDS ORDERED: Thrombin-JMI 5000 UNITS TP ONE (12:19)
[2025-01-23] MEDS ORDERED: XYLOCAINE 1%/Epi 1:100000 MDV 20 ML ONE (12:19)
[2025-01-23] MEDS ORDERED: PHENYLEPHRINE HCL ONE (13:24)
[2025-01-23] MEDS ORDERED: propofoL IV ONE ×4 (13:24→14:29)
[2025-01-23] MEDS ORDERED: SUBLIMAZE 100 MCG/2 ML ONE (13:25)
[2025-01-23] MEDS ORDERED: Versed 2 MG/2 ML Injection ONE (13:25)
[2025-01-23] MEDS ORDERED: Ketamine HCl 50 MG/ML ONE (14:04)
[2025-01-23] MEDS ORDERED: DUONEB 0.5-3 MG/3 ml Neb IH PRN (15:46)
[2025-01-23] MEDS: NORCO 10-325 MG PO PRN ×2 (17:06→23:42)
[2025-01-23 18:34] LABS: Glucose, Urine >=1000 mg/dL (Negative); Protein,Urine Dip Negative (Negative); RBC 0-2 /HPF (0-5); WBC 0-2 /HPF (0-5)
[2025-01-23] MEDS: ELIQUIS 2.5 MG TABLET PO SCH (21:50)
[2025-01-23] MEDS: HUMALOG SQ PRN (21:51)
[2025-01-23] MEDS: NON-FORMULARY ITEM (Ertapenem Sodium *** [Invanz ***] 1 G/VIAL Vial) IV SCH (22:46)
[2025-01-23] MEDS: PHARMACY DOSING REQUIRED: VANCOMYCIN IV STA (23:19)
[2025-01-24 04:32] LABS: Hematocrit 33.0 % (40.1-51.0); Hemoglobin 10.5 g/dL (13.7-17.5); Mean Corpuscular Hemoglobin 30.6 pg (25.7-32.2); Mean Corpuscular Hgb Concent. 31.8 g/dL (32.3-36.5); Platelet Count 148 x10^3/uL (163-337); Red Blood Count 3.43 x10^6/uL (4.63-6.08); White Blood Count 4.4 x10^3/uL (4.23-9.07)
[2025-01-24 05:08] LABS: Calcium 8.4 mg/dL (8.4-10.2); Carbon Dioxide 31.0 mmol/L (22-30); Creatinine 1 0.93 mg/dL (0.66-1.25); EST GLOMERULAR FILTRATION RATE 85.6 ML/MIN; Glucose 122.0 mg/dL (74-106); Potassium 4.0 mmol/L (3.5-5.1); SGOT/AST 25.0 U/L (17-59); SGPT/ALT 15.0 U/L (0-50); Total Protein 5.8 g/dL (6.3-8.2)
--- NOTE | 2025-01-24 07:55 | PCM.NOTE ---
Date and Time: 01/24/25 0749 Subjective Assessment: doing well. patient indicates feeling great with a good nights rest. only experienced minimal pain however believes he is getting good relief with Tylenol Physical Exam - Narrative Narrative Physical Exam: wound to ankle inspected left open with packing no continued purulent drainage with no malodor. relatively clean wound to level of muscle. viable skin margins noted. Objective Data Vital Signs: Vital Signs - 24 hr Temp Pulse Resp BP BP Pulse Ox 01/24/25 04:00 97.3 F 70 18 115/57 95 01/23/25 23:26 97.8 F 83 20 129/68 95 01/23/25 20:00 97.7 F 72 20 132/62 94 L 01/23/25 15:32 98 F 95 H 18 131/76 98 01/23/25 11:47 79 16 94 L 01/23/25 11:45 98 F 78 18 133/64 137/64 95 01/23/25 11:44 98 F 78 18 137/64 95 Pain Assessment - Last Documented Pain Intensity 6 Pain Scale Used 0-10 Pain Scale Intake and Output: Intake & Output 01/21/25 01/22/25 01/23/25 01/24/25 11:59 11:59 11:59 11:59 Intake Total 1040 2074 Output Total 650 Balance 1040 1424 Weight 103.1 kg 103.1 kg Lab Results: Lab Results-Last 24 Hours 01/23/25 01/23/25 01/23/25 Range/Units 08:16 11:29 15:00 WBC (4.23-9.07) x10^3/uL RBC (4.63-6.08) x10^6/uL Hgb (13.7-17.5) g/dL Hct (40.1-51.0) % MCV (79.0-92.2) fL MCH (25.7-32.2) pg MCHC (32.3-36.5) g/dL RDW (11.6-14.4) % Plt Count (163-337) x10^3/uL MPV (9.4-12.4) fL Sodium (135-145) mmol/L Potassium (3.5-5.1) mmol/L Chloride (98-107) mmol/L Carbon Dioxide (22-30) mmol/L Anion Gap (5-15) MEQ/L BUN (9-20) mg/dL Creatinine (0.66-1.25) mg/dL Estimated GFR ML/MIN Glucose (74-106) mg/dL POC Glucometer 101 157 H 223 H (74 to 106) mg/dL Calcium (8.4-10.2) mg/dL Total Bilirubin (0.2-1.3) mg/dL AST (17-59) U/L ALT (0-50) U/L Alkaline Phosphatase (38-126) U/L Serum Total Protein (6.3-8.2) g/dL Albumin (3.5-5.0) g/dL Urine Color (Yellow) Urine Appearance (Clear) Urine pH (4.6-8.0) Ur Specific Lilly (1.005-1.030) Urine Protein (Negative) Urine Glucose (UA) (Negative) mg/dL Urine Ketones (Negative) Urine Blood (Negative) Urine Nitrite (Negative) Urine Bilirubin (Negative) Urine Urobilinogen (0.2) mg/dL Ur Leukocyte Esterase (Negative) U Hyaline Cast (Auto) (0-2) /LPF Urine Microscopic RBC (0-5) /HPF Urine Microscopic WBC (0-5) /HPF Ur Epithelial Cells (None Seen) /HPF Urine Bacteria (None Seen) /HPF Urine Culture Reflexed (NO) 01/23/25 01/23/25 01/23/25 Range/Units 16:36 18:20 21:15 WBC (4.23-9.07) x10^3/uL RBC (4.63-6.08) x10^6/uL Hgb (13.7-17.5) g/dL Hct (40.1-51.0) % MCV (79.0-92.2) fL MCH (25.7-32.2) pg MCHC (32.3-36.5) g/dL RDW (11.6-14.4) % Plt Count (163-337) x10^3/uL MPV (9.4-12.4) fL Sodium (135-145) mmol/L Potassium (3.5-5.1) mmol/L Chloride (98-107) mmol/L Carbon Dioxide (22-30) mmol/L Anion Gap (5-15) MEQ/L BUN (9-20) mg/dL Creatinine (0.66-1.25) mg/dL Estimated GFR ML/MIN Glucose (74-106) mg/dL POC Glucometer 235 H 331 H (74 to 106) mg/dL Calcium (8.4-10.2) mg/dL Total Bilirubin (0.2-1.3) mg/dL AST (17-59) U/L ALT (0-50) U/L Alkaline Phosphatase (38-126) U/L Serum Total Protein (6.3-8.2) g/dL Albumin (3.5-5.0) g/dL Urine Color Yellow (Yellow) Urine Appearance Clear (Clear) Urine pH 5.0 (4.6-8.0) Ur Specific Lilly 1.010 (1.005-1.030) Urine Protein Negative (Negative) Urine Glucose (UA) >=1000 A (Negative) mg/dL Urine Ketones Trace A (Negative) Urine Blood Negative (Negative) Urine Nitrite Negative (Negative) Urine Bilirubin Negative (Negative) Urine Urobilinogen 0.2 (0.2) mg/dL Ur Leukocyte Esterase Negative (Negative) U Hyaline Cast (Auto) NONE SEEN (0-2) /LPF Urine Microscopic RBC 0-2 (0-5) /HPF Urine Microscopic WBC 0-2 (0-5) /HPF Ur Epithelial Cells None Seen (None Seen) /HPF Urine Bacteria None Seen (None Seen) /HPF Urine Culture Reflexed NO (NO) 01/24/25 01/24/25 01/24/25 Range/Units 04:20 04:20 07:21 WBC 4.4 (4.23-9.07) x10^3/uL RBC 3.43 L (4.63-6.08) x10^6/uL Hgb 10.5 L (13.7-17.5) g/dL Hct 33.0 L (40.1-51.0) % MCV 96.2 H (79.0-92.2) fL MCH 30.6 (25.7-32.2) pg MCHC 31.8 L (32.3-36.5) g/dL RDW 13.5 (11.6-14.4) % Plt Count 148 L (163-337) x10^3/uL MPV 9.3 L (9.4-12.4) fL Sodium 135 (135-145) mmol/L Potassium 4.0 (3.5-5.1) mmol/L Chloride 102 (98-107) mmol/L Carbon Dioxide 31 H (22-30) mmol/L Anion Gap 7.2 (5-15) MEQ/L BUN 20 (9-20) mg/dL Creatinine 0.93 (0.66-1.25) mg/dL Estimated GFR 85.6 ML/MIN Glucose 122 H (74-106) mg/dL POC Glucometer 143 H (74 to 106) mg/dL Calcium 8.4 (8.4-10.2) mg/dL Total Bilirubin 0.40 (0.2-1.3) mg/dL AST 25 (17-59) U/L ALT 15 (0-50) U/L Alkaline Phosphatase 40 (38-126) U/L Serum Total Protein 5.8 L (6.3-8.2) g/dL Albumin 3.7 (3.5-5.0) g/dL Urine Color (Yellow) Urine Appearance (Clear) Urine pH (4.6-8.0) Ur Specific Lilly (1.005-1.030) Urine Protein (Negative) Urine Glucose (UA) (Negative) mg/dL Urine Ketones (Negative) Urine Blood (Negative) Urine Nitrite (Negative) Urine Bilirubin (Negative) Urine Urobilinogen (0.2) mg/dL Ur Leukocyte Esterase (Negative) U Hyaline Cast (Auto) (0-2) /LPF Urine Microscopic RBC (0-5) /HPF Urine Microscopic WBC (0-5) /HPF Ur Epithelial Cells (None Seen) /HPF Urine Bacteria (None Seen) /HPF Urine Culture Reflexed (NO) Radiology Exams: Radiology Procedures Category Date Time Status LOWER LEG Routine Exams 01/23/25 10:14 Completed PICC LINE PLACEMENT Routine Exams 01/24/25 06:14 Ordered Medications: Medications Generic Name Dose Route Start Last Admin Trade Name Freq PRN Reason Stop Dose Admin Acetaminophen 500 mg 01/22/25 15:58 01/24/25 06:28 Acetaminophen 500 Mg Tablet PO 02/21/25 15:57 500 mg Q6HPRN PRN Administration PAIN Hydrocodone Bitart/Acetaminophen 1 tablet 01/23/25 23:36 01/23/25 23:42 Hydrocodone/Acetamin 10-325 Mg Tablet PO 01/28/25 23:35 1 tablet Q4H PRN PRN Administration PAIN Amlodipine Besylate 5 mg 01/23/25 10:00 01/23/25 11:09 Amlodipine Besylate 5 Mg Tablet PO 02/22/25 09:59 5 mg QAM DL Administration Apixaban 5 mg 01/23/25 22:00 01/23/25 21:50 Apixaban 2.5 Mg Tablet PO 02/22/25 21:59 5 mg BID DL Administration Carvedilol 25 mg 01/22/25 22:00 01/23/25 21:51 Carvedilol 12.5 Mg Tablet PO 02/21/25 21:59 25 mg BID DL Administration Cholecalciferol 2,000 unit 01/23/25 10:00 01/23/25 11:08 Cholecalciferol (Vitamin D3) 1000 Unit Tablet PO 02/22/25 09:59 2,000 unit DAILY DL Administration Device 1 01/24/25 09:00 Therapuetic Drug Level Monitor Each IJ 01/24/25 09:01 1XONLY ONE Dextrose 25 ml 01/23/25 07:30 Dextrose 50%-Water 50 Ml Abboject IV 02/22/25 07:29 PRN PRN HYPOGLYCEMIA Famotidine 40 mg 01/23/25 10:00 01/23/25 11:08 Famotidine 20 Mg Tablet PO 02/22/25 09:59 40 mg DAILY DL Administration Finasteride 5 mg 01/23/25 10:00 01/23/25 11:10 Finasteride 5 Mg Tablet PO 02/22/25 09:59 5 mg DAILY DL Administration Folic Acid 1 mg 01/23/25 10:00 01/23/25 11:08 Folic Acid 1 Mg Tablet PO 02/22/25 09:59 1 mg DAILY DL Administration Furosemide 40 mg 01/23/25 10:00 01/23/25 11:09 Furosemide 40 Mg Tablet PO 02/22/25 09:59 40 mg DAILY DL Administration Gabapentin 300 mg 01/22/25 22:00 01/23/25 21:51 Gabapentin 300 Mg Capsule PO 02/21/25 21:59 300 mg BID DL Administration Glucagon 1 mg 01/23/25 07:30 Glucagon 1 Mg/Vial Vial IM 02/22/25 07:29 PRN PRN HYPOGLYCEMIA Glucose 15 gm 01/23/25 07:30 Dextrose 15 Gm Oral Gel 15 Gm/30 Ml Ml PO 02/22/25 07:29 PRN PRN HYPOGLYCEMIA Vancomycin HCl 1.25 gm in 250 mls @ 166.667 mls/hr 01/23/25 10:00 01/23/25 21:51 Vancomycin 1.25 Gm/250 Ml Bag IV 01/26/25 09:59 166.667 mls/hr Q12HT DL Administration Dextrose/Lactated Ringer's 1,000 mls @ 75 mls/hr 01/23/25 08:00 01/23/25 07:39 Dextrose 5%-Lr Iv Solution 1000 Ml IV 02/22/25 07:59 75 mls/hr .[id number] DL Administration Insulin Human Isoph/Insulin Regular 40 unit 01/23/25 07:30 01/23/25 17:15 Insulin Nph/Reg 70/30 SQ 02/22/25 07:29 10 unit 0730 DL Administration Insulin Human Isoph/Insulin Regular 30 unit 01/23/25 11:30 01/23/25 12:44 Insulin Nph/Reg 70/30 SQ 02/22/25 11:29 Not Given 1130 DL Insulin Human Isoph/Insulin Regular 10 unit 01/23/25 16:30 01/23/25 17:16 Insulin Nph/Reg 70/30 SQ 02/22/25 16:29 10 unit 1630 DL Administration Insulin Human Lispro 0 unit 01/22/25 15:45 01/23/25 21:51 Insulin Lispro 1 Unit SQ 02/21/25 15:44 9 unit UD PRN Administration HYPERGLYCEMIA Magnesium Oxide 400 mg 01/22/25 22:00 01/23/25 21:51 Magnesium Oxide 400 Mg Tablet PO 02/21/25 21:59 400 mg BID DL Administration Miscellaneous Information 1 each 01/22/25 17:45 Medication Intervention 1 Each Each 02/21/25 17:44 .RN TO CHECK DL Miscellaneous Information 1 each 01/22/25 17:45 Medication Intervention 1 Each Each 02/21/25 17:44 .RN TO CHECK DL Miscellaneous Information 1 each 01/22/25 17:45 Medication Intervention 1 Each Each 02/21/25 17:44 .RN TO CHECK DL Miscellaneous Information 1 each 01/22/25 17:45 Medication Intervention 1 Each Each 02/21/25 17:44 .RN TO CHECK DL Multivitamins Therapeutic 1 tab 01/22/25 22:00 01/23/25 21:51 Multivitamins,Therapeutic 1 Tab Tab PO 02/21/25 21:59 1 tab HS DL Administration Pantoprazole Sodium 20 mg 01/23/25 10:00 01/23/25 11:09 Pantoprazole 20 Mg Tab PO 02/22/25 09:59 20 mg DAILY DL Administration Prednisone 5 mg 01/23/25 10:00 01/23/25 11:09 Prednisone 5 Mg Tablet PO 02/22/25 09:59 5 mg DAILY DL Administration Tamsulosin HCl 0.4 mg 01/22/25 22:00 01/23/25 21:51 Tamsulosin Hcl 0.4 Mg Cap PO 02/21/25 21:59 0.4 mg HS DL Administration Vitamin E 400 units 01/23/25 10:00 01/23/25 11:10 Vitamin E 400 Units 400 Units Capsule PO 02/22/25 09:59 400 units DAILY DL Administration Zolpidem Tartrate 10 mg 01/22/25 22:00 01/23/25 21:51 Zolpidem Tartrate 10 Mg Tablet PO 02/21/25 21:59 10 mg HS DL Administration Discontinued Medications Generic Name Dose Route Start Last Admin Trade Name Freq PRN Reason Stop Dose Admin Acetaminophen 650 mg 01/22/25 15:15 01/22/25 23:08 Acetaminophen 325 Mg Tablet PO 02/21/25 15:14 650 mg Q6H PRN PRN Administration PAIN, FEVER, HEADACHE Hydrocodone Bitart/Acetaminophen tablet 01/22/25 15:58 Hydrocodone/Acetamin 10-325 Mg Tablet PO 01/27/25 15:57 Q4H PRN PAIN Hydrocodone Bitart/Acetaminophen 1 tablet 01/22/25 16:52 01/23/25 17:06 Hydrocodone/Acetamin 10-325 Mg Tablet PO 01/27/25 16:59 1 tablet BID PRN PRN Administration PAIN Albuterol/Ipratropium 3 ml 01/23/25 15:46 Ipratropium/Albuterol Sulfate 3 Ml Ampul.Neb IH 02/22/25 15:45 Q4HPRN PRN SHORTNESS OF BREATH/WHEEZING Fentanyl Citrate Confirm 01/23/25 13:25 Fentanyl Citrate 100 Mcg/2 Ml* Vial Administered 01/23/25 13:26 Dose 100 mcg .ROUTE .STK-MED ONE Vancomycin HCl 1.5 gm in 300 mls @ 200 mls/hr 01/22/25 17:00 01/22/25 17:06 Vancomycin 1.5 Gram/300 Ml Bag IV 01/22/25 18:29 200 mls/hr ONCE ONE Administration Sodium Chloride Confirm 01/23/25 13:20 Sodium Chloride 0.9% 1000 Ml Administered 01/23/25 13:21 Dose 1,000 mls @ ud .ROUTE .STK-MED ONE Sodium Chloride Confirm 01/23/25 14:07 Sodium Chloride 0.9% 1000 Ml Administered 01/23/25 14:08 Dose 1,000 mls @ ud .ROUTE .STK-MED ONE Ketamine HCl Confirm 01/23/25 14:04 Ketamine Hcl 50 Mg/Ml Administered 01/23/25 14:05 Dose 50 mg .ROUTE .STK-MED ONE Lidocaine/Epinephrine Confirm 01/23/25 12:19 Lidocaine Hcl/Epinephrine 1% 20 Ml Administered 01/23/25 12:20 Dose 20 ml .ROUTE .STK-MED ONE Midazolam HCl Confirm 01/23/25 13:25 Midazolam Hcl 2 Mg/2 Ml Vial Administered 01/23/25 13:26 Dose 2 mg .ROUTE .STK-MED ONE Mineral Oil Confirm 01/23/25 12:19 Mineral Oil 10 Ml Vial Light Administered 01/23/25 12:20 Dose 10 ml .ROUTE .STK-MED ONE Non-Formulary Medication 1 each 01/22/25 15:41 01/23/25 23:19 Pharmacy Dose Request: Vancomycin 1 Each IV 01/22/25 15:42 1 each STAT STA Administration Non-Formulary Medication 1 g 01/22/25 16:00 01/23/25 22:46 Ertapenem Sodium [Invanz ] IV 02/21/25 15:59 Not Given Q24H DL Non-Formulary Medication 40 mg 01/23/25 10:00 Famotidine [Pepcid] PO 02/22/25 09:59 DAILY DL Phenylephrine HCl Confirm 01/23/25 13:24 Phenylephrine 10 Mg/Ml Vial Administered 01/23/25 13:25 Dose 10 mg .ROUTE .STK-MED ONE Propofol Confirm 01/23/25 13:24 Propofol 200 Mg/20 Ml Vial Administered 01/23/25 13:25 Dose 200 mg IV .STK-MED ONE Propofol Confirm 01/23/25 13:44 Propofol 200 Mg/20 Ml Vial Administered 01/23/25 13:45 Dose 200 mg IV .STK-MED ONE Propofol Confirm 01/23/25 14:03 Propofol 200 Mg/20 Ml Vial Administered 01/23/25 14:04 Dose 200 mg IV .STK-MED ONE Propofol Confirm 01/23/25 14:29 Propofol 200 Mg/20 Ml Vial Administered 01/23/25 14:30 Dose 200 mg IV .STK-MED ONE Thrombin Confirm 01/23/25 12:19 Thrombin 5000 Units/Vial Administered 01/23/25 12:20 Dose 5,000 units TP .STK-MED ONE Assessment/Plan (1) Toe infection Current Visit: No Status: Chronic Code(s): L08.9 - LOCAL INFECTION OF THE SKIN AND SUBCUTANEOUS TISSUE, UNSP (2) Vascular calcification Current Visit: No Status: Acute Code(s): I99.8 - OTHER DISORDER OF CIRCULATORY SYSTEM (3) Cellulitis of right leg Current Visit: No Status: Acute Code(s): L03.115 - CELLULITIS OF RIGHT LOWER LIMB (4) Osteomyelitis of right foot Current Visit: No Status: Chronic Assessment & Plan: bone biopsy obtained intraop to assess for further spread of OM secondary to wound dehisence. wound at this time closed and will be placed on IV abx at this time. [facility] recommended placed Outpatient culture obtaine 01/22/2025 demonstrating organisms consistent with normal skin abena. Will not follow this cutlure as in total over a 24 our period expressed close to 20 ccs of purulent drainage. Recommend broad spectrum abx but will hold for now. Continue vancomycin Patient is not amenable to rehab stay at this time and would like to go home. can provide transportation for IV abx if necessary. Patient open to [facility] for dressing changes. Awaiting bone biopsy results Blood cultures appear to be pending Pain control DVT prophylaxis Non weight bearing to the right extremity. Ok to transfer to bedside chair. Will follow with you Code(s): M86.9 - OSTEOMYELITIS, UNSPECIFIED (5) Edema of right lower extremity Current Visit: No Status: Acute Code(s): R60.0 - LOCALIZED EDEMA (6) Diabetes mellitus with insulin therapy Current Visit: No Status: Chronic Code(s): E11.9 - TYPE 2 DIABETES MELLITUS WITHOUT COMPLICATIONS; Z79.4 - FDC (CURRENT) USE OF INSULIN (7) Obesity Current Visit: No Status: Chronic Code(s): E66.9 - OBESITY, UNSPECIFIED (8) Abscess of skin of right ankle Current Visit: Yes Status: Acute Code(s): L02.415 - CUTANEOUS ABSCESS OF RIGHT LOWER LIMB (9) Cellulitis Current Visit: Yes Status: Acute Code(s): L03.90 - CELLULITIS, UNSPECIFIED
[2025-01-24 07:57] VITALS: RESP 20
[2025-01-24] MEDS: TROUGH DRUG LEVELS IJ ONE (09:24)
--- NOTE | 2025-01-24 09:48 | PCM.DS ---
Discharge Summary Date of Admission: 01/22/25 14:43 Date of Discharge: 01/24/25 Admitting Physician: TIFFANY YARBROUGH MD Consults: Consults on Case 01/22/25 15:52 Consult Podiatry ROUTINE 01/23/25 07:30 Notify Physician ROUTINE Primary Care Provider: BAYRON,ANGEL Allergies Allergies tizanidine Allergy (Severe, Verified 12/18/24 02:43) Anaphylactic Reaction moxifloxacin [From Avelox] Allergy (Mild, Verified 12/18/24 02:43) Fainting midazolam [From Versed] Adverse Reaction (Verified 12/18/24 02:43) Irregular Heart Beat Penicillins Adverse Reaction (Verified 12/18/24 02:43) Hives spironolactone [From Aldactone] Adverse Reaction (Verified 12/18/24 02:43) Irregular Heart Beat Hospital Summary - Hospital Course Hospital Course: 01/22/25 is a 74-year-old male with a past medical history of hypertension, hyperlipidemia, asthma, obesity, coronary artery disease, type II diabetes mellitus, and pacemaker/defibrillator placement. He was a direct admission by podiatry (Dr. Quiñones) for evaluation and management of a right ankle wound and abscess that was drained earlier today, associated with surrounding cellulitis. The patient also has a right great toe infection with a recent history of osteomyelitis. He was previously hospitalized from 12/17 to 12/21 and subsequently transferred to a rehabilitation facility for continued IV antibiotic therapy for right great toe osteomyelitis. Wound cultures from his prior admission were positive for Serratia marcescens and Enterobacter species, for which he was discharged on IV Invanz. Will continue IV Invanz and the addition of vancomycin. The patient will remain NPO after midnight in preparation for incision and drainage (I&D) scheduled for the morning. 01/23/25 Patient is resting comfortably in bed today and is awaiting incision and drainage (I&D) of the foot with podiatry in the operating room. Per podiatry, a skin graft may be required depending on intraoperative findings. Morning glucose was 57 mg/dL; therefore, LR with D5 was initiated. The patient remains NPO in preparation for the procedure. Vancomycin is being continued for management of the wound and possible osteomyelitis. A foot X-ray will be obtained today for further evaluation. Blood cultures 2 are pending. Invanz was discontinued, as the patient reports having completed this antibiotic regimen as an outpatient. Laboratory results are overall unremarkable, with a normal white blood cell count. The patient denies any new complaints or concerns at this time. 01/24/25 Patient is postop day 2 from procedure with podiatry. Per podiatry he was able to probe to bone, positive for a diagnosis of osteomyelitis. Podiatry states no further imaging required at this time. Patient did get a skin graft and area of foot has been left open. Podiatry came to rewrap the area today. After further discussion with Dr. Quiñones he is okay with patient D/C home today without PICC line and going home on oral antibiotics. Wound culture prior to admission was negative as well as blood cultures x 2 preliminary negative will continue to follow blood cultures outpatient. Labs overall non-concerning. Podiatry explained that patient is to stay off of the affected foot and follow-up Monday in the office. - Vitals & Intake/Output Vital Signs: Vital Signs Temperature 97.7 F 01/24/25 07:56 Pulse Rate 80 01/24/25 07:56 Respiratory Rate 20 01/24/25 07:56 Blood Pressure 144/67 01/24/25 07:56 O2 Sat by Pulse Oximetry 96 01/24/25 07:56 Intake & Output: Intake & Output 01/21/25 01/22/25 01/23/25 01/24/25 11:59 11:59 11:59 11:59 Intake Total 1040 2074 Output Total 650 Balance 1040 1424 Weight 103.1 kg 103.1 kg - Lab Result Diagrams: 01/24/25 04:20 01/24/25 04:20 Lab Results-Last 24 Hrs: Lab Results-Last 24 Hours 01/23/25 01/23/25 01/23/25 Range/Units 11:29 15:00 16:36 WBC (4.23-9.07) x10^3/uL RBC (4.63-6.08) x10^6/uL Hgb (13.7-17.5) g/dL Hct (40.1-51.0) % MCV (79.0-92.2) fL MCH (25.7-32.2) pg MCHC (32.3-36.5) g/dL RDW (11.6-14.4) % Plt Count (163-337) x10^3/uL MPV (9.4-12.4) fL Sodium (135-145) mmol/L Potassium (3.5-5.1) mmol/L Chloride (98-107) mmol/L Carbon Dioxide (22-30) mmol/L Anion Gap (5-15) MEQ/L BUN (9-20) mg/dL Creatinine (0.66-1.25) mg/dL Estimated GFR ML/MIN Glucose (74-106) mg/dL POC Glucometer 157 H 223 H 235 H (74 to 106) mg/dL Calcium (8.4-10.2) mg/dL Total Bilirubin (0.2-1.3) mg/dL AST (17-59) U/L ALT (0-50) U/L Alkaline Phosphatase (38-126) U/L Serum Total Protein (6.3-8.2) g/dL Albumin (3.5-5.0) g/dL Urine Color (Yellow) Urine Appearance (Clear) Urine pH (4.6-8.0) Ur Specific [place] (1.005-1.030) Urine Protein (Negative) Urine Glucose (UA) (Negative) mg/dL Urine Ketones (Negative) Urine Blood (Negative) Urine Nitrite (Negative) Urine Bilirubin (Negative) Urine Urobilinogen (0.2) mg/dL Ur Leukocyte Esterase (Negative) U Hyaline Cast (Auto) (0-2) /LPF Urine Microscopic RBC (0-5) /HPF Urine Microscopic WBC (0-5) /HPF Ur Epithelial Cells (None Seen) /HPF Urine Bacteria (None Seen) /HPF Urine Culture Reflexed (NO) 01/23/25 01/23/25 01/24/25 Range/Units 18:20 21:15 04:20 WBC 4.4 (4.23-9.07) x10^3/uL RBC 3.43 L (4.63-6.08) x10^6/uL Hgb 10.5 L (13.7-17.5) g/dL Hct 33.0 L (40.1-51.0) % MCV 96.2 H (79.0-92.2) fL MCH 30.6 (25.7-32.2) pg MCHC 31.8 L (32.3-36.5) g/dL RDW 13.5 (11.6-14.4) % Plt Count 148 L (163-337) x10^3/uL MPV 9.3 L (9.4-12.4) fL Sodium (135-145) mmol/L Potassium (3.5-5.1) mmol/L Chloride (98-107) mmol/L Carbon Dioxide (22-30) mmol/L Anion Gap (5-15) MEQ/L BUN (9-20) mg/dL Creatinine (0.66-1.25) mg/dL Estimated GFR ML/MIN Glucose (74-106) mg/dL POC Glucometer 331 H (74 to 106) mg/dL Calcium (8.4-10.2) mg/dL Total Bilirubin (0.2-1.3) mg/dL AST (17-59) U/L ALT (0-50) U/L Alkaline Phosphatase (38-126) U/L Serum Total Protein (6.3-8.2) g/dL Albumin (3.5-5.0) g/dL Urine Color Yellow (Yellow) Urine Appearance Clear (Clear) Urine pH 5.0 (4.6-8.0) Ur Specific [place] 1.010 (1.005-1.030) Urine Protein Negative (Negative) Urine Glucose (UA) >=1000 A (Negative) mg/dL Urine Ketones Trace A (Negative) Urine Blood Negative (Negative) Urine Nitrite Negative (Negative) Urine Bilirubin Negative (Negative) Urine Urobilinogen 0.2 (0.2) mg/dL Ur Leukocyte Esterase Negative (Negative) U Hyaline Cast (Auto) NONE SEEN (0-2) /LPF Urine Microscopic RBC 0-2 (0-5) /HPF Urine Microscopic WBC 0-2 (0-5) /HPF Ur Epithelial Cells None Seen (None Seen) /HPF Urine Bacteria None Seen (None Seen) /HPF Urine Culture Reflexed NO (NO) 01/24/25 01/24/25 Range/Units 04:20 07:21 WBC (4.23-9.07) x10^3/uL RBC (4.63-6.08) x10^6/uL Hgb (13.7-17.5) g/dL Hct (40.1-51.0) % MCV (79.0-92.2) fL MCH (25.7-32.2) pg MCHC (32.3-36.5) g/dL RDW (11.6-14.4) % Plt Count (163-337) x10^3/uL MPV (9.4-12.4) fL Sodium 135 (135-145) mmol/L Potassium 4.0 (3.5-5.1) mmol/L Chloride 102 (98-107) mmol/L Carbon Dioxide 31 H (22-30) mmol/L Anion Gap 7.2 (5-15) MEQ/L BUN 20 (9-20) mg/dL Creatinine 0.93 (0.66-1.25) mg/dL Estimated GFR 85.6 ML/MIN Glucose 122 H (74-106) mg/dL POC Glucometer 143 H (74 to 106) mg/dL Calcium 8.4 (8.4-10.2) mg/dL Total Bilirubin 0.40 (0.2-1.3) mg/dL AST 25 (17-59) U/L ALT 15 (0-50) U/L Alkaline Phosphatase 40 (38-126) U/L Serum Total Protein 5.8 L (6.3-8.2) g/dL Albumin 3.7 (3.5-5.0) g/dL Urine Color (Yellow) Urine Appearance (Clear) Urine pH (4.6-8.0) Ur Specific [place] (1.005-1.030) Urine Protein (Negative) Urine Glucose (UA) (Negative) mg/dL Urine Ketones (Negative) Urine Blood (Negative) Urine Nitrite (Negative) Urine Bilirubin (Negative) Urine Urobilinogen (0.2) mg/dL Ur Leukocyte Esterase (Negative) U Hyaline Cast (Auto) (0-2) /LPF Urine Microscopic RBC (0-5) /HPF Urine Microscopic WBC (0-5) /HPF Ur Epithelial Cells (None Seen) /HPF Urine Bacteria (None Seen) /HPF Urine Culture Reflexed (NO) Micro Results-Entire Visit: Microbiology 01/22/25 15:45 Blood Culture - Preliminary Blood 01/22/25 15:31 Blood Culture - Preliminary Blood Accuchecks Date 01/24/25 Date 01/23/25 Date 01/23/25 Time 16:52 Time 11:43 - Radiology Exams Ordered Rad Exams-Entire Visit: Radiology Procedures Category Date Time Status LOWER LEG Routine Exams 01/23/25 10:14 Completed - Procedures and Test Procedures and Tests throughout Hospitalization: Therapy Orders & Screens 01/23/25 10:58 EKG ROUTINE Comment: Diagnosis: Osteomyelitis EKG Reason: Other 01/23/25 11:47 Respiratory Therapy Consult ONCE Comment: Reason For Exam: Diagnosis: Osteomyelitis Discharge Exam General Appearance: no apparent distress, alert, obese Neurologic Exam: alert, oriented x 3, cooperative, normal mood/affect, nml cerebellar function, sensation nml, No motor deficits Eye Exam: PERRL, EOMI, eyes nml inspection Ears, Nose, Throat Exam: normal ENT inspection, pharynx normal, moist mucous membranes Neck Exam: normal inspection, non-tender, supple, full range of motion Respiratory Exam: normal breath sounds, lungs clear, No respiratory distress Cardiovascular Exam: regular rate/rhythm, normal heart sounds Gastrointestinal/Abdomen Exam: soft, No tenderness, No mass Male Genitalia Exam: deferred Rectal Exam: deferred Back Exam: normal inspection, normal range of motion, No CVA tenderness, No vertebral tenderness Extremity Exam: normal inspection, normal range of motion, tenderness (Right lower extremity, wrapped) Skin Exam: normal color, warm, dry Final Diagnosis/Problem List - Final Discharge Diagnosis/Problem (1) Toe infection Current Visit: No Status: Chronic Code(s): L08.9 - LOCAL INFECTION OF THE SKIN AND SUBCUTANEOUS TISSUE, UNSP (2) Abscess of skin of right ankle Current Visit: Yes Status: Acute Code(s): L02.415 - CUTANEOUS ABSCESS OF RIGHT LOWER LIMB (3) Osteomyelitis of right foot Current Visit: No Status: Chronic Code(s): M86.9 - OSTEOMYELITIS, UNSPECIFIED (4) Cellulitis Current Visit: Yes Status: Acute Code(s): L03.90 - CELLULITIS, UNSPECIFIED (5) CAD (coronary artery disease) Current Visit: No Status: Chronic Code(s): I25.10 - ATHSCL HEART DISEASE OF [place] CORONARY ARTERY W/O ANG PCTRS (6) Diabetes mellitus with insulin therapy Current Visit: No Status: Chronic Code(s): E11.9 - TYPE 2 DIABETES MELLITUS WITHOUT COMPLICATIONS; Z79.4 - JAIL (CURRENT) USE OF INSULIN (7) HTN (hypertension) Current Visit: No Status: Chronic Code(s): I10 - ESSENTIAL (PRIMARY) HYPERTENSION (8) Obesity Current Visit: No Status: Chronic Assessment & Plan: 1) Toe infection Current Visit: No Status: Chronic Assessment & Plan: - Pt recently admitted for this and d/c'd to rehab for IV Invanz OP - Ongoing with recent amputation 2 weeks ago. - CBC, CMP pending - BC x2 - Prostat 64 - WBC normal 01/23 - XR RLE today to eval for osteomyelitis - CBC, MCP reviewed - Vanomycin IV - Per podiatry: dehiscence at the right great toe amputation site- seen on 01/22 01/23 - POD #2 procedure with podiatry- Per podiatry notes: bone biopsy obtained intraop to assess for further spread of OM secondary to wound dehisence. wound at this time closed and will be placed on IV abx at this time. - Awaiting bone biopsy results - Blood cultures Prelim negative - CBC, CMP reviewed - Narcotic pain control - Per podiatry: Non weight bearing to the right extremity. Ok to transfer to bedside chair. - Pt to f/u with podiatry Monday in office Code(s): L08.9 - LOCAL INFECTION OF THE SKIN AND SUBCUTANEOUS TISSUE, UNSP (2) Abscess of skin of right ankle Current Visit: Yes Status: Acute Assessment & Plan: - Drained in office by podiatry today (01/22) with cultures pending - Pt to have I&D in OR tomorrow with Dr. Quiñones- NPO after midnight - Vancomycin IV - Podiatry consult IP 01/23 - I&D today - Podiatry consult - Reviewed note and agree with plan of care. - Per podiatry - noted drainage of approximately 57 cc of purulent material from a right leg abscess on 01/22 - Tib/fib XR: 2 view right lower leg demonstrates overlying bandaging material limiting exam. Otherwise osteopenia, intact total knee arthroplasty, old medial malleolus fracture with intact orthopedic screws, tiny plantar heel spur, and extensive vascular calcifications. No other bony, articular, or soft tissue abnormalities. 01/24 - Wound culture negative - PO antibiotic OP - RLE rewrapped by podiatry today - + Skin graft to area- ankle/leg region Code(s): L02.415 - CUTANEOUS ABSCESS OF RIGHT LOWER LIMB (3) Osteomyelitis of right foot Current Visit: No Status: Chronic Assessment & Plan: - Chronic - Podiatry consult- reviewed note and discussed in detail with podiatry - + prob to bone per podiatry - No further imaging per podiatry Code(s): M86.9 - OSTEOMYELITIS, UNSPECIFIED (4) Cellulitis Current Visit: Yes Status: Acute Assessment & Plan: - RLE - IV antibiotic Code(s): L03.90 - CELLULITIS, UNSPECIFIED (5) CAD (coronary artery disease) Current Visit: No Status: Chronic Assessment & Plan: - Chronic - No acute concern - Continue home meds Code(s): I25.10 - ATHSCL HEART DISEASE OF [place] CORONARY ARTERY W/O ANG PCTRS (6) Diabetes mellitus with insulin therapy Current Visit: No Status: Chronic Assessment & Plan: - Accuchecks AC/HS - Continue home dose of insulin - S/S started - A1C 6.31- Controlled Code(s): E11.9 - TYPE 2 DIABETES MELLITUS WITHOUT COMPLICATIONS; Z79.4 - MANAGER SIMULATION (CURRENT) USE OF INSULIN (7) HTN (hypertension) Current Visit: No Status: Chronic Assessment & Plan: - BP stable - Continue home meds Code(s): I10 - ESSENTIAL (PRIMARY) HYPERTENSION (8) Obesity Current Visit: No Status: Chronic Assessment & Plan: - Advised ADA diet and exercise control D/C plan: 40 minutes D/C med new: Ken Code(s): E66.9 - OBESITY, UNSPECIFIED - Discharge Discharge Date: 01/24/25 Disposition: Home, Self-Care Condition: Stable Prescriptions: Continue Furosemide 20 mg [Lasix 20 mg] 40 mg PO DAILY Zolpidem Tartrate 10 mg [Ambien 10 MG] 10 mg PO HS Vitamin E 400 unit PO DAILY Tamsulosin HCl [Flomax] 0.4 mg PO HS Multivitamin [Multivitamins] 1 each PO HS Magnesium Oxide 400 mg [Mag-Ox 400] 400 mg PO BID Cholecalciferol (Vitamin D3) [Vitamin D] 2,000 unit PO DAILY carvediloL [Coreg] 25 mg PO BID Acetaminophen [Tylenol Extra Strength] 500 mg PO Q6H PRN PRN Reason: Pain Insulin NPH/Reg 70/30 [Novolin 70/30] 40 unit SQ UD Famotidine [Pepcid] 40 mg PO DAILY Gabapentin [Neurontin] 300 mg PO BID Fluticasone/Vilanterol [Breo Ellipta 200-25 Mcg Inhalr] See Rx Instructions .ROUTE .COMPLEX Folic Acid 1 mg [Folate 1 mg] 1 mg PO DAILY Prednisone 10 mg [Deltasone 10 mg] 5 mg PO DAILY Methotrexate Sodium 2.5 mg [Trexall 2.5 mg] 2.5 mg PO UD Tocilizumab [Actemra Actpen] 1 mg SQ WEEKLY Finasteride 5 mg [Proscar 5 MG] 5 mg PO DAILY Eplerenone 25 mg PO DAILY Albuterol/Ipratropium 3ml Neb* [DUONEB 0.5-3 MG/3 ml Neb] 3 ml IH Q4HPRN PRN PRN Reason: Shortness Of Breath/Wheezing Ertapenem Sodium [Invanz ] 1 g IV Q24H 14 Days Amlodipine Besylate 5 mg [Norvasc 5 mg] 5 mg PO QAM tablet Apixaban [Eliquis 2.5 mg Tablet] 5 mg PO BID Changed Hydrocodone/Acetaminophen [[place] 10-325 mg] 1 each PO QID PRN PRN 3 Days #18 tablet MDD 6 PRN Reason: Pain Additional Instructions: * Do not walk on affected foot * No not remove dressings. Follow up with: JESUS JONES DPM [ACTIVE STAFF, PODIATRY] - 01/27/25 10:00 am
[2025-01-24 12:37] VITALS: BP 140/63; PULSE 76; TEMP 97.9; O2SAT 98
--- NOTE | 2025-01-27 08:31 | OP ---
SURGERY DATE/TIME: 01/23/2025 [id number] PREOPERATIVE DIAGNOSES: 1) Right ankle abscess. 2) Diabetic foot ulcer. 3) Dehiscence of surgical wound, right foot. 4) Osteomyelitis. 5) Peripheral vascular disease. 6) Difficulty with ambulation. 7) Diabetic peripheral neuropathy. POSTOPERATIVE DIAGNOSES: 1) Right ankle abscess. 2) Diabetic foot ulcer. 3) Dehiscence of surgical wound, right foot. 4) Osteomyelitis. 5) Peripheral vascular disease. 6) Difficulty with ambulation. 7) Diabetic peripheral neuropathy. PROCEDURES: 1) Incision and drainage to right ankle abscess to the level of the muscle. 2) Partial first ray resection, right foot. 3) Abductor hallucis muscle flap. 4) Delayed primary closure of right foot wound. 5) Wound debridement of 3 small wounds, left and 20 sq cm in total to the level of subcutaneous. 6) Split thickness skin graft right thigh to right foot. SURGEON: Ishmael Paige DPM CHEMIST: None. ANESTHESIA: Monitored anesthesia care. HEMOSTASIS: Pressure dressing. ESTIMATED BLOOD LOSS: Approximately 10 mL. MATERIALS: 2-0 Vicryl and 3-0 nylon and 4-0 nylon. INDICATIONS FOR PROCEDURE: The patient is a very pleasant 74-year-old male, very well known to my service for multiple wounds. In the last month, patient did have a hospitalization for sepsis which was stemming from his great toe on the right foot that developed osteomyelitis. He subsequently had an amputation and did very well with IV antibiotics and being in the rehab facility. Once the patient was out of the rehab facility, there were a number of new issues that developed including a wound to the lateral fifth metatarsal head. A wound to the anterior ankle, posterior heel wound as well as an abscess that developed in the last week. This abscess is isolated to an area just above the ankle where any of these other issues are and seems to be an isolated event with surrounding cellulitis. Patient was sent for direct admission to the floor to begin IV antibiotics for which at this point, he is on vancomycin. Discussion was held with the patient in regard to multiple issues and surgical dehiscences as well as potential risks and complications. From that standpoint, we have discussed a game plan in order to get him completely healed of all these sites prior to him getting back up on it with a possibility of rehab stay but with definitive PICC line placement and IV antibiotics in hopes to close the wound within a reasonable amount of time for wound healing. From that standpoint, patient has been made aware of all risks, complications, and benefits of surgical intervention at this time including, but not limited to, infection, hematoma, seroma, possibility of delayed wound healing, non-wound healing, and possible need for further surgical intervention at a later date. No guarantees were provided as to the outcome. Plenty of time was allowed for the patient and his to ask questions, which were answered to his apparent satisfaction. It is at this time we decided to proceed. DESCRIPTION OF PROCEDURE AND FINDINGS: Patient was brought into the operating room, placed on the operating room table in the supine position. At this time, monitored anesthesia care was administered until the patient was adequately sedated. Once the patient was sedated, the right lower extremity was prepped and draped in the typical sterile fashion. At this time, attention was directed to the abscess at the right ankle where a linear incision was made approximately 4.5 cm in length expressing approximately 20 mL of fibropurulent drainage. At this time, this was hand expressed and then 1000 mL of Bactisure was utilized to flush the surgical site and then 1000 mL of sterile saline was utilized to flush the surgical site. This wound was packed with Iodoform gauze soaked in iodine and left open. Attention then was directed with new material to the hallux amputation site where the wound was excised and immediately, the bone looked suspect for softness of the quality of bone with some level of cortical erosion. Decision was made to proceed with the partial first ray resection along with the sesamoids. Once this was removed from the surgical site, it was cleansed with copious amounts of sterile saline. This was sent for pathological assessment at this time and handed off the field. Attention was directed to the abductor hallucis muscle belly where this was rotated around the front of the medullary cavity and stitched to the periosteum of the first ray providing additional bulk to the weightbearing surface. Improved blood supply to both the skin and the bone and better antibiotic delivery through the very well-vascularized muscle. From that standpoint, the wound edges were then excised until all dog ears were identified and corrected for. Then, 4-0 Monocryl was then utilized to coapt the subcutaneous skin edges in a simple interrupted buried-type fashion and then 3-0 nylon was then utilized in a horizontal mattress type fashion to coapt the skin. Attention was then directed to the wounds at the dorsal aspect of the foot measuring 2.6 x 0.6 x 0.2. The lateral side of the foot which was measuring 1.2 x 1.3 x 0.2 and then the anterior ankle which was 1.5 x 1.5 x 0.1. Debridement was performed on all of these wounds utilizing a clean curette for each one. This was cleansed with copious amounts of sterile saline. The dermatome was then utilized after giving a 10 mL injection of lidocaine 1% with epinephrine to the right thigh, taking a 2-inch x 1-inch rectangle of skin and then running through the mesher at a 1:1.5 ratio. Once this was accomplished, the graft was then split into 3 separate pieces and then stitched with simple interrupted sutures to the wound base and bolstered. Following this, the leg was cleansed. A dressing consisting of Betadine, Adaptic, 4 x 4's, Kerlix, ABD, and Valentin was then applied to the patient's right lower extremity. A separate dressing was placed to the thigh consisting of Tegaderm, Adaptic, and 4 x 4 gauze. Patient then was reversed from anesthesia and returned to the postoperative anesthesia care unit with vital signs stable and vascular status intact. Patient handled the anesthesia as well as the procedure without significant complication. Postoperative orders as indicated in the patient's discharge chart.
== END 2025-01-24 15:03 | disposition home or self-care (01) ==
LOC: MED SURG 14:43
PROVIDERS: ADMIT Internal Medicine; ATTEND Internal Medicine
DX: L08.9 Local infection of the skin and subcutaneous tissue, unspecified (principal); L02.415 Cutaneous abscess of right lower limb; M86.9 Osteomyelitis, unspecified; L03.90 Cellulitis, unspecified; I25.10 Atherosclerotic heart disease of native coronary artery without angina pectoris; E11.9 Type 2 diabetes mellitus without complications; Z79.4 Long term (current) use of insulin; I10 Essential (primary) hypertension; E66.9 Obesity, unspecified; I99.8 Other disorder of circulatory system; L03.115 Cellulitis of right lower limb; R60.0 Localized edema; E78.5 Hyperlipidemia, unspecified; E11.621 Type 2 diabetes mellitus with foot ulcer; T81.30XA Disruption of wound, unspecified, initial encounter; I73.9 Peripheral vascular disease, unspecified; R26.2 Difficulty in walking, not elsewhere classified; Z79.899 Other long term (current) drug therapy; Z79.01 Long term (current) use of anticoagulants
CPT/HCPCS: 00400; 01470; 01480; 11042; 13160; 15100; 15738; 27603; 28810; 29581; 36415; 73590; 80053; 81001; 82947; 85027; 87040; 88304; 88311; 93005; 99100; 99232; A6260; G0378; Q3014